=== PATIENT | male | born 1960 | race Caucasian/White ===

== ENCOUNTER 2018-01-20 01:26 | Inpatient (IN) | payer OTHER ==
[2018-01-20] MEDS ORDERED: Fentanyl 100 MCG/2 ML VIAL ONE (02:33)
[2018-01-20 02:54] LABS: Troponin I Less than 0.010 ng/mL (< 0.028)
[2018-01-20] MEDS ORDERED: Sodium Chloride 0.9% 1,000 ML IV SCH (05:59)
[2018-01-20] MEDS ORDERED: Zolpidem Tartrate 5 MG TAB PO PRN (07:05)
[2018-01-20] MEDS ORDERED: Eucerin (Mineral Oil/Petrolatum,White) 30 gm Jar TOP PRN (07:05)
[2018-01-20] MEDS ORDERED: Ondansetron ODT 4 MG TAB PO PRN (07:05)
[2018-01-20] MEDS ORDERED: Labetalol HCl 100 MG/20 ML VIAL SLOW IVP PRN (07:05)
[2018-01-20] MEDS ORDERED: Sodium Chloride 0.65% Nasal 44 ML BOT EA NARE PRN (07:05)
[2018-01-20] MEDS ORDERED: Loratadine 10 MG TAB PO PRN (07:05)
[2018-01-20] MEDS ORDERED: Morphine 4 MG/ML Carpuject SLOW IVP PRN (07:05)
[2018-01-20] MEDS ORDERED: Mag-Al 1200 mg/1200 mg/30 ML UDCUP PO PRN (07:05)
[2018-01-20] MEDS ORDERED: HYDROcodone/Acetaminophen 5/325 mg Tablet PO PRN (07:05)
[2018-01-20] MEDS ORDERED: Chloraseptic Spray 180 ml Bottle PO PRN (07:05)
[2018-01-20] MEDS ORDERED: Milk Of Magnesia 30 ML UDCUP PO PRN (07:05)
[2018-01-20] MEDS ORDERED: Loperamide HCl 2 MG CAP PO PRN (07:05)
[2018-01-20] MEDS ORDERED: Acetaminophen 325 MG TAB PO PRN (07:05)
[2018-01-20] MEDS ORDERED: Ondansetron HCl/PF 4 MG/2 ML Vial IVP PRN (07:05)
[2018-01-20] MEDS ORDERED: Diabetic Tussin 200 MG/10 ML UDCUP PO PRN (07:05)
[2018-01-20] MEDS ORDERED: Senokot 8.6 MG TAB PO PRN (07:05)
[2018-01-20] MEDS ORDERED: hydrALAZINE 20 MG/ML VIAL SLOW IVP PRN (07:05)
[2018-01-20] MEDS ORDERED: Artificial Tears 18 DROP/0.9 ML EA EYE PRN (07:05)
[2018-01-20 08:02] VITALS: BMI 32.8
[2018-01-20] MEDS: Famotidine/PF 20 mg/2ml Vial SLOW IVP SCH ×2 (09:26→21:47)
[2018-01-20] MEDS: Enoxaparin Sodium 40 MG/0.4 ML SYRINGE SC SCH (09:26)
[2018-01-20] MEDS: Morphine 4 MG/ML VIAL IV PRN ×4 (09:26→22:50)
--- NOTE | 2018-01-20 10:38 | ULT ---
PRELIMINARY REPORT/[facility]/EMERGENTY AFTER-HOURS PROCEDURE US Abdomen Limited, Right Upper Quadrant EXAM DATE/TIME: Exam ordered 01/20/2018 2:44 AM CLINICAL HISTORY: 57 years old, male; Pain; Abdominal pain; Epigastric; Patient HX: Epigastric pain x 2 days TECHNIQUE: Real-time ultrasound of the right upper quadrant with image documentation. COMPARISON: No relevant prior studies available. FINDINGS: Liver: The liver is echogenic in appearance compatible with fatty liver. There is a focal area of dec reased echogenicity suggestive of focal fatty sparing. No intrahepatic bile duct dilation. Gallbladder: There is no cholelithiasis, gallbladder wall thickening or pericholecystic fluid. A nega tive sonographic Johnson sign is reported. Common bile duct: CBD measures 3 mm in diameter. No stones. No dilation. Pancreas: The pancreas is poorly-visualized due to overlying bowel gas. Right kidney: RIGHT kidney measures 10.3 x 5.8 x 4.8 cm. No stones. No hydronephrosis. IMPRESSION: No ultrasound evidence of acute RIGHT upper quadrant pathology. Hepatic steatosis with focal fatty sparing. Thank you for allowing us to participate in the care of your patient. Dictated and Authenticated by: Osiel Bermudez MD 01/20/2018 5:40 AM Central Time ([place] & [place]) FINAL REPORT ULTRASOUND RIGHT UPPER QUADRANT: HISTORY: Epigastric abdominal pain. COMPARISON: CT of the prior day. FINDINGS: Real-time, lozano scale, and color Doppler evaluation of the right upper quadrant was performed. Pancr eas is not well seen. Increased hepatic echotexture. The portal vein is patent with antegrade flow. The liver measures 18.4 cm in length with increased hepatic echotexture. Gallbladder wall thickness is normal. No cholelithiasis. The right kidney measures 10.3 x 5.8 x 4.8 cm without mass, hydronephrosis, or ab normal calcifications. There appears to be a focal area of fatty sparing along the right lobe of the liver posteriorly. IMPRESSION: 1. No acute intraabdominal abnormality. No gallbladder pathology. 2. Likely focal area of fatty sparing along the right posterior lobe of the liver that seen on CT ex amination abnormally. CODE: QA POS: [facility]
--- NOTE | 2018-01-20 10:57 | HP ---
PRIMARY CARE PHYSICIAN: [facility] call admission. REASON FOR ADMISSION: Transfer from [facility] with acute pancreatitis. HISTORY OF PRESENT ILLNESS: A 57-year-old male who initially went to [facility] for evalu ation of epigastric abdominal pain. Patient's pain started around 4 a.m. prior to coming to emergenc y room. Patient was pointing his pain in epigastric area. Patient did felt some vague discomfort on his back, but he is not sure about radiation of pain. He was feeling nauseated and pain was constan t about 8/10 in intensity. There was no specific relieving factor. The patient denies any associate d diaphoresis. Patient denies any shortness of breath, palpitation, dizziness or syncope. He denies any fever or chills. Patient does not recall any precipitating factors for this recurrent pain and he was not sure how this pain started. He drank only one glass of beer 1 week before, but he is not alcoholic. He denies any fever or chills. He denies any UTI symptoms. He denies any hematemesis, m jose carlos or hematochezia. Patient has a history of hypertension and dyslipidemia, and that is well controlled with his medicati on. At [facility], patient was given morphine 4 mg x3 and Zofran [address] angiography wa s done which did not show any dissection, but it showed focal pancreatitis. Patient was transferred from [facility] to our emergency room and subsequently he was admitted to medical floor. The patient denies any similar problem in the past. REVIEW OF SYSTEMS: The following complete review of systems was negative, unless otherwise mentioned in the HPI or below: Constitutional: Weight loss or gain, ability to conduct usual activities. Skin: Rash, itching. Eyes: Double vision, pain. ENT/Mouth: Nose bleeding, neck stiffness, pain, tenderness. Cardiovascular: Palpitations, dyspnea on exertion, orthopnea. Respiratory: Shortness of breath, wheezing, cough, hemoptysis, fever or night sweats. Gastrointestinal: Poor appetite, abdominal pain, heartburn, nausea, vomiting, constipation, or diarr hea. Genitourinary: Urgency, frequency, dysuria, nocturia. Musculoskeletal: Pain, swelling. Neurologic/Psychiatric: Anxiety, depression. Allergy/Immunologic: Skin rash, bleeding tendency. Please see my HPI for pertinent positive and negative. All other review of systems reviewed and nega tive except as mentioned in the HPI. PAST MEDICAL HISTORY: Hypertension, dyslipidemia. PAST SURGICAL HISTORY: Left knee surgery x4, tonsillectomy, some tumor removed from his left chest. PAST PSYCHIATRIC HISTORY: Reviewed and negative. SOCIAL HISTORY: Patient is chewing tobacco. He is a former drug abuser. He abused cocaine and imer fidelina. He drinks alcohol twice a month. FAMILY HISTORY: No strong family history of premature coronary artery disease, stroke or cancer. ALLERGIES: PENICILLIN. CURRENT HOME MEDICATIONS: Lisinopril 10 mg p.o. daily, Lipitor 20 mg p.o. daily. EMERGENCY ROOM COURSE: Patient was given morphine 4 mg x3, Zofran 4 mg at [facility]. In our emergency room, patient was given fentanyl 50 microgram and morphine 2 mg. PHYSICAL EXAMINATION: VITAL SIGNS: On arrival, blood pressure 154/92, pulse 65, respiratory rate 18, temperature 98.9, sat uration 97% on room air, weight of 106.6 kilograms. GENERAL: Patient is currently alert, awake, no obvious acute distress. HEAD: Normocephalic, atraumatic. EYES: Pupils round, reactive to light. Extraocular muscle intact. ENT: Oropharynx within normal limits. Moist mucous membranes. No oral lesion, no pharyngeal erythe ma, no exudate. NECK: Supple, no JVD, no thyromegaly, no carotid bruit, no jugular venous distention. LUNGS: Clear to auscultation without any rhonchi or rales. CARDIAC: S1, S2 regular. No murmur, no gallop, no rub. ABDOMEN: Patient does have epigastric tenderness on deep palpation. No peritoneal sign, no guarding , no rigidity, no rebound, no suprapubic tenderness, no Johnson sign. BACK: Examination unremarkable, no CVA tenderness. EXTREMITIES: Upper extremity passive movements of all joints are normal. Lower extremities: No lukas ma. Good peripheral pulsation. SKIN: No skin rash. HEMATOLOGICAL SYSTEM: No lymphadenopathy. PSYCHIATRIC: Normal affect. IMAGING DATA AND SIGNIFICANT LABORATORY DATA: EKG showing normal sinus rhythm without any ischemic c hanges. CT dissection protocol, which was done in the emergency room showed mild inflammatory change s in pancreatic head. Thoracic and abdominal aorta within normal limits without any dissection. Jeimy st x-ray based on my review, no acute cardiopulmonary process. CBC: WBC 14.0, hemoglobin 15.0, plat elet 214. BMP: Sodium 140, potassium 3.7, chloride 106, carbon dioxide 22, anion gap 16, BUN 15, cr eatinine 1.05, glucose of 103, calcium 9.6. LFT: AST 33, ALT 48, alkaline phosphatase 122, albumin 4.3. Cardiac enzymes negative x2. Lipase 32. ASSESSMENT AND PLAN/IMPRESSION: 1. Acute focal pancreatitis. Patient has pancreatic head inflamed. Surprisingly, his lipase is nor mal. The patient's clinical presentation is consistent with epigastric abdominal pain which radiates a little bit on the back associated with nausea. Etiology of pancreatitis is not known, but we are going to do ultrasound right upper quadrant to rule out any gallbladder pathology. If we are not abl e to find any specific etiology of his pancreatitis, then patient may need outpatient endoscopic ultr asound for further evaluation. We will check lipid profile. We will repeat labs again today. We wi ll repeat labs again tomorrow CBC, CMP, lipase, lipid profile, CRP, magnesium and phosphorus. Today, we will start liquid diet in evening time. We will continue with Pepcid 20 mg p.o. twice daily. We will continue IV fluid with NS at 125 mL per hour. We will treat symptomatically. 2. Hypertension. We will continue lisinopril 10 mg p.o. daily and use hydralazine p.r.n. basis.. 3. Dyslipidemia. We will continue Lipitor 20 mg p.o. at bedtime and check lipid profile tomorrow mo rning. 4. Obesity with body mass index 32. Dietary education given, weight loss education given. Healthy lifestyle measures discussed with the patient. 5. Intermittent alcohol use as well as tobacco chewing. I have provided patient education about hea lthy lifestyle and avoidance of alcohol as well as tobacco products. 6. Deep venous thrombosis prophylaxis, Lovenox 40 mg subcu daily. 7. Gastrointestinal prophylaxis, Pepcid 20 mg IV b.i.d. 8. Code status: The patient is FULL CODE. The patient does not have any surrogate decision maker. Disposition plan based on clinical course. We are expecting patient's stay in hospital more than 2 m idnights. Plan of care discussed with the patient in detail.
[2018-01-20] MEDS: Sodium Chloride 0.9% 1,000 ML IV SCH ×2 (13:32→21:51)
--- NOTE | 2018-01-20 19:57 | CON ---
DATE OF CONSULTATION: 01/20/2018 HISTORY OF PRESENT ILLNESS: The patient is a 57-year-old male who was in normal state of h ealth until yesterday. In the machine burrer hours, when he developed severe lower chest pain, this w as in the lower chest epigastric area. He said it was severe, constant, nonradiating. He sought car e in the emergency room and a CT dissection was performed. This showed mild inflammatory stranding a djacent to the pancreatic head. Findings may have felt to be related to pancreatitis. No other abno rmalities were noted. The patient here subsequently underwent an abdominal ultrasound which showed n o abnormalities. The patient received analgesics and is feeling much better. He is hungry and never lost his appetite during this episode, he had no nausea, vomiting. He has had no prior episodes of this in the past. PAST MEDICAL HISTORY: Significant for hypertension and high cholesterol. PAST SURGICAL HISTORY: Includes knee surgery and tonsillectomy. SOCIAL HISTORY: He chews tobacco, drinks one beer occasionally. FAMILY HISTORY: Negative for pancreatic disorders. ALLERGIES: PENICILLIN. HOME MEDICATIONS: Include lisinopril 10 mg p.o. daily, atorvastatin 20 mg p.o. q.p.m. REVIEW OF SYSTEMS: CONSTITUTIONAL: No fever, chills, no weight loss. EYES: No blurred vision or d ouble vision. ENT: No sore throat or earaches. CARDIOVASCULAR: No chest pain or palpitations. PU LMONARY: No shortness of breath, cough or wheezing. GASTROINTESTINAL: See above. : No hematuri a or dysuria. MUSCULOSKELETAL: No joint pain or muscle weakness. SKIN: No rashes. NEUROLOGIC: N o numbness or seizure activity. PHYSICAL EXAMINATION: VITAL SIGNS: Shows temperature 97.9, pulse 54, respiratory rate 12, blood pressure 133/75. HEENT: Unremarkable. NECK: Supple. CHEST: Clear. CARDIOVASCULAR: Regular rate and rhythm. ABDOMEN: Soft and nontender without organomegaly or masses. LABORATORY DATA: Shows a white blood cell count 14.0, hemoglobin 15, hematocrit of 47.6. Chemistry is totally normal with a lipase of 32. ASSESSMENT: Epigastric pain - this might be mild pancreatitis, although his lipase is normal. RECOMMENDATIONS: 1. EGD. 2. Begin clear liquids.
[2018-01-20] MEDS ORDERED: Atorvastatin Calcium 20 MG TAB PO SCH (21:00)
[2018-01-21] MEDS: Sodium Chloride 0.9% 1,000 ML IV SCH ×2 (00:16→05:56)
[2018-01-21 05:32] LABS: #Eosinphils 0.1 thou/uL (0.0-0.7); #Lymphocytes 2.9 thou/uL (1.20-3.40); #Monocytes 0.6 thou/uL (0.11-0.59); #Neutrophils 5.1 thou/uL (1.40-6.50); %Basophils 0.2 % (0.0-1.0); %Eosinophils 1.4 % (0.0-10.0); %Lymphocytes 33.4 % (21.0-51.0); Hemoglobin 13.4 g/dL (14.0-18.0); Mean Corpuscular HGB CONC 32.4 g/dL (32.0-36.0); Mean Corpuscular Hemoglobin 29.7 pg (27.0-31.0); Mean Corpuscular Volume 91.7 fL (78.0-98.0); Mean Platelet Volume 8.5 fL (7.4-10.4); Platelet Count 167 thou/uL (130-400); RBC Distribution Width 12.4 % (11.5-14.5); White Blood Cell (WBC) Count 8.8 thou/uL (4.8-10.8)
[2018-01-21] MEDS: Morphine 4 MG/ML VIAL IV PRN (05:47)
[2018-01-21 05:59] LABS: ALT (SGPT) 35 U/L (8-55); AST (SGOT) 22 U/L (5-34); Albumin 3.6 g/dL (3.5-5.0); Alkaline Phosphatase 110 U/L (40-150); Anion Gap 10 mmol/L (10-20); BUN (Urea Nitrogen) 12 mg/dL (8.4-25.7); Bilirubin, Total 0.9 mg/dL (0.2-1.2); CRP (Inflammatory) 9.34 mg/dL (= or < 0.5); Calc. Creatinine Clearance 166 mL/min (70-130); Calcium 8.8 mg/dL (7.8-10.44); Carbon Dioxide 26 mmol/L (22-29); Cardiac Risk 3.7 (Less than 4.5); Chloride 107 mmol/L (98-107); Cholesterol 151 mg/dl (< 200 Desired); Estimated GFR-MDRD Greater than 90; Globulin 2.3 g/dL (2.4-3.5); Glucose 84 mg/dL (70-105); HDL Cholesterol 41 mg/dL (>60 Neg Risk); LDL Cholesterol, Calculated 93 mg/dL; Potassium 3.8 mmol/L (3.5-5.1); Protein, Total 5.9 g/dL (6.0-8.3); Sodium 139 mmol/L (136-145); Triglycerides 85 mg/dL (Less than 150)
[2018-01-21] MEDS ORDERED: Lisinopril 10 MG TAB PO SCH (09:00)
[2018-01-21] MEDS ORDERED: Ondansetron HCl/PF 4 MG/2 ML Vial IVP PRN (09:58)
[2018-01-21] MEDS ORDERED: Promethazine HCl 25 MG/ML VIAL SLOW IVP PRN (09:58)
[2018-01-21] MEDS ORDERED: Morphine Sulfate 2 MG/ML SYRINGE SLOW IVP PRN (09:58)
[2018-01-21] MEDS ORDERED: Promethazine HCl 25 MG/ML VIAL IM PRN (09:58)
[2018-01-21] MEDS ORDERED: Meperidine HCl/PF 25 MG/ML VIAL SLOW IVP PRN (09:58)
--- NOTE | 2018-01-21 10:17 | OP ---
PREOPERATIVE DIAGNOSIS: Epigastric pain. DESCRIPTION OF PROCEDURE: After informed consent was obtained, the patient was placed in the left la teral decubitus position. Anesthesia was administered per the Anesthesia Department. Forward-viewin g endoscope was inserted into the esophagus under direct visualization with ease and passed to the se cond portion of the duodenum with ease. Second portion of the duodenum and duodenal bulb were normal . Pylorus, antrum, body, fundus, and cardia were normal. Retroflexion in the stomach was normal. E sophagus was normal throughout. ASSESSMENT: Normal esophagogastroduodenoscopy. RECOMMENDATIONS: 1. We will treat as if he has pancreatitis. 2. Begin clear liquids.
--- NOTE | 2018-01-21 11:25 | PDOC.PN ---
- Subjective Encounter Start Date: 01/21/18 Encounter Start Time: 08:00 Patient seen and examined. No new complaints. No overnight events - Objective Resuscitation Status: Resuscitation Status FULL:Full Resuscitation MAR Reviewed: Yes Vital Signs & Weight: Vital Signs (12 hours) Temp Pulse Resp BP Pulse Ox 01/21/18 07:39 98.1 F 50 L 16 148/84 H 97 01/21/18 04:00 98 F 43 L 16 138/81 97 01/20/18 23:51 98.8 F 55 L 18 127/78 95 Weight Weight 235 lb I&O: 01/20/18 01/21/18 01/22/18 06:59 06:59 06:59 Intake Total 2375 Balance 2375 Result Diagrams: 01/21/18 04:50 01/21/18 04:50 Phys Exam - Physical Examination Constitutional: NAD HEENT: PERRLA, moist MMs, sclera anicteric Neck: no JVD, supple Respiratory: no wheezing, no rales, no rhonchi Cardiovascular: RRR, no significant murmur, no rub Gastrointestinal: soft, non-tender, no distention, positive bowel sounds Musculoskeletal: no edema, pulses present Neurological: non-focal, normal sensation, moves all 4 limbs Psychiatric: normal affect, A&O x 3 Skin: no rash, normal turgor Dx/Plan (1) Acute pancreatitis Code(s): K85.90 - ACUTE PANCREATITIS WITHOUT NECROSIS OR INFECTION, UNSP Status: Acute (2) Epigastric abdominal pain Code(s): R10.13 - EPIGASTRIC PAIN Status: Acute (3) Dyslipidemia Code(s): E78.5 - HYPERLIPIDEMIA, UNSPECIFIED Status: Chronic (4) Hypertension Code(s): I10 - ESSENTIAL (PRIMARY) HYPERTENSION Status: Chronic (5) Obesity (BMI 30.0-34.9) Code(s): E66.9 - OBESITY, UNSPECIFIED Status: Chronic (6) Tobacco chew use Code(s): Z72.0 - TOBACCO USE Status: Chronic - Plan cont current plan of care * medication reviewed as below * symptomatic treatment * today plan for EGD * after EGD will advance diet * If he tolerates well, then will consider discharge tomorrow morning * continue IVF * continue protonix * counselled to avoid tobacco product. Review of Systems - Review of Systems Eyes: negative: Pain, Vision Change, Conjunctivae Inflammation, Eyelid Inflammation, Redness, Other ENT: negative: Ear Pain, Ear Discharge, Nose Pain, Nose Discharge, Nose Congestion, Mouth Pain, Mouth Swelling, Throat Pain, Throat Swelling, Other Respiratory: negative: Cough, Dry, Shortness of Breath, Hemoptysis, SOB with Excertion, Pleuritic Pain, Sputum, Wheezing Cardiovascular: negative: chest pain, palpitations, orthopnea, paroxysmal nocturnal dyspnea, edema, light headedness, other Gastrointestinal: negative: Nausea, Vomiting, Abdominal Pain, Diarrhea, Constipation, Melena, Hematochezia, Other Genitourinary: negative: Dysuria, Frequency, Incontinence, Hematuria, Retention , Other Musculoskeletal: negative: Neck Pain, Shoulder Pain, Arm Pain, Back Pain, Hand Pain, Leg Pain, Foot Pain, Other Skin: negative: Rash, Lesions, Ajit, Bruising, Other - Medications/Allergies Allergies/Adverse Reactions: Allergies Allergy/AdvReac Type Severity Reaction Status Date / Time Penicillins Allergy Verified 01/20/18 05:58 Medications: Current Medications Acetaminophen (Tylenol) 650 mg PO Q4H PRN PRN Reason: Headache/Fever or Pain Hydrocodone Bitart/Acetaminophen (Superior 5/325) 1 tab PO Q4H PRN PRN Reason: Moderate Pain (4-6) Al Hydroxide/Mg Hydroxide (Maalox) 30 ml PO Q6H PRN PRN Reason: Heartburn or Indigestion Artificial Tears (Tears Naturale) 0 drop EA EYE PRN PRN PRN Reason: Dry Eyes Atorvastatin Calcium (Lipitor) 20 mg PO QPM [facility] Last Admin: 01/20/18 21:47 Dose: 20 mg Enoxaparin Sodium (Lovenox) 40 mg SC 0900 [facility] Last Admin: 01/20/18 09:26 Dose: 40 mg Famotidine (Pepcid) 20 mg SLOW IVP Q12HR [facility] Last Admin: 01/20/18 21:47 Dose: 20 mg Guaifenesin (Robitussin Sf) 200 mg PO Q4H PRN PRN Reason: Cough Hydralazine HCl (Apresoline) 10 mg SLOW IVP Q4H PRN PRN Reason: Systolic BP > 180 Sodium Chloride (Normal Saline 0.9%) 1,000 mls @ 125 mls/hr IV .Q8H [facility] Last Admin: 01/21/18 05:56 Dose: 1,000 mls Labetalol HCl (Normodyne) 20 mg SLOW IVP Q4H PRN PRN Reason: Systolic BP > 180 Lisinopril (Zestril) 10 mg PO QAM RADHA Loperamide HCl (Imodium) 2 mg PO PRN PRN PRN Reason: Diarrhea/Loose Stools Loratadine (Claritin) 10 mg PO DAILYPRN PRN PRN Reason: Sinus Symptoms Magnesium Hydroxide (Milk Of Magnesium) 30 ml PO DAILYPRN PRN PRN Reason: Constipation Meperidine HCl (Pacu-Demerol) 12.5 mg SLOW IVP ONE PRN PRN Reason: Shivering Stop: 01/21/18 12:59 Mineral Oil/White Petrolatum (Eucerin Cream) 0 gm TOP BIDPRN PRN PRN Reason: Dry Skin Morphine Sulfate (Morphine) 4 mg IV Q4H PRN PRN Reason: Pain Last Admin: 01/21/18 05:47 Dose: 4 mg Morphine Sulfate (Pacu-Morphine Sulfate) 2 mg SLOW IVP Q10MIN PRN PRN Reason: Moderate to Severe Pain (6-10) Stop: 01/21/18 12:59 Morphine Sulfate (Pacu-Morphine Sulfate) 4 mg SLOW IVP ONE PRN PRN Reason: Moderate to Severe Pain (6-10) Stop: 01/21/18 12:59 Ondansetron HCl (Zofran Odt) 4 mg PO Q6H PRN PRN Reason: Nausea/Vomiting Ondansetron HCl (Zofran) 4 mg IVP Q6H PRN PRN Reason: Nausea/Vomiting Ondansetron HCl (Pacu-Zofran) 4 mg IVP ONE PRN PRN Reason: Nausea/Vomiting Stop: 01/21/18 12:58 Phenol (Chloraseptic [place] 180 Ml Bot) 0 ml PO PRN PRN PRN Reason: Sore Throat Promethazine HCl (Pacu-Phenergan) 6.25 mg SLOW IVP ONE PRN PRN Reason: Nausea/Vomiting Stop: 01/21/18 12:58 Promethazine HCl (Pacu-Phenergan) 6.25 mg IM ONE PRN PRN Reason: Nausea/Vomiting Stop: 01/21/18 12:58 Senna (Senokot) 2 tab PO HSPRN PRN PRN Reason: Constipation Sodium Chloride (Mccrory Nasal [place] 0.65%) 0 ml EA NARE QIDPRN PRN PRN Reason: Nasal Congestion Sodium Chloride (Flush - Normal Saline) 10 ml IVF Q12HR RAD[facility] Last Admin: 01/20/18 22:49 Dose: Not Given Sodium Chloride (Flush - Normal Saline) 10 ml IVF PRN PRN PRN Reason: Saline Flush Zolpidem Tartrate (Ambien) 5 mg PO HSPRN PRN PRN Reason: Insomnia
[2018-01-21] MEDS: Enoxaparin Sodium 40 MG/0.4 ML SYRINGE SC SCH (11:57)
[2018-01-21] MEDS: Famotidine/PF 20 mg/2ml Vial SLOW IVP SCH (11:57)
[2018-01-21 12:18] VITALS: BP 153/87; TEMP 98.9
--- NOTE | 2018-01-21 12:51 | DIS ---
DATE OF ADMISSION: 01/20/2018 DATE OF DISCHARGE: 01/21/2018 PRIMARY CARE PHYSICIAN: [facility] call admission. DISCHARGE DISPOSITION: Home. PRIMARY DISCHARGE DIAGNOSES: Acute focal pancreatitis improved, epigastric abdominal pain due to pro blem #1, resolved. SECONDARY DISCHARGE DIAGNOSES: Hypertension, dyslipidemia, obesity with body mass index 32, tobacco chew disorder. PRIMARY PROCEDURE/OPERATION: Upper endoscopy was performed by Dr. Ji, which was normal. RADIOLOGICAL INVESTIGATION: Abdominal ultrasound showed fatty liver without any acute process. CT o f the abdomen and pelvis done at other emergency room which showed pancreatic head inflammation. SIGNIFICANT LABORATORY DATA: WBC 8.8, hemoglobin 13.4, platelet 167. Sodium 139, potassium 3.8, BUN 12, creatinine 0.75, glucose 84, calcium 8.4, phosphorus 3.0, magnesium 2.0. LFT: AST 22, ALT 35, alkaline phosphatase 110. CRP 9.34, albumin 3.6, triglyceride 85, cholesterol 151, LDL 93, lipase 18 . Cardiac enzymes negative. DISCHARGE MEDICATIONS: Lipitor 20 mg p.o. daily, lisinopril 10 mg p.o. daily, Protonix 40 mg p.o. da stephen. CONTRAINDICATIONS: None. CODE STATUS: FULL CODE. INPATIENT SIEBEL CONSULTANT: Dr. Ji was consulted while in hospital who did EGD. TEST RESULTS PENDING ON DISCHARGE: None. ALLERGIES: PENICILLIN. DISCHARGE PLAN: Post hospital, patient will follow up with primary care physician, Dr. Katrina mckeon and Hand Endband Cutter, Dr. Garrison Dumont as instructed. HOSPITAL COURSE: A 57-year-old male with above-mentioned medical problem who initially went to [facility] with a complaint of acute onset of epigastric abdominal pain associated with nausea. At the [facility], his electrocardiogram was normal. Cardiac enzymes were negative. Th ey did a CT dissection protocol, which showed no evidence of dissection, but incidentally found with pancreatitis in pancreatic head. Surprisingly, his lipase was normal, but his clinical presentation was consistent with pancreatitis. The patient was transferred to our emergency room. Patient had ul trasound of the right upper quadrant which was normal. Patient was evaluated by Dr. Ji, GI special ist and he recommended to do upper endoscopy to rule out any duodenal pathology and his upper endosco py came back normal. The patient's epigastric pain was completely improved. He was tolerating p.o. well. He remained hemodynamically stable while in hospital. We checked lipid profile which was also normal. He does not have any significant alcohol abuse history. So we do not clear about etiology of his pancreatitis. We instructed this patient to follow up with dehydrogenation supervisor to get endoscop ic ultrasound as an outpatient basis. While in hospital, we controlled his pain with morphine. We g ave him IV fluid and hydrated well. Today after upper endoscopy, patient is feeling hungry and he wa nts to eat and he wants to go home. Based on his request, we decided to let him go home. We provide d patient education about low fat, low cholesterol diet and follow up with dehydrogenation supervisor as an o utpatient basis. His right upper quadrant ultrasound was also normal. The patient is seen and examined at bedside today. Please see my progress note from today for furthe r detail. The patient is medically stable for discharge. We are changing to Protonix upon discharge . Total time spent on discharge was 31 minutes.
[2018-01-21] MEDS ORDERED: Lidocaine 1% PF 5 ML VIAL ONE (15:22)
[2018-01-21] MEDS ORDERED: PROPOFOL 200 MG/20 ML VIAL ONE (15:22)
== END 2018-01-21 15:11 | disposition home or self-care (01) | DRG 440 ==
LOC: ERS 01:26 → SURG A 03:13
PROVIDERS: ADMIT Hospitalist; ATTEND Hospitalist
PROC: 0DJ08ZZ Inspection of Upper Intestinal Tract, Via Natural or Artificial Opening Endoscopic (ICD-10-PCS; principal; 2018-01-20)
DX: K85.90 Acute pancreatitis without necrosis or infection, unspecified (principal); I10 Essential (primary) hypertension; E78.5 Hyperlipidemia, unspecified; E66.9 Obesity, unspecified; Z68.32 Body mass index [BMI] 32.0-32.9, adult; F17.220 Nicotine dependence, chewing tobacco, uncomplicated
CPT/HCPCS: 36415; 76705; 80053; 80061; 83690; 83735; 84100; 84484; 85025; 86140; 93005; 96374; 96375; J1650; J2001; J2270; J2704; J3010; S0028

== ENCOUNTER 2018-01-28 00:16 | Inpatient (IN) | payer OTHER ==
[2018-01-28 01:03] LABS: #Basophils 0.1 thou/uL (0.0-0.2); #Eosinphils 0.2 thou/uL (0.0-0.7); #Lymphocytes 2.9 thou/uL (1.20-3.40); #Monocytes 1.1 thou/uL (0.11-0.59); #Neutrophils 9.3 thou/uL (1.40-6.50); %Basophils 0.6 % (0.0-1.0); %Eosinophils 1.3 % (0.0-10.0); %Lymphocytes 21.2 % (21.0-51.0); %Monocytes 8.1 % (0.0-10.0); %Neutrophils 68.7 % (42.0-75.0); Hemoglobin 15.8 g/dL (14.0-18.0); Mean Corpuscular HGB CONC 33.5 g/dL (32.0-36.0); Mean Corpuscular Hemoglobin 30.4 pg (27.0-31.0); Mean Corpuscular Volume 90.7 fL (78.0-98.0); Platelet Count 227 thou/uL (130-400); RBC Distribution Width 12.5 % (11.5-14.5); Red Blood Cell (RBC) Count 5.18 mill/uL (4.70-6.10); White Blood Cell (WBC) Count 13.5 thou/uL (4.8-10.8)
[2018-01-28 01:25] LABS: ALT (SGPT) 89 U/L (8-55); AST (SGOT) 76 U/L (5-34); Albumin 4.3 g/dL (3.5-5.0); Alkaline Phosphatase 165 U/L (40-150); Anion Gap 14 mmol/L (10-20); BUN (Urea Nitrogen) 18 mg/dL (8.4-25.7); Bilirubin, Total 0.4 mg/dL (0.2-1.2); Calc. Creatinine Clearance 0 mL/min (70-130); Calcium 9.8 mg/dL (7.8-10.44); Carbon Dioxide 24 mmol/L (22-29); Chloride 103 mmol/L (98-107); Estimated GFR-MDRD Greater than 90; Globulin 3.1 g/dL (2.4-3.5); Glucose 101 mg/dL (70-105); Potassium 4.2 mmol/L (3.5-5.1); Protein, Total 7.4 g/dL (6.0-8.3); Sodium 137 mmol/L (136-145)
[2018-01-28 01:29] LABS: Troponin I Less than 0.010 ng/mL (< 0.028)
[2018-01-28] MEDS ORDERED: Metoclopramide HCl 10 MG/2 ML VIAL ONE (03:05)
[2018-01-28 03:18] LABS: Bilirubin Negative (Negative); Blood, Urine Small (Negative); Clarity CLEAR (Clear); Glucose, Urine (Dipstick) 100 mg/dL (Negative); Leukocyte Negative (Negative); Nitrite Negative (Negative); Protein, Urine (Dipstick) Negative (Neg-Trace); Specific Gravity, Urine 1.012 (1.002-1.036); Urobilinogen 0.2 mg/dL (0.2-1.0); pH, Urine 5.5 (5.0-9.0)
[2018-01-28 03:21] LABS: Bacteria/HPF None Seen HPF (None Seen); Hyaline Casts/LPF 0-3 HYALINE CAST LPF (0-3 Hyaline); Squamous Epithelial None Seen HPF (0-3); WBC/HPF None Seen HPF (0-3)
[2018-01-28] MEDS ORDERED: Fentanyl 100 MCG/2 ML VIAL ONE (06:55)
[2018-01-28] MEDS ORDERED: Sodium Chloride 0.9% 1,000 ML IV SCH (07:46)
[2018-01-28] MEDS ORDERED: hydrALAZINE 20 MG/ML VIAL SLOW IVP PRN (07:46)
[2018-01-28] MEDS ORDERED: Ondansetron HCl/PF 4 MG/2 ML Vial IVP PRN (07:46)
[2018-01-28 07:59] VITALS: BMI 33.0
--- NOTE | 2018-01-28 07:59 | HP ---
PRIMARY CARE PHYSICIAN: Dr. Robin Saenz in [place], [place]. CHIEF COMPLAINT: Abdominal pain. HISTORY OF PRESENT ILLNESS: Mr. Watts is a pleasant 57-year-old gentleman that has a history of hy pertension and hypercholesterolemia. The patient was recently admitted to our facility for severe ep igastric pain. At that time, he was felt to have a mild pancreatitis. He underwent an EGD, which wa s essentially negative and by the time he was discharged, he was feeling much better. He went home a nd says that he was doing well on Tuesday, Tuesday and Tuesday. He said he felt okay. By Tuesday, he was back on a normal diet, but then by , the pain started coming back. He said it was not a s severe, but then by Tuesday, it started to get progressively worse. He says it is like a constant h eart ache in the middle of his stomach. He says it hurts so bad he cannot really tell if it is going anywhere. He rates it at about a 9-10/10. He says that he has had some nausea, but no vomiting, no change in his bowels. No dark stools, no fevers, no chills and due to the severity of the pain, he came to the emergency room for evaluation. In the ER, he was found to have a slightly elevated lipas e as well as elevated transaminases and alkaline phosphatase and he is being admitted for further susie luation and treatment. REVIEW OF SYSTEMS: All systems were reviewed and are negative except for that mentioned in the histo ry of present illness. PAST MEDICAL HISTORY: Significant for hypertension and hypercholesterolemia. PAST SURGICAL HISTORY: Has had 5 knee surgeries. He had a horse who kicked him and broke his jaw an d had to have this repaired tonsillectomy, benign cyst. ALLERGIES: PENICILLIN. SOCIAL HISTORY: He is , has two children. He dips snuff and occasionally drinks. He would l pola to be a FULL CODE. FAMILY HISTORY: Significant for heart disease. However, it is when his grandparents were in their 8 0s. MEDICATIONS: Include lisinopril 10 mg daily and a medication for cholesterol. PHYSICAL EXAMINATION: GENERAL: He is alert and oriented. He appears to be in no acute distress. VITAL SIGNS: Stable. HEENT: Pupils are equal, round, and reactive. Extraocular muscles are intact. Sclerae are anicteri c. Throat; no erythema, no exudates. NECK: No adenopathy, no bruits. LUNGS: Clear to auscultation. There was no wheezing or rales. CARDIOVASCULAR: He has a normal S1, S2. He has no S3 or S4. No murmurs, clicks or rubs. ABDOMEN: Obese, it is soft. Currently, it is nontender, nondistended. Positive for bowel sounds. There was no rebound or guarding. EXTREMITIES: There is no edema. NEUROLOGIC: His cranial nerves II-XII are intact. His muscle strength is 5/5 in both his upper and lower extremities. SKIN AND INTEGUMENT: There are no skin changes. No rash. LABORATORY RESULTS: Sodium 137, potassium 4.2, chloride is 103, CO2 is 24, BUN of 18, creatinine 0.8 6, glucose is 101, AST 76, ALT 89, alkaline phosphatase is 165, troponin less than 0.010, lipase is 8 5. White blood cell count 13.5, hemoglobin 15.8, hematocrit is 47, platelet count is 277. Urinalysi s was essentially normal. He has an abdominal ultrasound which is pending. ASSESSMENT AND PLAN: 1. This is a pleasant 57-year-old gentleman who is presenting with abdominal pain and he also has a slightly elevated lipase. He will be admitted to the medical floor. We will place him on IV fluids as well as IV antiemetics and a medication for pain. We will also place him on IV Protonix and GI wi ll be consulted for further recommendations. 2. For hypertension, since he will be n.p.o., we will place him on IV medications for blood pressure . Otherwise, we will await further recommendations from GI.
[2018-01-28] MEDS: Enoxaparin Sodium 40 MG/0.4 ML SYRINGE SC SCH (08:38)
--- NOTE | 2018-01-28 09:02 | ULT ---
PRELIMINARY REPORT/[facility]/EMERGENTY AFTER-HOURS PROCEDURE US Abdomen Limited, Right Upper Quadrant EXAM DATE/TIME: 01/28/2018 2:35 AM CLINICAL HISTORY: 57 years old, male; Pain; Other: Chest/abd pain, elevated lfts TECHNIQUE: Real-time ultrasound of the abdomen with image documentation. Examination is focused on the right upper quadrant. COMPARISON: US Gallbladder RUQ 2018-01-20 02:44 FINDINGS: Liver: Hepatic steatosis. Gallbladder: Normal. No gallstones. There is not gallbladder wall thickening. Common bile duct: Normal. No stones. No dilation. Pancreas: Visualized pancreas is unremarkable. Right kidney: Normal. No mass. No hydronephrosis. IMPRESSION: No acute findings. Thank you for allowing us to participate in the care of your patient. Dictated and Authenticated by: Robin Tran MD 01/28/2018 5:41 AM Central Time ([place] & [place]) EMERGENT AFTER HOURS RIGHT UPPER QUADRANT ULTRASOUND: 01/28/2018 HISTORY: Elevated liver function tests. FINDINGS: The pancreas is mostly obscured by bowel gas and is not well evaluated on this exam. The liver demonstrates increased echogenicity, suggesting diffuse fatty infiltration. No focal hepat ic lesion is seen. The visualized portions of the IVC, the gallbladder, and the right kidney demonstrate a normal sonogr aphic appearance. The right kidney measures 11.7 cm in length. The common duct measures 0.5 cm in diameter. IMPRESSION: 1. Fatty infiltration of the liver. 2. No acute findings visualized. The findings are in agreement with the preliminary report by Niharika. POS: [facility]
--- NOTE | 2018-01-28 09:28 | RAD ---
PORTABLE CHEST ONE VIEW: HISTORY: A 57-year-old male with a history of chest pain and epigastric and lower sternal pain. COMPARISON: 01/19/2018 FINDINGS: Heart size is normal. Lungs are clear. No pneumonia, edema, or pleural effusion. IMPRESSION: No acute intrathoracic disease. POS: [facility]
[2018-01-28] MEDS: Sodium Chloride 0.9% 1,000 ML IV SCH ×4 (12:21→22:01)
--- NOTE | 2018-01-28 16:54 | CON ---
DATE OF CONSULTATION: 01/28/2018 REASON FOR CONSULTATION: Abdominal pain. HISTORY OF PRESENT ILLNESS: Mr. Watts is a pleasant 57-year-old gentleman [facility] for epigastric and chest pain that was quite severe. He had a mildly elevated lipase and mildly elevated liver enzymes and was admitted with a diagnosis of possib le pancreatitis. His ultrasound showed no gallstones. The patient had a similar episode last week. He was here on the . At that time, he noted he had severe epigastric pain that started about 4 in the morning of the day he came in. It felt very deep. It was not necessarily in his back, but it was boring and did not fluctuate. He had associated nausea at that time. Cardiac enzymes were nega tive. He had a CAT scan for dissection protocol as his lipase was normal and that showed some focal inflammation in the head of the pancreas and some thickening of the duodenum in that area. He was tr ansferred here and seen by Dr. Ji, who thought that maybe he had an ulcer as his lipase was normal and EGD was completely normal. They decided to treat him as mild pancreatitis and actually the day o f his endoscopy, he went home, he was here for 24 hours. He states he did well at home, that was on a Tuesday, until about Tuesday he started having a little bit of pain again, but it was very mild. It got worse yesterday and he came back in. This is the same pain. The patient notes he drinks alcohol , maybe 3 times in 2 or 3 weeks. He did have one drink with an ounce of alcohol in it on Tuesday, but has had none since then. He does dip snuff. He denies any sick contacts. He has had no viral-like symptoms. He has no family history of pancreatic disease. He was taking quite a bit of NSAIDs, ibu profen for above knee the week before his first bout of pancreatitis, but has not been taking that re cently. He was started on a new medication about a month ago, lisinopril 10 mg daily. He has been o n that years ago with no problems at a higher dose and just recently as his blood pressure was up abo ut a month ago, this was restarted. Presently, he is urinating well. His urine is light in color. His pain medicines lasting just about every 3 hours. He has no fever, chills or nausea. He wonders when he can eat again. About every 3 hours, the pain seems to come back, but he says it is not as ba d as it was last night. He is trying to wait to see how long he can go without taking anything. He has no melena, hematochezia, hematemesis, recent weight loss, change in bowel function or reflux. He was discharged home on some Protonix last admission. REVIEW OF SYSTEMS: Cardiac: Negative. Respiratory: Negative. Urologic: Negative. Neurologic: Negative. Musculoskeletal: Negative. PAST MEDICAL HISTORY: Hypertension, hyperlipidemia. PAST SURGICAL HISTORY: Five knee surgeries, he had a horse kick him and break his jaw once, he has t onsillectomy, benign cyst and he had a colonoscopy in [place]. ALLERGIES: PENICILLIN. SOCIAL HISTORY: He is . He has 2 children. He dips snuff, occasionally drinks alcohol, but not very much at all. FAMILY HISTORY: Heart disease. He had a grandmother with colon cancer and a grandmother who had mal ignancy of some sort. Heart disease in his relatives who are all in their 80s. HOME MEDICATIONS: Lisinopril and atorvastatin. PRESENT MEDICATIONS: Here, Lovenox, Apresoline, morphine 2-4 mg q.4 hours p.r.n. for pain, Zofran, n ormal saline at 125 an hour. PHYSICAL EXAMINATION: GENERAL: The patient is resting comfortably in bed. at the bedside. He is in no distress. He is alert and oriented to person, place and time, very pleasant, a little bit overweight, but not muc h. VITAL SIGNS: Temperature is 98.2, pulse is 50, blood pressure 148/76, respirations 18, O2 sat 95%. HEENT: Oropharynx without lesions. Conjunctivae and sclerae are clear. NECK: Supple without adenopathy. LUNGS: Clear with no rales or rhonchi. HEART: Regular rate and rhythm. ABDOMEN: Soft. It is nondistended, nontympanitic. There is no shifting dullness or fluid wave. Th ere is mild tenderness in the epigastrium, but not much. There is no rebound or guarding. There is no right upper quadrant tenderness. There is no CVA tenderness. There is no lower abdominal tendern ess. Bowel sounds are quiet. EXTREMITIES: No clubbing, cyanosis or edema. SKIN: Without rash or lesions. LABORATORY STUDIES: White count 13.5, it was 8.0 on the , 14 on the . Hemoglobin is 15.8, p latelet count is 227,000. Sodium 137, potassium 4.2, chloride 103, bicarbonate 24, anion gap 12, BUN 18, creatinine 0.86. He was 12 and 0.75 on the . Glucose 109. AST is 76, ALT 89. These were 22 and 35 on last admission. Alkaline phosphatase is 165. Bilirubin is 0.4, protein 7.4, albumin 4. 3. Last admission, his triglycerides were 85. Lipase was 32 on admission last time, then 18 on disc har and this time it is 83. IMAGING: He had a CAT scan of the abdomen and pelvis when he came in last time for dissection protoc ol. I have reviewed that. It shows some mild fat stranding around the pancreas and mild thickening of the duodenum with C-loop. There was no evidence of dilated or irregular pancreatic duct. Pancrea s was not lobular to indicate any autoimmune features. There is no intrahepatic ductal dilatation. EGD was normal last admission. Ultrasound showed no gallstones and a common bile duct of 3 mm. He h ad some focal fatty liver. Ultrasound this admission, no gallstones, no gallbladder wall thickening, normal common bile duct, hepatic steatosis. ASSESSMENT: 1. This is a 57-year-old gentleman who has come in twice now in a week with abdominal pain, very julian racteristic of pancreatitis and mild inflammation of the pancreatic head on CAT scan last admission w ith normal lipase last time and a very mildly elevated lipase this time of 83. Last time, his LFTs w ere normal. This time, his AST and ALT are 76 and 89 and alkaline phosphatase is 165. Etiology of h is pain is unclear. This does seem to be pancreatitis. He had a normal EGD last admission. A CT sc an of abdomen showed no evidence of dissection. He does not appear to have a sick gallbladder. Ther e is a bump in liver enzymes this time, which could indicate a biliary source of pancreatic inflammat ion or this just could be relative edema in the head of the pancreas with this being a second bout in a week. Possible etiologies would include biliary pancreatitis, autoimmune pancreatitis or very pos sibly pancreatitis related to his AGUSTO inhibitor, which he started a month ago. 2. Elevated liver enzymes. These were normal last admission. I suspect this has to do with the inf lammation in the head of the pancreas. He shows no signs of gallstones or ductal dilatation to indic ate choledocholithiasis. RECOMMENDATIONS: 1. Increase IV fluids to 200 mL an hour. 2. N.p.o. 3. Pain control. 4. Ulcer prophylaxis. 5. Deep venous thrombosis prophylaxis. 6. We will repeat LFTs in the morning and lipase in the morning as well as renal function and CBC. If there are any signs of decompensation or fever, would reimage him and repeat LFTs immediately. Ot herwise, we will follow along with you and consider some type of gallbladder evaluation, possibly MRC P after he has been better hydrated.
[2018-01-29] MEDS: Sodium Chloride 0.9% 1,000 ML IV SCH ×4 (02:02→21:12)
[2018-01-29 07:17] LABS: #Eosinphils 0.1 thou/uL (0.0-0.7); #Lymphocytes 2.7 thou/uL (1.20-3.40); #Monocytes 0.7 thou/uL (0.11-0.59); #Neutrophils 5.6 thou/uL (1.40-6.50); %Basophils 0.3 % (0.0-1.0); %Eosinophils 1.3 % (0.0-10.0); %Monocytes 7.4 % (0.0-10.0); Hemoglobin 14.4 g/dL (14.0-18.0); Mean Corpuscular HGB CONC 33.6 g/dL (32.0-36.0); Mean Corpuscular Hemoglobin 30.9 pg (27.0-31.0); Mean Corpuscular Volume 91.9 fL (78.0-98.0); Mean Platelet Volume 7.9 fL (7.4-10.4); Platelet Count 199 thou/uL (130-400); RBC Distribution Width 12.5 % (11.5-14.5); Red Blood Cell (RBC) Count 4.67 mill/uL (4.70-6.10); White Blood Cell (WBC) Count 9.1 thou/uL (4.8-10.8)
[2018-01-29 07:40] LABS: Anion Gap 11 mmol/L (10-20); BUN (Urea Nitrogen) 10 mg/dL (8.4-25.7); Calc. Creatinine Clearance 165 mL/min (70-130); Carbon Dioxide 27 mmol/L (22-29); Chloride 106 mmol/L (98-107); Estimated GFR-MDRD Greater than 90; Glucose 78 mg/dL (70-105); Lipase 22 U/L (8-78); Potassium 3.9 mmol/L (3.5-5.1); Sodium 140 mmol/L (136-145)
[2018-01-29] MEDS: Enoxaparin Sodium 40 MG/0.4 ML SYRINGE SC SCH (07:55)
[2018-01-29 10:19] LABS: ALT (SGPT) 60 U/L (8-55); AST (SGOT) 38 U/L (5-34); Albumin 3.8 g/dL (3.5-5.0); Alkaline Phosphatase 123 U/L (40-150); Bilirubin, Direct 0.3 mg/dL (0.1-0.3); Protein, Total 6.6 g/dL (6.0-8.3)
[2018-01-29 11:14] LABS: ALT (SGPT) 59 U/L (8-55); AST (SGOT) 33 U/L (5-34); Alkaline Phosphatase 126 U/L (40-150); Bilirubin, Direct 0.3 mg/dL (0.1-0.3); Bilirubin, Total 0.9 mg/dL (0.2-1.2); Protein, Total 6.7 g/dL (6.0-8.3)
--- NOTE | 2018-01-29 13:37 | PDOC.PN ---
- Subjective Encounter Start Date: 01/29/18 Encounter Start Time: 13:35 Mr. Watts was seen in follow-up of Pancreatitis. He is feeling better. He has less abdominal pain. He was able to tolerate a clear liquid diet. - Objective Resuscitation Status: Resuscitation Status FULL:Full Resuscitation MAR Reviewed: Yes Vital Signs & Weight: Vital Signs (12 hours) Temp Pulse Resp BP Pulse Ox 01/29/18 11:44 62 01/29/18 11:41 175/87 H 01/29/18 08:00 97.9 F 62 18 95 01/29/18 07:25 97.9 F 62 18 161/82 H 95 01/29/18 04:00 97.9 F 51 L 12 146/67 H 96 Weight Weight 230 lb 9 oz I&O: 01/28/18 01/29/18 01/30/18 06:59 06:59 06:59 Intake Total 1999 Balance 1999 Result Diagrams: 01/29/18 06:48 01/29/18 06:48 Phys Exam - Physical Examination HEENT: PERRLA Respiratory: no wheezing, no rales, no rhonchi, clear to auscultation bilateral Cardiovascular: RRR, no significant murmur, no rub Gastrointestinal: soft, non-tender, no distention, positive bowel sounds Musculoskeletal: no edema Dx/Plan (1) Acute pancreatitis Code(s): K85.90 - ACUTE PANCREATITIS WITHOUT NECROSIS OR INFECTION, UNSP Status: Acute (2) Dyslipidemia Code(s): E78.5 - HYPERLIPIDEMIA, UNSPECIFIED Status: Chronic (3) Hypertension Code(s): I10 - ESSENTIAL (PRIMARY) HYPERTENSION Status: Chronic (4) Obesity (BMI 30.0-34.9) Code(s): E66.9 - OBESITY, UNSPECIFIED Status: Chronic (5) Tobacco chew use Code(s): Z72.0 - TOBACCO USE Status: Chronic - Plan * Recurrent Pancreatitis- ? etiology- GI recommendations noted- Lab work has been ordered to check for auto-immune pacreatitis * He may require MRCP * HTN- will continue to hold Lisinopril, as this could cause Pancreatitis as well- will change to Amlodipine, and continue PRN medications.
[2018-01-29] MEDS ORDERED: Acetaminophen 325 MG TAB PO PRN (16:23)
--- NOTE | 2018-01-29 21:57 | PRG ---
DATE OF SERVICE: 01/29/2018 SUBJECTIVE: Mr. Bennett states his stomach pain is much better. He is very hungry. He did take a li ttle bit pain medicine this morning. He notes that he got anxious because he did not know what the p gulshan was today and his blood pressure was up and got more anxious. He has got some medicine for that. He is voiding well. No nausea or vomiting. PHYSICAL EXAMINATION: VITAL SIGNS: Temperature 97.9, afebrile overnight, pulse 62, and blood pressure 175/87. GENERAL: He looks noted to be in no distress. HEENT: Oropharynx is moist. LUNGS: Clear. HEART: Regular rhythm. ABDOMEN: Soft and nontender, without rebound or guarding. EXTREMITIES: No edema. LABORATORY STUDIES: White count is down from 13.5 to 9.6. Hemoglobin is down from 15.8 to 14.4, nkechi telets 199. BUN and creatinine are 10 and 0.7. AST and ALT are 38 and 60 are checked again at 10:00 this morning 33 and 59. Lipase is 22, down from 83. ASSESSMENT: Pancreatitis. Etiology is not clear. This could be biliary although he had no gallston es. His previous admission, his LFTs were all normal, differential diagnosis would include microlith iasis some type of ampullary or pancreatic duct abnormality or reaction to his AGUSTO inhibitor, which w as started a month ago. RECOMMENDATIONS: 1. AGUSTO inhibitor. 2. Clear liquids. 3. Reevaluate labs in the morning very reasonable to consider EUS in the outpatient setting or even empiric cholecystectomy.
[2018-01-30] MEDS: Sodium Chloride 0.9% 1,000 ML IV SCH ×2 (03:58→10:44)
[2018-01-30 06:23] LABS: ALT (SGPT) 47 U/L (8-55); AST (SGOT) 26 U/L (5-34); Albumin 3.8 g/dL (3.5-5.0); Alkaline Phosphatase 146 U/L (40-150); Anion Gap 12 mmol/L (10-20); BUN (Urea Nitrogen) 8 mg/dL (8.4-25.7); Bilirubin, Direct 0.3 mg/dL (0.1-0.3); Bilirubin, Total 0.8 mg/dL (0.2-1.2); Calc. Creatinine Clearance 163 mL/min (70-130); Calcium 9.2 mg/dL (7.8-10.44); Carbon Dioxide 23 mmol/L (22-29); Chloride 108 mmol/L (98-107); Estimated GFR-MDRD Greater than 90; Glucose 84 mg/dL (70-105); Lipase 15 U/L (8-78); Potassium 3.7 mmol/L (3.5-5.1); Protein, Total 6.4 g/dL (6.0-8.3); Sodium 139 mmol/L (136-145)
[2018-01-30 08:02] VITALS: BP 165/82
[2018-01-30] MEDS: Enoxaparin Sodium 40 MG/0.4 ML SYRINGE SC SCH (08:50)
[2018-01-30] MEDS ORDERED: Amlodipine 5 MG TAB PO SCH (09:00)
[2018-01-30 09:52] VITALS: TEMP 98
[2018-01-30 12:43] LABS: ANA Symphony (Qualitative) Negative (Negative); dsDNA IgG Antibody 0.5 IU/mL (<10 Negative)
[2018-01-31 06:16] LABS: IgG Subclass 1 338 mg/dL (248-810); IgG Subclass 2 288 mg/dL (130-555); IgG Subclass 3 54 mg/dL (15-102); IgG Subclass 4 15 mg/dL (2-96); Immunoglobulin - G (Sendout) 696 mg/dL (700-1600)
== END 2018-01-30 16:42 | disposition home or self-care (01) | DRG 440 ==
LOC: ERS 00:16 → OBSVTOIN 06:24 → 2SW 06:24 → ONC 19:11
PROVIDERS: ADMIT Internal Medicine; ATTEND Internal Medicine
DX: K85.90 Acute pancreatitis without necrosis or infection, unspecified (principal); I10 Essential (primary) hypertension; E78.00 Pure hypercholesterolemia, unspecified
CPT/HCPCS: 36415; 71045; 76705; 80048; 80053; 80076; 81003; 81015; 82553; 82787; 83690; 84484; 85025; 86038; 86225; 93005; 94760; 96361; 96374; 96375; J0360; J1650; J2270; J2765; J3010

== ENCOUNTER 2019-02-26 21:31 | Observation (INO) | payer OTHER ==
[2019-02-26 21:55] LABS: #Basophils 0.1 thou/uL (0.0-0.2); #Eosinphils 0.1 thou/uL (0.0-0.7); #Lymphocytes 3.4 thou/uL (1.20-3.40); #Monocytes 0.6 thou/uL (0.11-0.59); %Basophils 0.7 % (0.0-1.0); %Eosinophils 1.4 % (0.0-10.0); %Lymphocytes 33.3 % (21.0-51.0); %Monocytes 5.6 % (0.0-10.0); Mean Corpuscular HGB CONC 32.9 g/dL (32.0-36.0); Mean Corpuscular Hemoglobin 29.9 pg (27.0-31.0); Mean Corpuscular Volume 90.7 fL (78.0-98.0); Mean Platelet Volume 9.3 fL (7.4-10.4); Platelet Count 204 thou/uL (130-400); RBC Distribution Width 12.7 % (11.5-14.5); Red Blood Cell (RBC) Count 5.01 mill/uL (4.70-6.10); White Blood Cell (WBC) Count 10.1 thou/uL (4.8-10.8)
--- NOTE | 2019-02-26 22:03 | RAD ---
XR Chest 1 View Portable History: Chest pain Comparison: Radiograph January 2018 Findings: Mild increased pericardial fat. Lungs are clear. No pneumothorax. No effusion. No acute oss eous abnormality. Impression: No acute intrathoracic abnormality.
[2019-02-26 22:16] LABS: ALT (SGPT) 34 U/L (8-55); AST (SGOT) 26 U/L (5-34); Albumin 4.5 g/dL (3.5-5.0); Alkaline Phosphatase 117 U/L (40-150); Anion Gap 10 mmol/L (10-20); BUN (Urea Nitrogen) 21 mg/dL (8.4-25.7); Bilirubin, Total 0.5 mg/dL (0.2-1.2); Calc. Creatinine Clearance 0 mL/min (70-130); Calcium 9.4 mg/dL (7.8-10.44); Carbon Dioxide 27 mmol/L (22-29); Chloride 104 mmol/L (98-107); Estimated GFR-MDRD 72; Globulin 2.5 g/dL (2.4-3.5); Glucose 83 mg/dL (70-105); Potassium 3.8 mmol/L (3.5-5.1); Sodium 137 mmol/L (136-145)
[2019-02-26] MEDS ORDERED: Nitroglycerin 2% Ointment 1 INCH/1 GM Packet ONE (22:24)
[2019-02-26] MEDS ORDERED: Nitroglycerin 0.4 MG TAB 1 EACH ONE (22:24)
[2019-02-26] MEDS ORDERED: Aspirin Chewable 81 MG TAB ONE (22:24)
[2019-02-26] MEDS ORDERED: Morphine 4 MG/ML VIAL ONE (22:56)
--- NOTE | 2019-02-27 00:01 | PDOC.FPRHP ---
- History of Present Illness Chief Complaint: Chest pain History of Present Illness: 58yo male presents complaining of intermittent CP for the last several days. Pt states the pain comes and goes w/ no exacerbating or relieving factors. It is left sided radiating to his central chest and is described as squeezing and sometimes stabbing in nature. Pt states it is hard to take a deep breath during these episodes but he does not feel short of breath. Pt denies any diaphoresis, nausea, vomiting, or dizziness w/ these episodes. Notes that he experiences shortness of breath at night when laying down and has had to sleep in a recliner recently. Also noted that his legs were very swollen a few days ago but that has since resolved. Pt has a history of HTN and HLD which is treated but states he has not taken his rx for this for the past few days because the pain had him concerned. Pt denies any recent illness. Does dip tobacco products. No FHx of heart disease. No previous stress or echo that he can recall. ED Course: CXR, EKG, initial trop all normal. CBC and CMP unremarkable. Neg lipase. - Allergies/Adverse Reactions Allergies Allergy/AdvReac Type Severity Reaction Status Date / Time Penicillins Allergy Verified 01/20/18 05:58 - Home Medications Medication Instructions Recorded Confirmed Type Atorvastatin Calcium 20 mg PO QPM 01/20/18 02/27/19 History Amlodipine [Norvasc] 5 mg PO DAILY #30 tab 01/30/18 02/27/19 Rx - History PMHx: HTN, HLD, pancreatitis PSHx: Knee surgery x4 FHx: Mother: of breast cancer. Brother: Pre-diabetes Social: Dip .5-1 can per day, social drinker 1-5, remote cocaine use - Review of Systems General: reports: weight/appetite/sleep changes. denies: fever/chills Eyes: denies: vision changes ENT: denies: nasal congestion, rhinorrhea Respiratory: reports: congestion. denies: cough, shortness of breath Cardiovascular: reports: chest pain, edema, paroxysmal nocturnal dyspnea, orthopnea. denies: palpitation Gastrointestinal: denies: nausea, vomiting, diarrhea, constipation, abdominal pain Genitourinary: denies: incontinence, dysuria Skin: denies: rashes, lesions Musculoskeletal: reports: pain (Right knee chronic). denies: swelling Neurological: denies: syncope, weakness - Vital signs BP: 178/100, Pulse: 59, Resp: 20, Temp: 98.1 (Oral), O2 sat: 98 on Room Air - Physical Exam Constitutional: NAD, awake, alert and oriented, well developed HEENT: normocephalic and atraumatic, EOMI, no scleral icterus Neck: supple, FROM, no JVD Chest: no-tender to palpation Heart: RRR, normal S1/S2, no murmurs/rubs/gallops, pulses present, no edema Lungs: CTAB, no respiratory distress, good air movement, no rales/rhonchi, no wheezing Abdomen: soft, non-tender, bowel sounds present Musculoskeletal: normal structure, normal tone Neurological: no focal deficit Skin: no rash/lesions, capillary refill <2 seconds, no jaundice Heme/Lymphatic: no unusual bruising or bleeding, no purpura Psychiatric: normal mood and affect, good judgment and insight, intact recent and remote memory FMR H&P: Results - Labs Result Diagrams: 02/26/19 21:45 02/26/19 21:45 Lab results: WBC 10.1 thou/uL (4.8-10.8) 02/26/19 21:45 Hgb 15.0 g/dL (14.0-18.0) 02/26/19 21:45 Hct 45.5 % (42.0-52.0) 02/26/19 21:45 MCV 90.7 fL (78.0-98.0) 02/26/19 21:45 Plt Count 204 thou/uL (130-400) 02/26/19 21:45 Neutrophils % 59.0 % (42.0-75.0) 02/26/19 21:45 Sodium 137 mmol/L (136-145) 02/26/19 21:45 Potassium 3.8 mmol/L (3.5-5.1) 02/26/19 21:45 Chloride 104 mmol/L (98-107) 02/26/19 21:45 Carbon Dioxide 27 mmol/L (22-29) 02/26/19 21:45 BUN 21 mg/dL (8.4-25.7) 02/26/19 21:45 Creatinine 1.06 mg/dL (0.7-1.3) 02/26/19 21:45 Glucose 83 mg/dL (70-105) 02/26/19 21:45 Calcium 9.4 mg/dL (7.8-10.44) 02/26/19 21:45 Total Bilirubin 0.5 mg/dL (0.2-1.2) 02/26/19 21:45 AST 26 U/L (5-34) 02/26/19 21:45 ALT 34 U/L (8-55) 02/26/19 21:45 Alkaline Phosphatase 117 U/L (40-150) 02/26/19 21:45 Serum Total Protein 7.0 g/dL (6.0-8.3) 02/26/19 21:45 Albumin 4.5 g/dL (3.5-5.0) 02/26/19 21:45 Lipase 26 U/L (8-78) 02/26/19 21:45 - EKG Interpretation EKG: Sinus maribel at 59 bmp, no ST or T wave changes - Radiology Interpretation Chest x-ray Status: report reviewed by me (No acute intrathoracic abnormality) FMR H&P: A/P - Problem List (1) Chest pain Current Visit: Yes Status: Acute Code(s): R07.9 - CHEST PAIN, UNSPECIFIED (2) Dyslipidemia Current Visit: No Status: Chronic Code(s): E78.5 - HYPERLIPIDEMIA, UNSPECIFIED (3) Hypertension Current Visit: No Status: Chronic Code(s): I10 - ESSENTIAL (PRIMARY) HYPERTENSION (4) Obesity (BMI 30.0-34.9) Current Visit: No Status: Chronic Code(s): E66.9 - OBESITY, UNSPECIFIED (5) Tobacco chew use Current Visit: No Status: Chronic Code(s): Z72.0 - TOBACCO USE - Plan Chest Pain R/O ACS vs MSK vs GERD vs CHF PMHx: HTN, HLD Left sided, non exertional, squeezing/sharp, intermittent, orthopnea, currently asymptomatic -ED: mg nitro x_; EKG: Sinus maribel, no ST changes : CXR: no acute findings -Heart score: 4 -Initial troponin: neg, trending -Repeat EKG if CP returns, prn nitro -TTE and pharm cardiolite stress test ordered -NPO at midnight/for procedure -Risk stratify: FLP, HbA1C Hypertension controlled -Resume home Rx: amlodipine -PRN hydralazine for hypertensive urgency, SBP > 180 Hyperlipidemia -Resume home Rx: Atorvastatin increase from 20 to 40 -Ordered FLP: Disp: Admit tele obs Diet: NPO Code Status: Full VTE: SCD FMR H&P: Upper Level - Pertinent history 58 y/o M PMHx HTN, HLD, pancreatitis presents to the ED complaining of chest pain. He reports the chest pain has been coming and going the past couple of days. Whenever he gets it, it feels like a sharp pain that makes it hard for him to take a deep breath. He denies any inciting factors or any alleviating factors, it just goes away with time. He does report it has been hard for him to lie flat due to SOB and he wakes up at night feeling like he cant breathe if he is flat. He sleeps on 3 pillows usually, but lately has been sleeping in a recliner. He reports a mild cough that comes and goes as well as recent nasal congestion. He had bad foot swelling a couple of days ago, but that has resolved. Denies any diaphoresis, nausea. He reports he has not been taking his statin or amlodipine since . - Pertinent findings Vitals: BP 185/93, HR 61, RR 18, Temp 98.2, O2 97% on RA. PE: Gen alert, oriented, NAD HEENT MMM CV RRR, no murmurs, trace edema in bilateral ankles, no tenderness to palpation Resp CTAB, no wheezes Labs: Trop < 0.010 CXR: no acute findings - Plan Date/Time: 02/26/19 1387 I, Leonela Collazo MD, PGY-3, have evaluated this patient and agree with findings/ plan as outlined by purchasing internship resident. Pertinent changes/additions are listed here. Chest Pain concerning for angina Pt with risk factors including HTN, HLD, morbid obesity. Trop neg x1. s/p morphine, aspirin, and nitro in the ED. Heart score 4 -Obs on tele -NPO -Stress in AM -Echo -Risk stratify with FLP -Atorvastatin -Aspirin -Trend trops -Nitro prn -Repeat EKG for any new or worsening chest pain HTN Pt with BP 180s systolic on presentation. He has not been taking his amlodipine the past couple of days. -Will restart amlodipine -Pt presentation concerning for CHF vs TOMMY, will get a BNP and echo and will recommend outpatient sleep study HLD -Check FLP -Increase atorvastatin to 40mg for high intensity dose Substance abuse Former drug abuse, Used cocaine 40 years ago. Currently dips -Trial Management Associate on cessation Dispo: obs on tele Code status: Full
[2019-02-27] MEDS ORDERED: Nitroglycerin 0.4 MG TAB (25 Tab Bottle) PO PRN (00:05)
[2019-02-27] MEDS ORDERED: Nicotine 14 MG PATCH TD PRN (00:05)
[2019-02-27] MEDS ORDERED: Acetaminophen 325 MG TAB PO PRN (00:05)
[2019-02-27] MEDS ORDERED: Calcium Carbonate 500 MG ChewTAB PO PRN (00:05)
[2019-02-27 00:54] VITALS: BMI 34.6
[2019-02-27] MEDS ORDERED: Ondansetron ODT 4 MG TAB SL PRN (00:59)
[2019-02-27] MEDS ORDERED: Ondansetron PF 4 MG/2 ML Vial IVP PRN (00:59)
[2019-02-27 01:06] LABS: Troponin I Less than 0.010 ng/mL (< 0.028)
[2019-02-27] MEDS ORDERED: Lidocaine 2% Viscous Solution 20 ML, Aluminum & Magnesium Hydroxide 30 ML, Donnatal Eli... SSW SCH (01:30)
[2019-02-27] MEDS ORDERED: Morphine 4 MG/ML VIAL SLOW IVP SCH (03:00)
[2019-02-27 04:21] LABS: Hemoglobin A1c 5.4 % (4.0-6.0)
[2019-02-27 04:26] LABS: Cardiac Risk 4.7 (Less than 4.5)
[2019-02-27 04:31] LABS: Troponin I Less than 0.010 ng/mL (< 0.028)
[2019-02-27] MEDS ORDERED: Nitroglycerin 2% Ointment 1 INCH/1 GM Packet TOP SCH (06:00)
--- NOTE | 2019-02-27 06:25 | PDOC.FM ---
- Subjective Subjective: Patient doing well this morning, not currently having cp. Reports that the deep substernal chest pain he has been having makes him feel like he wants to lean forward, as it radiates to his back. However leaning forward does not alleviate the pain. Lipase wnl. He also endorses recent orthopnea symptoms and swelling that he reports have improved today. Per report he had nitro paste on when chest pain occurred, and he refused SL nitro so was given a GI cocktail, which did not alleviate his pain. He was then given morphine which did alleviate the pain. He is agreeable to the plan for echo and stress test today. - Objective Vital Signs & Weight: Vital Signs (12 hours) Temp Pulse Resp BP BP Pulse Ox 02/27/19 03:07 97.8 F 57 L 16 115/68 95 02/27/19 00:41 97.6 F 59 L 20 131/63 96 Weight Weight 112.627 kg I&O: 02/25/19 02/26/19 02/27/19 06:59 06:59 06:59 Intake Total 1 Balance 1 Result Diagrams: 02/26/19 21:45 02/26/19 21:45 EKG Reviewed by me: Yes (Sinus bradycardia) Phys Exam - Physical Examination Constitutional: NAD HEENT: moist MMs, sclera anicteric Neck: supple, full ROM Respiratory: no wheezing, clear to auscultation bilateral Bradycardia, regular rhythm Gastrointestinal: soft, non-tender Musculoskeletal: no edema, pulses present Neurological: non-focal, moves all 4 limbs Lymphatic: no nodes Psychiatric: normal affect, A&O x 3 Skin: no rash, normal turgor Dx/Plan (1) Chest pain Code(s): R07.9 - CHEST PAIN, UNSPECIFIED Status: Acute (2) Dyslipidemia Code(s): E78.5 - HYPERLIPIDEMIA, UNSPECIFIED Status: Chronic (3) Hypertension Code(s): I10 - ESSENTIAL (PRIMARY) HYPERTENSION Status: Chronic (4) Obesity (BMI 30.0-34.9) Code(s): E66.9 - OBESITY, UNSPECIFIED Status: Chronic (5) Tobacco chew use Code(s): Z72.0 - TOBACCO USE Status: Chronic - Plan Plan: 58M with PMHx of HTN, HLD on tele obs for cp r/o #Typical Chest pain Left sided, non exertional, squeezing/sharp, intermittent, orthopnea, reocurred after admission and was refractory to GI cocktail but treated with morphine -ED: nitro; EKG: Sinus maribel, no ST changes : CXR: no acute findings -Heart score: 4 -Troponin neg x3 -Repeat EKG if CP returns, prn nitro -TTE and pharm cardiolite stress test today, f/u results -NPO for procedure -BNP 13.6 -Lipase 26, wnl #Hypertension controlled -Resume home Rx: amlodipine -PRN hydralazine for hypertensive urgency, SBP > 180 #Hyperlipidemia -Continue home meds: Atorvastatin increase from 20 to 40 -Ordered FLP: total chol 174, ldl 108, hdl 37, triglycerides 146 -A1C 5.4% #Tobacco chew use -encouraged to stop Disp: tele obs for stress test and echo today Diet: NPO Code Status: Full VTE: SCD
[2019-02-27] MEDS: Amlodipine 5 MG TAB PO SCH (09:05)
[2019-02-27] MEDS: Aspirin 81 mg Enteric Coated Tablet PO SCH (09:05)
--- NOTE | 2019-02-27 12:00 | HP ---
I have examined Mr. Watts. I have discussed the case with Dr. Deion Polanco and agree with his assessment and plan. HISTORY OF PRESENT ILLNESS: Mr. Watts is a very pleasant, obese, 58-year-old man, who has been having intermittent chest pain for the last several days. It does not seem to be related to exercise. It is left-sided and radiates to his central chest and described as squeezing and sometimes stabbing in nature. This is not associated with diaphoresis, shortness of breath, or nausea. He presented to our ER and has been admitted for further evaluation given that his heart score was 4. PHYSICAL EXAMINATION: GENERAL: Mr. Watts is pleasant, awake, alert. VITAL SIGNS: His blood pressure is 160/97, his pulse rate is 58 and regular, respirations 20, he is afebrile, and his room air O2 saturation is 98%. EAR, NOSE, AND THROAT: No erythema or exudate. NECK: Supple. No JVD. CARDIAC: Heart rhythm regular. S4 gallop. No murmur or rub noted. LUNGS: Diminished, but clear. No rales, rhonchi, or wheezes. No distress. ABDOMEN: Obese, but flat, soft, and nontender. NEUROLOGIC: No focal deficits. LABORATORY DATA: CBC; white count 10,100, hemoglobin 15, and hematocrit 45.5. Chemistries; his troponins are all less than 0.01. His BMP shows a sodium of 137, potassium 3.8, chloride 104, bicarb 27, BUN 21, and creatinine 1.06. His liver enzymes are normal. IMAGING STUDIES: His EKG shows no acute ischemic changes. ASSESSMENT: Chest pain in a patient with a moderate risk factor analysis. PLAN: The patient will be admitted for a stress Myoview. Of course, if this is positive, we will consult Cardiology for catheterization. Job ID: [id number]
--- NOTE | 2019-02-27 13:00 | NM ---
Radionucleotide stress and rest myocardial perfusion scan with SPECT imaging Left ventricular wall motion evaluation and ejection fraction HISTORY: Chest pain. FINDINGS: Adenosine protocol. Homogeneous uptake of radiotracer throughout the left ventricular myoca rdium on the stress and rest images. No focal perfusion defect or reversibility. Patient was unable to perform CT correction imaging. QGS analysis of gated SPECT images shows no focal wall motion abnormalities. Ejection fraction calcul ated at 56%. IMPRESSION: Normal myocardial perfusion scan. Normal LVEF.
[2019-02-27] MEDS ORDERED: Regadenoson 0.4 MG/5 ML SYRINGE ONE (16:54)
[2019-02-27] MEDS ORDERED: Atorvastatin Calcium 40 MG TAB PO SCH (21:00)
[2019-02-28 04:19] VITALS: TEMP 97.6
--- NOTE | 2019-02-28 05:18 | PDOC.FM ---
- Subjective Subjective: Normal Echo and stress test yesterday. Patient was monitored overnight for bradycardia, sinus 40s-50s overnight. Patient doing well. Asymptomatic bardycardia. Denies every being told he has a slow heart rate, although he mentioned that every time he does a self test it says his pulse is low. Denies any occurrences of cp or sob overnight. - Objective Vital Signs & Weight: Vital Signs (12 hours) Temp Pulse Resp BP Pulse Ox 02/28/19 04:05 97.6 F 56 L 14 144/71 H 96 02/27/19 23:38 98.2 F 57 L 23 H 148/71 H 97 02/27/19 20:00 98.1 F 57 L 17 157/85 H 97 Weight Weight 112.627 kg I&O: 02/26/19 02/27/19 02/28/19 06:59 06:59 06:59 Intake Total 1 600 Balance 1 600 Result Diagrams: 02/26/19 21:45 02/26/19 21:45 EKG Reviewed by me: Yes (sinus maribel, 40s-50s) Phys Exam - Physical Examination Constitutional: NAD HEENT: moist MMs, sclera anicteric Neck: supple, full ROM Respiratory: no wheezing, clear to auscultation bilateral Cardiovascular: no significant murmur Bradycardia Gastrointestinal: soft, non-tender Musculoskeletal: no edema, pulses present Neurological: non-focal, moves all 4 limbs Lymphatic: no nodes Psychiatric: normal affect, A&O x 3 Skin: no rash, normal turgor Dx/Plan (1) Chest pain Code(s): R07.9 - CHEST PAIN, UNSPECIFIED Status: Acute (2) Dyslipidemia Code(s): E78.5 - HYPERLIPIDEMIA, UNSPECIFIED Status: Chronic (3) Hypertension Code(s): I10 - ESSENTIAL (PRIMARY) HYPERTENSION Status: Chronic (4) Obesity (BMI 30.0-34.9) Code(s): E66.9 - OBESITY, UNSPECIFIED Status: Chronic (5) Tobacco chew use Code(s): Z72.0 - TOBACCO USE Status: Chronic - Plan Plan: 58M with PMHx of HTN, HLD on tele obs for cp r/o #Typical Chest pain Left sided, non exertional, squeezing/sharp, intermittent, orthopnea, reocurred after admission and was refractory to GI cocktail but treated with morphine -ED: nitro; EKG: Sinus maribel, no ST changes : CXR: no acute findings -Heart score: 4 -Troponin neg x3 -TTE: Normal left ventricular function, EF 55-60%, mild pulmonary regurgitation -pharm cardiolite stress test:normal myocardial perfusion, normal LVEF -Tele monitoring: rate of 50s overnight; patient asymptomatic -BNP 13.6 -Lipase 26, wnl #Hypertension controlled -Resume home Rx: amlodipine -PRN hydralazine for hypertensive urgency, SBP > 180 #Hyperlipidemia -Continue home meds: Atorvastatin increase from 20 to 40 -Ordered FLP: total chol 174, ldl 108, hdl 37, triglycerides 146 -A1C 5.4% #Tobacco chew use -encouraged to stop Disp: anticipate d/c today with f/u with pcp and possible outpatient cardiology Diet: NPO Code Status: Full VTE: SCD
[2019-02-28 08:50] VITALS: BP 120/60
[2019-02-28] MEDS: Aspirin 81 mg Enteric Coated Tablet PO SCH (09:40)
[2019-02-28] MEDS: Amlodipine 5 MG TAB PO SCH (09:40)
--- NOTE | 2019-02-28 12:07 | PRG ---
DATE OF SERVICE: 02/28/2019 Mr. Watts had his stress Myoview yesterday and it was negative for reversible ischemia. He will therefore be discharged to follow up with his PCP. Job ID: [id number]
--- NOTE | 2019-03-01 11:39 | DIS ---
DATE OF ADMISSION: 02/27/2019 DATE OF DISCHARGE: 02/28/2019 ADMITTING RESIDENT: Deion Polanco DO ADMITTING ATTENDING: Maria T Quesada MD DISCHARGE RESIDENT: Emily Weller MD DISCHARGE ATTENDING: Tino Faust MD CONSULTS: None. IMAGIN. Chest x-ray: No acute intrathoracic processes. 2. Echo: Left ventricular size is normal, EF 55% to 60%. PROCEDURES: Radionucleotide stress and rest myocardial perfusion scan with SPECT imaging: Normal myocardial perfusion scan. Normal LVEF. PRIMARY DIAGNOSIS: Atypical chest pain, acute coronary syndrome rule out. SECONDARY DIAGNOSES: Hypertension, hyperlipidemia, tobacco chew use. DISCHARGE MEDICATIONS: 1. Amlodipine 5 mg p.o. daily. 2. ASA 81 mg p.o. daily. 3. Atorvastatin 20 mg p.o. q.p.m. DISCONTINUED MEDICATIONS: 1. Nitroglycerin paste. 2. GI cocktail; lidocaine 2% viscous solution 20 mL, aluminum and magnesium hydroxide 30 mL, elixir 32.4 mg. 3. Morphine 4 mg. HISTORY OF PRESENT ILLNESS/HOSPITAL COURSE: The patient was put on observation tele after presented to hospital with intermittent sharp substernal chest pain for the last few days that was not alleviated by anything. His chest x-ray was negative , troponin negative x3, CBC and CMP were unremarkable, lipase within normal limits. His EKG showed no ST or T-wave changes, although it did show bradycardia in the 50s. A chest echo and stress test were both ordered and were negative as above. He was risk stratified, with a normal BNP of 13.6, total cholesterol of 174, LDL of 108 , HDL of 37, and triglycerides of 146. His A1c was 5.4. Due to his bradycardia, he was monitored for one additional night on tele, where at times, his rate would drop into the 40s. The patient denied any symptoms and was discharged in stable condition with recommendations to follow up with his primary care provider and to possibly seek evaluation from an outpatient tour leader regarding his bradycardia. DISPOSITION: Stable. DISCHARGE INSTRUCTIONS: 1. Location: Home. 2. Diet: Heart healthy. 3. Activity: As tolerated. 4. Followup: With PCP within one week, recommended to seek evaluation from outpatient Cardiology. Job ID: [id number] [facility]
== END 2019-02-28 11:00 | disposition home or self-care (01) ==
LOC: ERS 21:31 → 2SW 02-27 00:45
PROVIDERS: ADMIT Family Medicine; ATTEND Family Medicine
DX: R07.89 Other chest pain (principal); I10 Essential (primary) hypertension; E78.5 Hyperlipidemia, unspecified; F17.220 Nicotine dependence, chewing tobacco, uncomplicated; F14.11 Cocaine abuse, in remission; E66.9 Obesity, unspecified; Z68.34 Body mass index [BMI] 34.0-34.9, adult
CPT/HCPCS: 36415; 71045; 78452; 80053; 80061; 83036; 83690; 83880; 84484; 85025; 93005; 93010; 93017; 93306; 96374; 96376; 99406; A9500; G0378; J2270; J2785

== ENCOUNTER 2022-07-26 13:23 | Outpatient (CLI) | payer OTHER | END 2022-07-26 13:24 | disposition home or self-care (01) | LOC: ULT 13:23 | PROVIDERS: ATTEND Radiology Radiation Oncology | DX: C49.9 Malignant neoplasm of connective and soft tissue, unspecified (principal); I08.1 Rheumatic disorders of both mitral and tricuspid valves | CPT/HCPCS: 80053; 93306 ==

== ENCOUNTER 2022-07-28 09:36 | Day surgery (SDC) | payer OTHER ==
[2022-07-27 10:02] VITALS: BMI 34.2
[2022-07-28] MEDS ORDERED: Acetaminophen 500 MG TAB ONE (11:59)
[2022-07-28] MEDS ORDERED: Bupivacaine HCl 0.5%/Epinephrine 1:200,000/PF 30 ml Vial ONE (12:26)
[2022-07-28] MEDS ORDERED: Lidocaine 2% PF 5 ML VIAL ONE (12:26)
[2022-07-28] MEDS ORDERED: Midazolam HCl 2 mg/2 ml Vial ONE (13:50)
[2022-07-28] MEDS ORDERED: Propofol 500 MG/50 ML VIAL ONE (13:51)
[2022-07-28] MEDS ORDERED: fentaNYL PF 100 MCG/2 ML SYRINGE ONE (13:51)
[2022-07-28] MEDS ORDERED: CEFAZOLIN 2 GM VIAL ONE (13:58)
[2022-07-28] MEDS ORDERED: Sodium Chloride 0.9% 100 ML ONE (13:58)
[2022-07-28] MEDS ORDERED: Fentanyl 100 MCG/2 ML VIAL ONE (15:08)
== END 2022-07-28 16:22 | disposition home or self-care (01) ==
LOC: SDC 09:36
PROVIDERS: ATTEND Specialist
PROC: 02HV33Z Insertion of Infusion Device into Superior Vena Cava, Percutaneous Approach (ICD-10-PCS; principal; 2022-07-28)
PROC: 0JH60WZ Insertion of Totally Implantable Vascular Access Device into Chest Subcutaneous Tissue and Fascia, Open Approach (ICD-10-PCS; principal; 2022-07-28)
DX: C49.22 Malignant neoplasm of connective and soft tissue of left lower limb, including hip (principal); C78.02 Secondary malignant neoplasm of left lung; E78.00 Pure hypercholesterolemia, unspecified; I11.9 Hypertensive heart disease without heart failure; Z79.82 Long term (current) use of aspirin; Z79.899 Other long term (current) drug therapy; Z88.0 Allergy status to penicillin
CPT/HCPCS: 71045; C1788; J1642; J2001; J2250; J2704; J3010; J3490

== ENCOUNTER 2022-08-08 08:03 | Inpatient (IN) | payer OTHER ==
[2022-08-08] MEDS ORDERED: Morphine 4 MG/ML VIAL ONE ×4 (09:00→22:05)
[2022-08-08 09:46] LABS: #Eosinphils 0.1 thou/uL (0.0-0.7); #Lymphocytes 0.8 thou/uL (1.20-3.40); #Monocytes 0.6 thou/uL (0.11-0.59); #Neutrophils 4.7 thou/uL (1.40-6.50); %Basophils 0.2 % (0.0-1.0); %Eosinophils 1.4 % (0.0-10.0); %Lymphocytes 13.5 % (21.0-51.0); %Monocytes 9.2 % (0.0-10.0); %Neutrophils 75.7 % (42.0-75.0); Hemoglobin 12.7 g/dL (14.0-18.0); Mean Corpuscular HGB CONC 33.3 g/dL (32.0-36.0); Mean Corpuscular Hemoglobin 28.5 pg (27.0-31.0); Mean Corpuscular Volume 85.5 fl (78.0-98.0); Mean Platelet Volume 9.2 fL (7.4-10.4); Platelet Count 200 10x3/uL (130-400); RBC Distribution Width 15.3 % (11.5-14.5); Red Blood Cell (RBC) Count 4.44 mill/uL (4.70-6.10); White Blood Cell (WBC) Count 6.2 10x3/uL (4.8-10.8)
[2022-08-08 10:01] LABS: ALT (SGPT) 13 U/L (8-55); AST (SGOT) 22 U/L (5-34); Albumin 3.9 g/dL (3.4-4.8); Alkaline Phosphatase 161 U/L (40-110); Anion Gap 14 mmol/L (10-20); BUN (Urea Nitrogen) 13 mg/dL (8.4-25.7); Bilirubin, Total 0.4 mg/dL (0.2-1.2); Calc. Creatinine Clearance 0 mL/min (70-130); Calcium 9.4 mg/dL (7.8-10.44); Carbon Dioxide 22 mmol/L (23-31); Chloride 107 mmol/L (98-107); Estimated GFR 101; Globulin 2.8 g/dL (2.4-3.5); Glucose 97 mg/dL (80-115); Potassium 3.2 mmol/L (3.5-5.1); Protein, Total 6.7 g/dL (5.8-8.1); Sodium 140 mmol/L (136-145)
[2022-08-08] MEDS ORDERED: Potassium Chloride 20 MEQ TAB ONE (11:54)
[2022-08-08] MEDS ORDERED: Acetaminophen 325 MG TAB PO PRN (12:33)
[2022-08-08] MEDS ORDERED: Ondansetron ODT 4 MG TAB PO PRN (12:33)
[2022-08-08] MEDS ORDERED: Ondansetron PF 4 MG/2 ML Vial IVP PRN (12:33)
[2022-08-08] MEDS ORDERED: oxyCODONE/Acetaminophen 5 mg/325 mg Tablet PO PRN (12:35)
[2022-08-08] MEDS ORDERED: Morphine 2 MG/ML VIAL SLOW IVP PRN (12:38)
[2022-08-08] MEDS ORDERED: OXYCODONE HCL 10 MG PO PRN (12:50)
[2022-08-08] MEDS ORDERED: Gabapentin 300 MG CAP PO SCH (12:51)
[2022-08-08] MEDS ORDERED: Amlodipine 10 MG TAB PO SCH (13:00)
[2022-08-08] MEDS ORDERED: Losartan 25 MG TAB PO SCH (13:15)
[2022-08-08] MEDS ORDERED: Electrolyte Replacement Protocol 1 EACH FS SCH (14:30)
[2022-08-08 14:38] LABS: Magnesium 1.7 mg/dL (1.6-2.6)
[2022-08-08 15:18] VITALS: BMI 34.1
[2022-08-08] MEDS: Sodium Chloride 0.9% 1,000 ML IV SCH (15:26)
[2022-08-08] MEDS ORDERED: Amlodipine 5 MG TAB ONE (16:51)
[2022-08-08] MEDS: Morphine 4 MG/ML VIAL SLOW IVP PRN ×2 (17:30→22:03)
[2022-08-08] MEDS: NS 0.9% w/ 40 MEQ KCL 1,000 ML IV SCH (17:56)
[2022-08-08] MEDS ORDERED: guaiFENesin 200 MG TAB PO PRN (18:29)
[2022-08-08] MEDS ORDERED: Benzonatate 100 MG CAP PO PRN (18:29)
[2022-08-08] MEDS: oxyCODONE 5 MG TAB PO PRN (20:23)
[2022-08-08] MEDS: Lidocaine 5% Patch TD SCH (20:24)
[2022-08-08] MEDS ORDERED: Enoxaparin 120 MG/0.8 ML SYRINGE SC SCH (21:00)
[2022-08-08] MEDS ORDERED: Magnesium 2 GM/50 ML(in water) 2 GM in Premix Bag 1 BAG IVPB SCH (21:30)
[2022-08-08] MEDS: Atorvastatin Calcium 20 MG TAB PO SCH (21:42)
[2022-08-08] MEDS: Gabapentin 300 MG CAP PO SCH (21:43)
[2022-08-09] MEDS: Cyclobenzaprine 10 MG TAB PO PRN ×3 (00:04→22:38)
[2022-08-09] MEDS: Oxymetazoline HCl 0.05% (30 ML BOT) NS SCH ×3 (01:11→21:03)
[2022-08-09] MEDS ORDERED: Cepastat Lozenges 1 LOZ PO PRN (01:51)
[2022-08-09] MEDS: Morphine 4 MG/ML VIAL SLOW IVP PRN ×5 (02:01→20:45)
[2022-08-09 02:22] LABS: SARS-CoV-2 NAA Rapid Test Not Detected (NotDetected)
[2022-08-09] MEDS ORDERED: MUCINEX INSTASOOTHE SPRY (115 ML BOT) PO PRN (03:23)
[2022-08-09] MEDS ORDERED: Guaifenesin DM 100-10/5 ML UDCUP PO PRN (03:36)
[2022-08-09] MEDS: oxyCODONE 5 MG TAB PO PRN ×4 (04:58→23:23)
[2022-08-09 04:59] LABS: Platelet Count 187 10x3/uL (130-400)
[2022-08-09] MEDS: NS 0.9% w/ 40 MEQ KCL 1,000 ML IV SCH ×2 (05:04→15:58)
[2022-08-09 05:16] LABS: #Monocytes 0.6 thou/uL (0.11-0.59); #Neutrophils 5.2 thou/uL (1.40-6.50); %Eosinophils 0.3 % (0.0-10.0); %Lymphocytes 13.9 % (21.0-51.0); %Neutrophils 76.8 % (42.0-75.0); Hemoglobin 10.7 g/dL (14.0-18.0); Mean Corpuscular HGB CONC 32.8 g/dL (32.0-36.0); Mean Corpuscular Hemoglobin 28.3 pg (27.0-31.0); Mean Corpuscular Volume 86.3 fl (78.0-98.0); Mean Platelet Volume 9.2 fL (7.4-10.4); RBC Distribution Width 15.4 % (11.5-14.5); White Blood Cell (WBC) Count 6.8 10x3/uL (4.8-10.8)
[2022-08-09 05:23] LABS: Anion Gap 14 mmol/L (10-20); BUN (Urea Nitrogen) 11 mg/dL (8.4-25.7); Calc. Creatinine Clearance 165 mL/min (70-130); Carbon Dioxide 19 mmol/L (23-31); Chloride 110 mmol/L (98-107); Potassium 3.8 mmol/L (3.5-5.1); Sodium 139 mmol/L (136-145)
[2022-08-09 05:24] LABS: Calcium 8.8 mg/dL (7.8-10.44); Estimated GFR 104; Glucose 106 mg/dL (80-115)
[2022-08-09] MEDS: Benzonatate 100 MG CAP PO PRN (06:24)
[2022-08-09] MEDS ORDERED: PALONOSETRON HCL 0.05 MG/ML 5 ML VIAL IVP SCH (06:30)
[2022-08-09] MEDS ORDERED: Magnesium 2 GM/50 ML(in water) 2 GM in Premix Bag 1 BAG IVPB SCH (08:30)
[2022-08-09] MEDS ORDERED: Losartan 25 MG TAB PO SCH (09:00)
[2022-08-09] MEDS ORDERED: Amlodipine 10 MG TAB PO SCH (09:00)
[2022-08-09] MEDS: Gabapentin 300 MG CAP PO SCH ×3 (09:23→20:46)
[2022-08-09] MEDS: guaiFENesin/Codeine 200 mg/20 mg 10 ml Cup PO PRN ×3 (09:23→22:38)
[2022-08-09] MEDS: Amlodipine 10 MG TAB PO SCH (09:24)
[2022-08-09] MEDS: Losartan 25 MG TAB PO SCH (09:24)
[2022-08-09] MEDS: ALPRAZolam 0.5 MG TAB PO SCH (09:47)
[2022-08-09] MEDS: Pantoprazole 40 MG VIAL IVP SCH (09:47)
[2022-08-09] MEDS: Transdermal Patch Removal TOP SCH (11:34)
[2022-08-09] MEDS ORDERED: Iopamidol 370 76% 100 ML VIAL ONE (11:34)
[2022-08-09] MEDS: Dexamethasone 10 MG in Sodium Chloride 0.9% 50 ML IVPB SCH (13:09)
[2022-08-09] MEDS: SODIUM CHLORIDE 0.9% IVPB SCH ×4 (14:18→22:38)
[2022-08-09] MEDS: MESNA IVPB SCH ×3 (14:18→22:38)
[2022-08-09] MEDS: IFOSFAMIDE IVPB SCH (14:47)
[2022-08-09] MEDS: Sodium Chloride 0.9% 1,000 ML IV SCH (18:41)
[2022-08-09 19:48] LABS: Hemoglobin 10.2 g/dL (14.0-18.0); Platelet Count 189 10x3/uL (130-400)
[2022-08-09] MEDS: Atorvastatin Calcium 20 MG TAB PO SCH (20:46)
[2022-08-09] MEDS: Lidocaine 5% Patch TD SCH (20:46)
[2022-08-09] MEDS: DOXORUBICIN IVPB SCH (20:49)
[2022-08-10] MEDS: MESNA IVPB SCH ×4 (02:28→20:45)
[2022-08-10] MEDS: SODIUM CHLORIDE 0.9% IVPB SCH ×5 (02:28→22:21)
[2022-08-10] MEDS: Morphine 4 MG/ML VIAL SLOW IVP PRN ×5 (03:30→20:59)
[2022-08-10] MEDS: Benzonatate 100 MG CAP PO PRN (03:34)
[2022-08-10] MEDS: guaiFENesin/Codeine 200 mg/20 mg 10 ml Cup PO PRN ×2 (03:58→11:10)
[2022-08-10 05:54] LABS: #Lymphocytes 0.5 thou/uL (1.20-3.40); #Monocytes 0.4 thou/uL (0.11-0.59); #Neutrophils 6.9 thou/uL (1.40-6.50); %Eosinophils 0.1 % (0.0-10.0); %Lymphocytes 6.2 % (21.0-51.0); %Monocytes 4.9 % (0.0-10.0); %Neutrophils 88.8 % (42.0-75.0); Hemoglobin 9.5 g/dL (14.0-18.0); Mean Corpuscular HGB CONC 31.7 g/dL (32.0-36.0); Mean Corpuscular Hemoglobin 27.6 pg (27.0-31.0); Mean Corpuscular Volume 87.1 fl (78.0-98.0); Platelet Count 198 10x3/uL (130-400); RBC Distribution Width 15.4 % (11.5-14.5); Red Blood Cell (RBC) Count 3.45 mill/uL (4.70-6.10); White Blood Cell (WBC) Count 7.8 10x3/uL (4.8-10.8)
[2022-08-10] MEDS: oxyCODONE 5 MG TAB PO PRN ×2 (06:08→15:09)
[2022-08-10 06:23] LABS: Anion Gap 12 mmol/L (10-20); BUN (Urea Nitrogen) 13 mg/dL (8.4-25.7); Calc. Creatinine Clearance 154 mL/min (70-130); Calcium 8.9 mg/dL (7.8-10.44); Carbon Dioxide 21 mmol/L (23-31); Chloride 111 mmol/L (98-107); Estimated GFR 101; Glucose 148 mg/dL (80-115); Potassium 3.9 mmol/L (3.5-5.1); Sodium 140 mmol/L (136-145)
[2022-08-10] MEDS: Gabapentin 300 MG CAP PO SCH ×3 (08:51→21:01)
[2022-08-10] MEDS: Amlodipine 10 MG TAB PO SCH (08:54)
[2022-08-10] MEDS: ALPRAZolam 0.5 MG TAB PO SCH (08:54)
[2022-08-10] MEDS: Losartan 25 MG TAB PO SCH (08:54)
[2022-08-10] MEDS: Pantoprazole 40 MG VIAL IVP SCH (08:55)
[2022-08-10] MEDS: Oxymetazoline HCl 0.05% (30 ML BOT) NS SCH ×2 (09:04→21:02)
[2022-08-10] MEDS: Transdermal Patch Removal TOP SCH (10:27)
[2022-08-10] MEDS: Dexamethasone 10 MG in Sodium Chloride 0.9% 50 ML IVPB SCH (10:58)
[2022-08-10] MEDS: IFOSFAMIDE IVPB SCH (12:12)
[2022-08-10] MEDS ORDERED: Magnesium 2 GM/50 ML(in water) 2 GM in Premix Bag 1 BAG IVPB SCH (15:00)
[2022-08-10 15:29] LABS: Bilirubin Negative (Negative); Blood, Urine Negative (Negative); Clarity Clear (Clear); Glucose, Urine (Dipstick) 300 mg/dL (Negative); Ketone, Urine Greater than 150 mg/dL (Negative); Leukocyte Negative Leu/uL (Negative); Nitrite Negative (Negative); Protein, Urine (Dipstick) 20 mg/dL (Neg-Trace); Urobilinogen Normal mg/dL (Less than 2); pH, Urine 5.5 (5.0-9.0)
[2022-08-10] MEDS: Cyclobenzaprine 10 MG TAB PO PRN (16:22)
[2022-08-10] MEDS: Atorvastatin Calcium 20 MG TAB PO SCH (21:01)
[2022-08-10] MEDS: Lidocaine 5% Patch TD SCH (21:03)
[2022-08-10] MEDS: DOXORUBICIN IVPB SCH (22:21)
[2022-08-11] MEDS: oxyCODONE 5 MG TAB PO PRN ×3 (00:31→17:15)
[2022-08-11] MEDS: Benzonatate 100 MG CAP PO PRN ×3 (00:32→17:16)
[2022-08-11] MEDS: SODIUM CHLORIDE 0.9% IVPB SCH ×6 (00:43→23:36)
[2022-08-11] MEDS: MESNA IVPB SCH ×5 (00:43→22:31)
[2022-08-11] MEDS: Morphine 4 MG/ML VIAL SLOW IVP PRN ×5 (02:40→22:30)
[2022-08-11 05:38] LABS: #Lymphocytes 0.6 thou/uL (1.20-3.40); #Monocytes 0.9 thou/uL (0.11-0.59); #Neutrophils 10.5 thou/uL (1.40-6.50); %Lymphocytes 5.3 % (21.0-51.0); %Monocytes 7.1 % (0.0-10.0); %Neutrophils 87.6 % (42.0-75.0); Hemoglobin 8.9 g/dL (14.0-18.0); Mean Corpuscular HGB CONC 32.4 g/dL (32.0-36.0); Mean Corpuscular Hemoglobin 28.4 pg (27.0-31.0); Mean Corpuscular Volume 87.6 fl (78.0-98.0); Mean Platelet Volume 9.5 fL (7.4-10.4); Platelet Count 180 10x3/uL (130-400); RBC Distribution Width 15.5 % (11.5-14.5); Red Blood Cell (RBC) Count 3.14 mill/uL (4.70-6.10)
[2022-08-11 05:59] LABS: ALT (SGPT) 10 U/L (8-55); AST (SGOT) 14 U/L (5-34); Alkaline Phosphatase 119 U/L (40-110); Anion Gap 11 mmol/L (10-20); BUN (Urea Nitrogen) 21 mg/dL (8.4-25.7); Bilirubin, Total 0.4 mg/dL (0.2-1.2); Calc. Creatinine Clearance 156 mL/min (70-130); Calcium 8.9 mg/dL (7.8-10.44); Carbon Dioxide 21 mmol/L (23-31); Chloride 113 mmol/L (98-107); Estimated GFR 101; Globulin 2.4 g/dL (2.4-3.5); Glucose 125 mg/dL (80-115); Magnesium 2.2 mg/dL (1.6-2.6); Potassium 3.9 mmol/L (3.5-5.1); Protein, Total 5.4 g/dL (5.8-8.1); Sodium 141 mmol/L (136-145)
[2022-08-11 07:27] LABS: Bilirubin Negative (Negative); Blood, Urine Negative (Negative); Clarity Clear (Clear); Glucose, Urine (Dipstick) 500 mg/dL (Negative); Ketone, Urine Greater than 150 mg/dL (Negative); Leukocyte Negative Leu/uL (Negative); Nitrite Negative (Negative); Protein, Urine (Dipstick) 10 mg/dL (Neg-Trace); Specific Gravity, Urine 1.028 (1.002-1.036); Urobilinogen Normal mg/dL (Less than 2); pH, Urine 5.5 (5.0-9.0)
[2022-08-11] MEDS ORDERED: FLU VACC QS2022-23(6MOS UP)/PF 60 MCG/0.5 ML SYRINGE IM ONE (09:00)
[2022-08-11] MEDS: Losartan 25 MG TAB PO SCH (09:01)
[2022-08-11] MEDS: Gabapentin 300 MG CAP PO SCH ×3 (09:02→20:27)
[2022-08-11] MEDS: Oxymetazoline HCl 0.05% (30 ML BOT) NS SCH ×2 (09:04→20:25)
[2022-08-11] MEDS: Amlodipine 10 MG TAB PO SCH (09:04)
[2022-08-11] MEDS: ALPRAZolam 0.5 MG TAB PO SCH (09:04)
[2022-08-11] MEDS: Pantoprazole 40 MG VIAL IVP SCH (09:05)
[2022-08-11] MEDS: Transdermal Patch Removal TOP SCH (09:12)
[2022-08-11] MEDS: guaiFENesin/Codeine 200 mg/20 mg 10 ml Cup PO PRN ×2 (10:36→22:30)
[2022-08-11] MEDS: Dexamethasone 10 MG in Sodium Chloride 0.9% 50 ML IVPB SCH (11:20)
[2022-08-11] MEDS: IFOSFAMIDE IVPB SCH (12:19)
[2022-08-11] MEDS: Lidocaine 5% Patch TD SCH (20:24)
[2022-08-11] MEDS: Senokot S 8.6-50 MG TAB PO SCH (20:27)
[2022-08-11] MEDS: Atorvastatin Calcium 20 MG TAB PO SCH (20:27)
[2022-08-11] MEDS: Cyclobenzaprine 10 MG TAB PO PRN (22:29)
[2022-08-11] MEDS: DOXORUBICIN IVPB SCH (23:36)
[2022-08-12] MEDS: Benzonatate 100 MG CAP PO PRN ×2 (01:28→18:09)
[2022-08-12 05:39] LABS: #Lymphocytes 0.7 thou/uL (1.20-3.40); #Monocytes 0.5 thou/uL (0.11-0.59); #Neutrophils 6.8 thou/uL (1.40-6.50); %Lymphocytes 8.2 % (21.0-51.0); %Monocytes 6.7 % (0.0-10.0); %Neutrophils 85.1 % (42.0-75.0); Hemoglobin 9.1 g/dL (14.0-18.0); Mean Corpuscular HGB CONC 33.1 g/dL (32.0-36.0); Mean Corpuscular Volume 87.6 fl (78.0-98.0); Mean Platelet Volume 9.1 fL (7.4-10.4); Platelet Count 202 10x3/uL (130-400); RBC Distribution Width 15.7 % (11.5-14.5); Red Blood Cell (RBC) Count 3.15 mill/uL (4.70-6.10)
[2022-08-12 06:19] LABS: Albumin 3.1 g/dL (3.4-4.8); Anion Gap 10 mmol/L (10-20); BUN (Urea Nitrogen) 18 mg/dL (8.4-25.7); Bilirubin, Total 0.8 mg/dL (0.2-1.2); Calc. Creatinine Clearance 173 mL/min (70-130); Calcium 8.8 mg/dL (7.8-10.44); Carbon Dioxide 22 mmol/L (23-31); Chloride 114 mmol/L (98-107); Estimated GFR 105; Glucose 88 mg/dL (80-115); Potassium 3.5 mmol/L (3.5-5.1); Protein, Total 5.3 g/dL (5.8-8.1); Sodium 142 mmol/L (136-145)
[2022-08-12 06:20] LABS: ALT (SGPT) 10 U/L (8-55); AST (SGOT) 18 U/L (5-34); Alkaline Phosphatase 120 U/L (40-110); Globulin 2.2 g/dL (2.4-3.5); Magnesium 2.1 mg/dL (1.6-2.6)
[2022-08-12] MEDS ORDERED: Potassium Chloride 20 MEQ TAB PO SCH (08:00)
[2022-08-12] MEDS: Pantoprazole 40 MG VIAL IVP SCH (10:37)
[2022-08-12] MEDS: Amlodipine 10 MG TAB PO SCH (10:38)
[2022-08-12] MEDS: Polyethylene Glycol 3350 17 GM Packet PO SCH (10:38)
[2022-08-12] MEDS: Gabapentin 300 MG CAP PO SCH ×3 (10:38→20:44)
[2022-08-12] MEDS: Losartan 25 MG TAB PO SCH (10:38)
[2022-08-12] MEDS: Senokot S 8.6-50 MG TAB PO SCH ×2 (10:39→20:43)
[2022-08-12] MEDS: ALPRAZolam 0.5 MG TAB PO SCH (10:39)
[2022-08-12] MEDS: Folic Acid 1 MG TAB PO SCH (10:39)
[2022-08-12] MEDS: Morphine 4 MG/ML VIAL SLOW IVP PRN ×4 (10:49→20:53)
[2022-08-12] MEDS: Oxymetazoline HCl 0.05% (30 ML BOT) NS SCH ×2 (10:50→20:45)
[2022-08-12] MEDS: Transdermal Patch Removal TOP SCH (10:59)
[2022-08-12] MEDS: Cyclobenzaprine 10 MG TAB PO PRN ×2 (12:09→23:14)
[2022-08-12 12:41] LABS: Bilirubin Negative (Negative); Blood, Urine Negative (Negative); Clarity Clear (Clear); Glucose, Urine (Dipstick) 70 mg/dL (Negative); Ketone, Urine 80 mg/dL (Negative); Leukocyte Negative Leu/uL (Negative); Nitrite Negative (Negative); Protein, Urine (Dipstick) 10 mg/dL (Neg-Trace); Specific Gravity, Urine 1.019 (1.002-1.036); Urobilinogen Normal mg/dL (Less than 2)
[2022-08-12] MEDS: Sodium Chloride 0.9% 1,000 ML IV SCH (13:04)
[2022-08-12] MEDS: Dexamethasone 10 MG in Sodium Chloride 0.9% 50 ML IVPB SCH (13:04)
[2022-08-12] MEDS: SODIUM CHLORIDE 0.9% IVPB SCH ×3 (13:36→20:39)
[2022-08-12] MEDS: MESNA IVPB SCH ×3 (13:36→20:39)
[2022-08-12] MEDS: guaiFENesin/Codeine 200 mg/20 mg 10 ml Cup PO PRN ×2 (13:44→23:14)
[2022-08-12] MEDS: IFOSFAMIDE IVPB SCH (14:18)
[2022-08-12] MEDS: Lidocaine 5% Patch TD SCH (20:27)
[2022-08-12] MEDS: Atorvastatin Calcium 20 MG TAB PO SCH (20:43)
[2022-08-12] MEDS: oxyCODONE 5 MG TAB PO PRN (23:14)
[2022-08-13] MEDS: SODIUM CHLORIDE 0.9% IVPB SCH (00:34)
[2022-08-13] MEDS: MESNA IVPB SCH (00:34)
[2022-08-13] MEDS: Benzonatate 100 MG CAP PO PRN (03:55)
[2022-08-13 04:37] LABS: #Lymphocytes 0.4 thou/uL (1.20-3.40); #Monocytes 0.2 thou/uL (0.11-0.59); #Neutrophils 5.4 thou/uL (1.40-6.50); %Eosinophils 0.2 % (0.0-10.0); %Lymphocytes 6.2 % (21.0-51.0); %Neutrophils 90.6 % (42.0-75.0); Hemoglobin 9.2 g/dL (14.0-18.0); Mean Corpuscular HGB CONC 32.8 g/dL (32.0-36.0); Mean Corpuscular Hemoglobin 28.7 pg (27.0-31.0); Mean Corpuscular Volume 87.6 fl (78.0-98.0); Mean Platelet Volume 9.4 fL (7.4-10.4); Platelet Count 208 10x3/uL (130-400); RBC Distribution Width 15.4 % (11.5-14.5); White Blood Cell (WBC) Count 5.9 10x3/uL (4.8-10.8)
[2022-08-13 04:38] LABS: Bilirubin Negative (Negative); Blood, Urine 1+ (Negative); Clarity Clear (Clear); Glucose, Urine (Dipstick) 200 mg/dL (Negative); Ketone, Urine Greater than 150 mg/dL (Negative); Leukocyte Negative Leu/uL (Negative); Nitrite Negative (Negative); Protein, Urine (Dipstick) 20 mg/dL (Neg-Trace); Specific Gravity, Urine 1.016 (1.002-1.036); Urobilinogen Normal mg/dL (Less than 2); pH, Urine 6.5 (5.0-9.0)
[2022-08-13 05:09] LABS: ALT (SGPT) 11 U/L (8-55); AST (SGOT) 20 U/L (5-34); Albumin 3.2 g/dL (3.4-4.8); Alkaline Phosphatase 124 U/L (40-110); Anion Gap 11 mmol/L (10-20); BUN (Urea Nitrogen) 21 mg/dL (8.4-25.7); Bilirubin, Total 0.7 mg/dL (0.2-1.2); Calc. Creatinine Clearance 148 mL/min (70-130); Calcium 9.1 mg/dL (7.8-10.44); Carbon Dioxide 21 mmol/L (23-31); Chloride 111 mmol/L (98-107); Estimated GFR 100; Globulin 2.3 g/dL (2.4-3.5); Glucose 96 mg/dL (80-115); Magnesium 2.1 mg/dL (1.6-2.6); Potassium 3.5 mmol/L (3.5-5.1); Protein, Total 5.5 g/dL (5.8-8.1); Sodium 139 mmol/L (136-145)
[2022-08-13] MEDS ORDERED: Lidocaine 1% (PF) 30 ML VIAL ONE (06:33)
[2022-08-13] MEDS ORDERED: FENTANYL 50 MCG/ML 1 ML VIAL ONE (06:59)
[2022-08-13] MEDS ORDERED: Midazolam HCl 2 mg/2 ml Vial ONE (06:59)
[2022-08-13] MEDS ORDERED: Potassium Chloride 20 MEQ TAB PO SCH (08:00)
[2022-08-13] MEDS: Sodium Chloride 0.9% 1,000 ML IV SCH ×3 (09:03→19:54)
[2022-08-13] MEDS: ALPRAZolam 0.5 MG TAB PO SCH (09:03)
[2022-08-13] MEDS: Oxymetazoline HCl 0.05% (30 ML BOT) NS SCH ×2 (09:12→20:16)
[2022-08-13] MEDS: Senokot S 8.6-50 MG TAB PO SCH ×2 (09:13→20:16)
[2022-08-13] MEDS: Polyethylene Glycol 3350 17 GM Packet PO SCH (09:13)
[2022-08-13] MEDS: Amlodipine 10 MG TAB PO SCH (09:14)
[2022-08-13] MEDS: Transdermal Patch Removal TOP SCH (09:14)
[2022-08-13] MEDS: Losartan 25 MG TAB PO SCH (09:15)
[2022-08-13] MEDS: Pantoprazole 40 MG VIAL IVP SCH (09:15)
[2022-08-13] MEDS: Folic Acid 1 MG TAB PO SCH (09:15)
[2022-08-13] MEDS: Gabapentin 300 MG CAP PO SCH ×3 (09:15→20:15)
[2022-08-13] MEDS: guaiFENesin/Codeine 200 mg/20 mg 10 ml Cup PO PRN (10:02)
[2022-08-13] MEDS ORDERED: Iopamidol 370 76% 100 ML VIAL ONE (10:20)
[2022-08-13 11:21] LABS: Platelet Count 184 10x3/uL (130-400)
[2022-08-13 11:25] LABS: Fibrinogen 431 mg/dL (253-463)
[2022-08-13 11:26] LABS: PTT 30.2 sec (22.9-36.1)
[2022-08-13 11:27] LABS: D-Dimer Test 1.69 *mcg/mL (0.27-0.43); INR-International Normal Ratio 1.2; Prothrombin Time 15.3 sec (12.0-14.7)
[2022-08-13] MEDS: Morphine 4 MG/ML VIAL SLOW IVP PRN ×3 (11:57→20:17)
[2022-08-13] MEDS ORDERED: MESNA IVPB SCH ×2 (12:15→12:45)
[2022-08-13] MEDS ORDERED: SODIUM CHLORIDE 0.9% IVPB SCH (12:45)
[2022-08-13] MEDS: Atorvastatin Calcium 20 MG TAB PO SCH (20:15)
[2022-08-13] MEDS: Lidocaine 5% Patch TD SCH (20:16)
[2022-08-14] MEDS: Sodium Chloride 0.9% 1,000 ML IV SCH ×4 (01:44→23:01)
[2022-08-14] MEDS: guaiFENesin/Codeine 200 mg/20 mg 10 ml Cup PO PRN ×3 (01:46→21:15)
[2022-08-14] MEDS: Morphine 4 MG/ML VIAL SLOW IVP PRN ×5 (01:47→23:02)
[2022-08-14 05:24] LABS: #Lymphocytes 0.4 thou/uL (1.20-3.40); #Monocytes 0.1 thou/uL (0.11-0.59); #Neutrophils 4.2 thou/uL (1.40-6.50); %Eosinophils 0.7 % (0.0-10.0); %Lymphocytes 8.6 % (21.0-51.0); %Neutrophils 89.7 % (42.0-75.0); Mean Corpuscular HGB CONC 33.5 g/dL (32.0-36.0); Mean Corpuscular Hemoglobin 28.9 pg (27.0-31.0); Mean Corpuscular Volume 86.1 fl (78.0-98.0); Mean Platelet Volume 9.3 fL (7.4-10.4); Platelet Count 174 10x3/uL (130-400); RBC Distribution Width 15.3 % (11.5-14.5); White Blood Cell (WBC) Count 4.7 10x3/uL (4.8-10.8)
[2022-08-14 05:39] LABS: Bilirubin Negative (Negative); Blood, Urine 1+ (Negative); Clarity Clear (Clear); Glucose, Urine (Dipstick) Normal (Negative); Ketone, Urine Trace mg/dL (Negative); Leukocyte Negative Leu/uL (Negative); Nitrite Negative (Negative); Protein, Urine (Dipstick) 30 mg/dL (Neg-Trace); Specific Gravity, Urine 1.011 (1.002-1.036); Urobilinogen Normal mg/dL (Less than 2); pH, Urine 6.5 (5.0-9.0)
[2022-08-14 05:46] LABS: ALT (SGPT) 14 U/L (8-55); AST (SGOT) 20 U/L (5-34); Alkaline Phosphatase 115 U/L (40-110); Anion Gap 9 mmol/L (10-20); BUN (Urea Nitrogen) 22 mg/dL (8.4-25.7); Bilirubin, Total 0.6 mg/dL (0.2-1.2); Calc. Creatinine Clearance 135 mL/min (70-130); Calcium 8.8 mg/dL (7.8-10.44); Carbon Dioxide 22 mmol/L (23-31); Chloride 111 mmol/L (98-107); Estimated GFR 97; Globulin 2.3 g/dL (2.4-3.5); Glucose 90 mg/dL (80-115); Magnesium 2.1 mg/dL (1.6-2.6); Potassium 3.3 mmol/L (3.5-5.1); Protein, Total 5.3 g/dL (5.8-8.1); Sodium 139 mmol/L (136-145)
[2022-08-14] MEDS ORDERED: PEGFILGRASTIM-JMDB 6 MG/0.6 ML SYRINGE SQ SCH (06:00)
[2022-08-14] MEDS ORDERED: Potassium Chloride 20 MEQ TAB PO SCH (08:00)
[2022-08-14] MEDS: Gabapentin 300 MG CAP PO SCH ×3 (08:02→21:10)
[2022-08-14] MEDS: ALPRAZolam 0.5 MG TAB PO SCH (08:02)
[2022-08-14] MEDS: Pantoprazole 40 MG VIAL IVP SCH (08:02)
[2022-08-14] MEDS: Losartan 25 MG TAB PO SCH (08:03)
[2022-08-14] MEDS: Amlodipine 10 MG TAB PO SCH (08:03)
[2022-08-14] MEDS: oxyCODONE 5 MG TAB PO PRN ×3 (08:03→21:13)
[2022-08-14] MEDS: Folic Acid 1 MG TAB PO SCH (08:06)
[2022-08-14] MEDS: Polyethylene Glycol 3350 17 GM Packet PO SCH (09:02)
[2022-08-14] MEDS: Senokot S 8.6-50 MG TAB PO SCH ×2 (09:02→21:11)
[2022-08-14] MEDS: Transdermal Patch Removal TOP SCH (09:03)
[2022-08-14] MEDS: Atorvastatin Calcium 20 MG TAB PO SCH (21:10)
[2022-08-14] MEDS: Lidocaine 5% Patch TD SCH (21:11)
[2022-08-15] MEDS: Morphine 4 MG/ML VIAL SLOW IVP PRN ×4 (02:35→20:24)
[2022-08-15] MEDS: guaiFENesin/Codeine 200 mg/20 mg 10 ml Cup PO PRN ×3 (02:39→22:12)
[2022-08-15 02:57] LABS: Bilirubin Negative (Negative); Blood, Urine 1+ (Negative); Clarity Clear (Clear); Glucose, Urine (Dipstick) 50 mg/dL (Negative); Ketone, Urine Negative (Negative); Leukocyte Negative Leu/uL (Negative); Nitrite Negative (Negative); Protein, Urine (Dipstick) 20 mg/dL (Neg-Trace); Urobilinogen Normal mg/dL (Less than 2); pH, Urine 6.5 (5.0-9.0)
[2022-08-15 05:41] LABS: Hemoglobin 8.8 g/dL (14.0-18.0); Mean Corpuscular HGB CONC 31.7 g/dL (32.0-36.0); Mean Corpuscular Hemoglobin 27.6 pg (27.0-31.0); Platelet Count 155 10x3/uL (130-400); RBC Distribution Width 15.3 % (11.5-14.5); White Blood Cell (WBC) Count 7.5 10x3/uL (4.8-10.8)
[2022-08-15 06:01] LABS: ALT (SGPT) 14 U/L (8-55); AST (SGOT) 21 U/L (5-34); Albumin 3.3 g/dL (3.4-4.8); Alkaline Phosphatase 158 U/L (40-110); Anion Gap 10 mmol/L (10-20); BUN (Urea Nitrogen) 19 mg/dL (8.4-25.7); Bilirubin, Total 0.8 mg/dL (0.2-1.2); Calc. Creatinine Clearance 120 mL/min (70-130); Calcium 8.7 mg/dL (7.8-10.44); Carbon Dioxide 20 mmol/L (23-31); Chloride 112 mmol/L (98-107); Estimated GFR 85; Globulin 2.4 g/dL (2.4-3.5); Glucose 97 mg/dL (80-115); Magnesium 2.2 mg/dL (1.6-2.6); Potassium 3.5 mmol/L (3.5-5.1); Protein, Total 5.7 g/dL (5.8-8.1); Sodium 138 mmol/L (136-145)
[2022-08-15 07:03] LABS: Anisocytosis SLIGHT = 6-15 cells (100X) (0-5/hpf); Hypochromia SLIGHT = 6-15 cells (100X) (0-5/hpf); Lymphocytes 7 % (21-51); MDiff Complete? YES; Neutrophil 93 % (42-75); Ovalocytes SLIGHT = 2-5 cells (100X) (0-1/hpf); Platelet Morphology Comment Appears Adequate
[2022-08-15] MEDS ORDERED: Potassium Chloride 20 MEQ TAB PO SCH ×2 (08:00→22:00)
[2022-08-15] MEDS: Folic Acid 1 MG TAB PO SCH (09:02)
[2022-08-15] MEDS: ALPRAZolam 0.5 MG TAB PO SCH (09:02)
[2022-08-15] MEDS: Pantoprazole 40 MG VIAL IVP SCH (09:02)
[2022-08-15] MEDS: oxyCODONE 5 MG TAB PO PRN ×2 (09:02→17:24)
[2022-08-15] MEDS: Amlodipine 10 MG TAB PO SCH (09:04)
[2022-08-15] MEDS: Gabapentin 300 MG CAP PO SCH ×3 (09:05→20:31)
[2022-08-15] MEDS: Losartan 25 MG TAB PO SCH (09:05)
[2022-08-15] MEDS: Sodium Chloride 0.9% 1,000 ML IV SCH ×2 (09:05→15:02)
[2022-08-15] MEDS: Transdermal Patch Removal TOP SCH (09:06)
[2022-08-15] MEDS: Senokot S 8.6-50 MG TAB PO SCH ×3 (09:06→20:34)
[2022-08-15] MEDS: Polyethylene Glycol 3350 17 GM Packet PO SCH (09:06)
[2022-08-15 15:24] LABS: Potassium 3.4 mmol/L (3.5-5.1)
[2022-08-15] MEDS: Atorvastatin Calcium 20 MG TAB PO SCH (20:32)
[2022-08-15] MEDS: Lidocaine 5% Patch TD SCH (20:34)
[2022-08-16] MEDS: Sodium Chloride 0.9% 1,000 ML IV SCH ×2 (03:37→08:25)
[2022-08-16 06:44] LABS: Hemoglobin 8.1 g/dL (14.0-18.0); Mean Corpuscular HGB CONC 32.5 g/dL (32.0-36.0); Mean Corpuscular Volume 86.3 fl (78.0-98.0); RBC Distribution Width 15.2 % (11.5-14.5); White Blood Cell (WBC) Count 1.8 10x3/uL (4.8-10.8)
[2022-08-16] MEDS: Benzonatate 100 MG CAP PO PRN (06:46)
[2022-08-16] MEDS: Morphine 4 MG/ML VIAL SLOW IVP PRN (06:46)
[2022-08-16 06:57] LABS: ALT (SGPT) 16 U/L (8-55); AST (SGOT) 17 U/L (5-34); Alkaline Phosphatase 221 U/L (40-110); Anion Gap 7 mmol/L (10-20); BUN (Urea Nitrogen) 19 mg/dL (8.4-25.7); Band 1 % (5-11); Bilirubin, Total 0.6 mg/dL (0.2-1.2); Calc. Creatinine Clearance 135 mL/min (70-130); Calcium 8.5 mg/dL (7.8-10.44); Carbon Dioxide 19 mmol/L (23-31); Chloride 114 mmol/L (98-107); Eosinophils 2 % (0-10); Estimated GFR 97; Globulin 2.4 g/dL (2.4-3.5); Glucose 121 mg/dL (80-115); Lymphocytes 16 % (21-51); MDiff Complete? YES; Magnesium 2.2 mg/dL (1.6-2.6); Mean Platelet Volume 9.4 fL (7.4-10.4); Neutrophil 81 % (42-75); Platelet Count 102 10x3/uL (130-400); Platelet Morphology Comment Appears Decreased; Potassium 3.4 mmol/L (3.5-5.1); Protein, Total 5.4 g/dL (5.8-8.1); Sodium 137 mmol/L (136-145)
[2022-08-16 08:00] LABS: Bacteria/HPF None Seen HPF (None Seen); Bilirubin Negative (Negative); Blood, Urine 2+ (Negative); Clarity Clear (Clear); Glucose, Urine (Dipstick) 500 mg/dL (Negative); Ketone, Urine Negative (Negative); Leukocyte Negative Leu/uL (Negative); Nitrite Negative (Negative); Protein, Urine (Dipstick) 30 mg/dL (Neg-Trace); Specific Gravity, Urine 1.015 (1.002-1.036); Squamous Epithelial None Seen HPF (0-3); Urobilinogen Normal mg/dL (Less than 2); pH, Urine 5.5 (5.0-9.0)
[2022-08-16] MEDS ORDERED: Lactated Ringer's 1,000 ML IV SCH (08:00)
[2022-08-16] MEDS ORDERED: Potassium Chloride 20 MEQ TAB PO SCH (08:00)
[2022-08-16 09:05] VITALS: BP 125/68; TEMP 98.9
[2022-08-16] MEDS: Pantoprazole 40 MG VIAL IVP SCH (09:09)
[2022-08-16] MEDS: guaiFENesin/Codeine 200 mg/20 mg 10 ml Cup PO PRN (09:11)
[2022-08-16] MEDS: ALPRAZolam 0.5 MG TAB PO SCH (09:12)
[2022-08-16] MEDS: Amlodipine 10 MG TAB PO SCH (09:12)
[2022-08-16] MEDS: Gabapentin 300 MG CAP PO SCH (09:12)
[2022-08-16] MEDS: Transdermal Patch Removal TOP SCH (09:14)
[2022-08-16] MEDS: Polyethylene Glycol 3350 17 GM Packet PO SCH (09:14)
[2022-08-16] MEDS: Folic Acid 1 MG TAB PO SCH (09:14)
[2022-08-16] MEDS: Senokot S 8.6-50 MG TAB PO SCH (09:14)
[2022-08-16] MEDS: Losartan 25 MG TAB PO SCH (09:14)
[2022-08-16] MEDS: oxyCODONE 5 MG TAB PO PRN (10:55)
== END 2022-08-16 13:10 | disposition home health service (06) | DRG 543 ==
LOC: ERS 08:03 → ERHOLD 12:02 → OBSVTOIN 18:47 → 2SW 23:34 → MSONC 08-09 12:14
PROVIDERS: ADMIT Family Medicine; ATTEND Family Medicine
PROC: 3E03305 Introduction of Other Antineoplastic into Peripheral Vein, Percutaneous Approach (ICD-10-PCS; 2022-08-09)
PROC: 06H03DZ Insertion of Intraluminal Device into Inferior Vena Cava, Percutaneous Approach (ICD-10-PCS; principal; 2022-08-13)
DX: C49.22 Malignant neoplasm of connective and soft tissue of left lower limb, including hip (principal); C78.01 Secondary malignant neoplasm of right lung; I82.412 Acute embolism and thrombosis of left femoral vein; C78.02 Secondary malignant neoplasm of left lung; C79.51 Secondary malignant neoplasm of bone; R04.2 Hemoptysis; D62 Acute posthemorrhagic anemia; R04.89 Hemorrhage from other sites in respiratory passages; M84.511A Pathological fracture in neoplastic disease, right shoulder, initial encounter for fracture; E86.0 Dehydration; Z20.822 Contact with and (suspected) exposure to COVID-19; Z66 Do not resuscitate; R19.7 Diarrhea, unspecified; K21.9 Gastro-esophageal reflux disease without esophagitis; R91.1 Solitary pulmonary nodule; E87.6 Hypokalemia; D64.9 Anemia, unspecified; G62.9 Polyneuropathy, unspecified; G89.3 Neoplasm related pain (acute) (chronic); I10 Essential (primary) hypertension; Z90.89 Acquired absence of other organs; Z88.0 Allergy status to penicillin; Z79.899 Other long term (current) drug therapy; E78.2 Mixed hyperlipidemia; Z80.3 Family history of malignant neoplasm of breast
CPT/HCPCS: 36010; 36415; 36416; 37191; 71045; 71260; 72125; 80048; 80053; 81001; 81003; 83735; 84484; 85025; 85049; 85300; 85362; 85379; 85384; 85610; 85730; 86850; 86900; 86901; 87086; 87811; 93005; 96372; 96374; 96376; 99152; C1769; C1880; C1894; C9113; J1100; J1453; J1642; J1650; J2001; J2250; J2270; J2469; J3010; J3475; J3480; J3490; J7050; J7120; J9000; J9208; J9209; Q5108; Q9967; U0002

== ENCOUNTER 2022-08-20 03:23 | Inpatient (IN) | payer OTHER ==
[2022-08-20 04:46] LABS: Hemoglobin 7.9 g/dL (14.0-18.0); Mean Corpuscular HGB CONC 33.6 g/dL (32.0-36.0); Mean Corpuscular Hemoglobin 28.3 pg (27.0-31.0); Mean Corpuscular Volume 84.4 fl (78.0-98.0); Mean Platelet Volume 14.8 fL (7.4-10.4); Platelet Count 9 10x3/uL (130-400); RBC Distribution Width 14.9 % (11.5-14.5); Red Blood Cell (RBC) Count 2.77 mill/uL (4.70-6.10); White Blood Cell (WBC) Count 0.1 10x3/uL (4.8-10.8)
[2022-08-20 04:52] LABS: ALT (SGPT) 28 U/L (8-55); AST (SGOT) 32 U/L (5-34); Albumin 3.2 g/dL (3.4-4.8); Alkaline Phosphatase 418 U/L (40-110); Anion Gap 11 mmol/L (10-20); BUN (Urea Nitrogen) 13 mg/dL (8.4-25.7); Bilirubin, Total 2.1 mg/dL (0.2-1.2); Calc. Creatinine Clearance 0 mL/min (70-130); Calcium 8.5 mg/dL (7.8-10.44); Carbon Dioxide 20 mmol/L (23-31); Chloride 107 mmol/L (98-107); Estimated GFR 95; Globulin 2.7 g/dL (2.4-3.5); Glucose 146 mg/dL (80-115); Potassium 3.2 mmol/L (3.5-5.1); Protein, Total 5.9 g/dL (5.8-8.1); Sodium 135 mmol/L (136-145)
[2022-08-20] MEDS ORDERED: Aztreonam 1 GM in Sodium Chloride 0.9% 100 ML IVPB SCH (05:15)
[2022-08-20] MEDS ORDERED: Vancomycin 1.5 GRAM/300 ML BAG 1.5 GM in Premix Bag 1 BAG IVPB SCH (05:15)
[2022-08-20 05:44] LABS: Bacteria/HPF None Seen HPF (None Seen); Bilirubin 1+ (Negative); Blood, Urine 2+ (Negative); Clarity Clear (Clear); Glucose, Urine (Dipstick) >=1000 mg/dL (Negative); Ketone, Urine Negative (Negative); Leukocyte Negative Leu/uL (Negative); Nitrite Negative (Negative); Protein, Urine (Dipstick) 100 mg/dL (Neg-Trace); Renal Epithelial 0-3 HPF (None Seen); Squamous Epithelial None Seen HPF (0-3); pH, Urine 5.5 (5.0-9.0)
[2022-08-20] MEDS ORDERED: HYDROcodone/Acetaminophen 5/325 mg Tablet PO PRN (07:41)
[2022-08-20] MEDS ORDERED: Senokot S 8.6-50 MG TAB PO PRN (07:41)
[2022-08-20] MEDS ORDERED: Calcium Carbonate 500 MG ChewTAB PO PRN (07:41)
[2022-08-20] MEDS ORDERED: Potassium Chloride 20 MEQ TAB PO SCH (08:00)
[2022-08-20 08:28] LABS: Hemoglobin 8.2 g/dL (14.0-18.0); Mean Corpuscular HGB CONC 33.6 g/dL (32.0-36.0); Mean Corpuscular Hemoglobin 28.7 pg (27.0-31.0); Mean Corpuscular Volume 85.6 fl (78.0-98.0); Platelet Count 13 10x3/uL (130-400); Red Blood Cell (RBC) Count 2.87 mill/uL (4.70-6.10); White Blood Cell (WBC) Count 0.1 10x3/uL (4.8-10.8)
[2022-08-20] MEDS: Morphine 4 MG/ML VIAL SLOW IVP PRN ×3 (08:43→19:54)
[2022-08-20] MEDS: Famotidine/PF 20 mg/2ml Vial SLOW IVP SCH ×2 (08:44→19:59)
[2022-08-20 08:56] LABS: MDiff Complete? YES; Platelet Morphology Comment Appears Decreased; Polychromasia SLIGHT = 2-3 cells (100X) (0-2/hpf)
[2022-08-20] MEDS ORDERED: Cefepime 1 GM in Sodium Chloride 0.9% 100 ML IVPB SCH (09:00)
[2022-08-20] MEDS: NS 0.9% w/ 20 MEQ KCL 1,000 ML/1,000 ML BAG IV SCH ×2 (09:44→22:49)
[2022-08-20 10:43] VITALS: BMI 33.0
[2022-08-20] MEDS: Aluminum & Magnesium Hydroxide 60 ML, diphenhydrAMINE 150 MG, Lidocaine 2% Viscous Solu... SSW SCH ×3 (11:34→20:38)
[2022-08-20] MEDS: VANCOMYCIN 2 GRAM/500 ML BAG 2 GM in Premix Bag 1 BAG IVPB SCH (12:12)
[2022-08-20] MEDS: HYDROcodone/Acetaminophen 7.5/325 mg Tablet PO PRN ×3 (12:12→22:48)
[2022-08-20] MEDS ORDERED: Vancomycin 1 GM in Premix Bag 1 BAG IVPB SCH (17:00)
[2022-08-20] MEDS: Cefepime 2 GM in Sodium Chloride 0.9% 100 ML IVPB SCH (20:00)
[2022-08-21] MEDS: Morphine 4 MG/ML VIAL SLOW IVP PRN ×5 (00:23→20:15)
[2022-08-21] MEDS: VANCOMYCIN 2 GRAM/500 ML BAG 2 GM in Premix Bag 1 BAG IVPB SCH ×2 (00:23→12:19)
[2022-08-21] MEDS: HYDROcodone/Acetaminophen 7.5/325 mg Tablet PO PRN ×5 (05:49→22:37)
[2022-08-21 06:16] LABS: Mean Corpuscular Hemoglobin 28.4 pg (27.0-31.0); Mean Corpuscular Volume 86.3 fl (78.0-98.0); Mean Platelet Volume 11.1 fL (7.4-10.4); Platelet Count 12 10x3/uL (130-400); RBC Distribution Width 14.7 % (11.5-14.5); Red Blood Cell (RBC) Count 2.48 mill/uL (4.70-6.10); White Blood Cell (WBC) Count 0.1 10x3/uL (4.8-10.8)
[2022-08-21 06:37] LABS: ALT (SGPT) 25 U/L (8-55); AST (SGOT) 26 U/L (5-34); Albumin 2.9 g/dL (3.4-4.8); Alkaline Phosphatase 348 U/L (40-110); Anion Gap 9 mmol/L (10-20); BUN (Urea Nitrogen) 10 mg/dL (8.4-25.7); Bilirubin, Total 2.1 mg/dL (0.2-1.2); Calc. Creatinine Clearance 151 mL/min (70-130); Calcium 8.4 mg/dL (7.8-10.44); Carbon Dioxide 24 mmol/L (23-31); Chloride 109 mmol/L (98-107); Estimated GFR 102; Globulin 2.7 g/dL (2.4-3.5); Glucose 108 mg/dL (80-115); Potassium 3.5 mmol/L (3.5-5.1); Protein, Total 5.6 g/dL (5.8-8.1); Sodium 138 mmol/L (136-145)
[2022-08-21] MEDS: Aluminum & Magnesium Hydroxide 60 ML, diphenhydrAMINE 150 MG, Lidocaine 2% Viscous Solu... SSW SCH ×4 (07:36→20:15)
[2022-08-21] MEDS: Cefepime 2 GM in Sodium Chloride 0.9% 100 ML IVPB SCH ×2 (07:37→20:18)
[2022-08-21] MEDS: Famotidine/PF 20 mg/2ml Vial SLOW IVP SCH (07:38)
[2022-08-21] MEDS ORDERED: guaiFENesin/Codeine 200 mg/20 mg 10 ml Cup PO PRN (13:10)
[2022-08-21] MEDS: Benzonatate 100 MG CAP PO SCH ×2 (14:19→20:14)
[2022-08-21] MEDS: NS 0.9% w/ 20 MEQ KCL 1,000 ML/1,000 ML BAG IV SCH (14:21)
[2022-08-21] MEDS: ALPRAZolam 0.5 MG TAB PO PRN (14:50)
[2022-08-21] MEDS ORDERED: Famotidine 20 MG TAB PO SCH (21:00)
[2022-08-21 23:33] LABS: Vancomycin, Trough 17.6 ug/mL
[2022-08-22] MEDS: VANCOMYCIN 2 GRAM/500 ML BAG 2 GM in Premix Bag 1 BAG IVPB SCH ×3 (00:33→23:54)
[2022-08-22] MEDS: HYDROcodone/Acetaminophen 7.5/325 mg Tablet PO PRN ×2 (04:47→19:55)
[2022-08-22] MEDS: NS 0.9% w/ 20 MEQ KCL 1,000 ML/1,000 ML BAG IV SCH ×4 (04:50→19:56)
[2022-08-22] MEDS: Morphine 4 MG/ML VIAL SLOW IVP PRN ×3 (05:29→21:12)
[2022-08-22 06:32] LABS: Hemoglobin 7.2 g/dL (14.0-18.0); Mean Corpuscular HGB CONC 32.8 g/dL (32.0-36.0); Mean Corpuscular Hemoglobin 28.3 pg (27.0-31.0); Mean Corpuscular Volume 86.3 fl (78.0-98.0); Mean Platelet Volume 10.7 fL (7.4-10.4); Platelet Count 12 10x3/uL (130-400); RBC Distribution Width 14.7 % (11.5-14.5); Red Blood Cell (RBC) Count 2.55 mill/uL (4.70-6.10); White Blood Cell (WBC) Count 0.3 10x3/uL (4.8-10.8)
[2022-08-22 06:47] LABS: Anion Gap 9 mmol/L (10-20); BUN (Urea Nitrogen) 10 mg/dL (8.4-25.7); Calc. Creatinine Clearance 155 mL/min (70-130); Calcium 8.8 mg/dL (7.8-10.44); Carbon Dioxide 24 mmol/L (23-31); Chloride 110 mmol/L (98-107); Estimated GFR 103; Glucose 114 mg/dL (80-115); Potassium 3.2 mmol/L (3.5-5.1); Sodium 140 mmol/L (136-145)
[2022-08-22] MEDS ORDERED: Potassium Chloride 20 MEQ TAB PO SCH (08:15)
[2022-08-22] MEDS: Aluminum & Magnesium Hydroxide 60 ML, diphenhydrAMINE 150 MG, Lidocaine 2% Viscous Solu... SSW SCH ×4 (09:36→21:06)
[2022-08-22] MEDS: Benzonatate 100 MG CAP PO SCH ×3 (09:38→19:54)
[2022-08-22] MEDS: Cefepime 2 GM in Sodium Chloride 0.9% 100 ML IVPB SCH ×2 (09:39→19:57)
[2022-08-22] MEDS: ALPRAZolam 0.5 MG TAB PO PRN (09:58)
[2022-08-22] MEDS ORDERED: Non-Formulary Item 1 EACH (Fentanyl [Fentanyl] 1 EACH Patch.Td72) TD SCH (11:15)
[2022-08-22] MEDS ORDERED: HYDROcodone/Acetaminophen 5/325 mg Tablet PO PRN (14:16)
[2022-08-22] MEDS: Gabapentin 300 MG CAP PO SCH ×2 (15:13→19:53)
[2022-08-22] MEDS: Amlodipine 10 MG TAB PO SCH (19:54)
[2022-08-22] MEDS: Atorvastatin Calcium 20 MG TAB PO SCH (19:55)
[2022-08-22] MEDS: Cyclobenzaprine 10 MG TAB PO PRN (20:09)
[2022-08-23] MEDS: HYDROcodone/Acetaminophen 7.5/325 mg Tablet PO PRN ×3 (02:27→17:16)
[2022-08-23] MEDS: Morphine 4 MG/ML VIAL SLOW IVP PRN ×2 (03:05→21:05)
[2022-08-23] MEDS: Cyclobenzaprine 10 MG TAB PO PRN ×2 (05:11→14:16)
[2022-08-23 05:51] LABS: Band 28 % (5-11); Differential Comment Immature Cell(s); Hemoglobin 7.2 g/dL (14.0-18.0); Hypochromia SLIGHT = 6-15 cells (100X) (0-5/hpf); Lymphocytes 28 % (21-51); MDiff Complete? YES; Mean Corpuscular HGB CONC 33.6 g/dL (32.0-36.0); Mean Corpuscular Hemoglobin 28.7 pg (27.0-31.0); Mean Corpuscular Volume 85.5 fl (78.0-98.0); Mean Platelet Volume 12.3 fL (7.4-10.4); Monocytes 8 % (0-10); Neutrophil 16 % (42-75); Platelet Count 19 10x3/uL (130-400); Platelet Morphology Comment Appears Decreased; RBC Distribution Width 14.6 % (11.5-14.5); Red Blood Cell (RBC) Count 2.49 mill/uL (4.70-6.10); Reflex for Review?? YES; White Blood Cell (WBC) Count 1.1 10x3/uL (4.8-10.8)
[2022-08-23] MEDS: Aluminum & Magnesium Hydroxide 60 ML, diphenhydrAMINE 150 MG, Lidocaine 2% Viscous Solu... SSW SCH ×4 (08:10→21:00)
[2022-08-23] MEDS: NS 0.9% w/ 20 MEQ KCL 1,000 ML/1,000 ML BAG IV SCH ×2 (08:10→20:57)
[2022-08-23] MEDS: Gabapentin 300 MG CAP PO SCH ×3 (08:11→20:58)
[2022-08-23] MEDS: Losartan 25 MG TAB PO SCH (08:11)
[2022-08-23] MEDS: Cefepime 2 GM in Sodium Chloride 0.9% 100 ML IVPB SCH ×2 (08:11→20:58)
[2022-08-23] MEDS: Folic Acid 1 MG TAB PO SCH (08:11)
[2022-08-23] MEDS: Benzonatate 100 MG CAP PO SCH ×4 (08:13→20:58)
[2022-08-23] MEDS ORDERED: Non-Formulary Item 1 EACH (Telmisartan [Telmisartan] 40 MG Tablet) PO SCH (09:00)
[2022-08-23 13:10] LABS: Vancomycin, Trough 22.7 ug/mL
[2022-08-23] MEDS: VANCOMYCIN 2 GRAM/500 ML BAG 2 GM in Premix Bag 1 BAG IVPB SCH (13:24)
[2022-08-23] MEDS: VANCOMYCIN 1.25 GM/250 ML BAG 1.25 GM in Premix Bag 1 BAG IVPB SCH (14:15)
[2022-08-23] MEDS: Amlodipine 10 MG TAB PO SCH (20:57)
[2022-08-23] MEDS: Atorvastatin Calcium 20 MG TAB PO SCH (20:58)
[2022-08-24] MEDS: VANCOMYCIN 1.25 GM/250 ML BAG 1.25 GM in Premix Bag 1 BAG IVPB SCH (02:40)
[2022-08-24 06:40] LABS: Band 25 % (5-11); Hemoglobin 7.4 g/dL (14.0-18.0); Hypochromia SLIGHT = 6-15 cells (100X) (0-5/hpf); Lymphocytes 11 % (21-51); MDiff Complete? YES; Mean Corpuscular HGB CONC 33.9 g/dL (32.0-36.0); Mean Corpuscular Hemoglobin 28.8 pg (27.0-31.0); Mean Corpuscular Volume 84.9 fl (78.0-98.0); Mean Platelet Volume 10.7 fL (7.4-10.4); Metamyelocyte 2 % (0-0); Monocytes 11 % (0-10); Neutrophil 45 % (42-75); Platelet Count 42 10x3/uL (130-400); Platelet Morphology Comment Appears Decreased; RBC Distribution Width 14.7 % (11.5-14.5); Red Blood Cell (RBC) Count 2.58 mill/uL (4.70-6.10); White Blood Cell (WBC) Count 4.2 10x3/uL (4.8-10.8)
[2022-08-24 06:48] LABS: Differential Comment Immature Cell(s)
[2022-08-24 08:44] VITALS: BP 146/86; TEMP 98.1
[2022-08-24] MEDS: Aluminum & Magnesium Hydroxide 60 ML, diphenhydrAMINE 150 MG, Lidocaine 2% Viscous Solu... SSW SCH (09:55)
[2022-08-24] MEDS: Cefepime 2 GM in Sodium Chloride 0.9% 100 ML IVPB SCH (09:55)
[2022-08-24] MEDS: NS 0.9% w/ 20 MEQ KCL 1,000 ML/1,000 ML BAG IV SCH (09:56)
[2022-08-24] MEDS: Gabapentin 300 MG CAP PO SCH (09:56)
[2022-08-24] MEDS: Losartan 25 MG TAB PO SCH (09:58)
[2022-08-24] MEDS: Folic Acid 1 MG TAB PO SCH (09:58)
[2022-08-24] MEDS: HYDROcodone/Acetaminophen 7.5/325 mg Tablet PO PRN (09:58)
[2022-08-24] MEDS: Benzonatate 100 MG CAP PO SCH (09:59)
== END 2022-08-24 10:50 | disposition home or self-care (01) | DRG 152 ==
LOC: ERS 03:23 → SUATTDRO 03:23 → MSONC 08:22
PROVIDERS: ADMIT Internal Medicine; ATTEND Internal Medicine
PROC: 6A550Z2 Pheresis of Platelets, Single (ICD-10-PCS; principal; 2022-08-20)
DX: J06.9 Acute upper respiratory infection, unspecified (principal); D61.810 Antineoplastic chemotherapy induced pancytopenia; C78.00 Secondary malignant neoplasm of unspecified lung; C79.51 Secondary malignant neoplasm of bone; R04.2 Hemoptysis; M84.512A Pathological fracture in neoplastic disease, left shoulder, initial encounter for fracture; T45.1X5A Adverse effect of antineoplastic and immunosuppressive drugs, initial encounter; I10 Essential (primary) hypertension; E78.5 Hyperlipidemia, unspecified; G89.3 Neoplasm related pain (acute) (chronic); C76.52 Malignant neoplasm of left lower limb; K21.9 Gastro-esophageal reflux disease without esophagitis; Z88.0 Allergy status to penicillin; Z79.899 Other long term (current) drug therapy; Z86.718 Personal history of other venous thrombosis and embolism; Z82.49 Family history of ischemic heart disease and other diseases of the circulatory system; Z98.890 Other specified postprocedural states
CPT/HCPCS: 36415; 36430; 71045; 80048; 80053; 80202; 81003; 81015; 83605; 85025; 85060; 86850; 86900; 86901; 87040; 87086; 93005; 96365; 96366; 97139; J0692; J2270; J3370; J3480; J3490; P9035; Q0163; S0028

== ENCOUNTER 2022-08-30 13:19 | Inpatient (IN) | payer OTHER ==
[2022-08-30 14:40] VITALS: BMI 33.7
[2022-08-30] MEDS ORDERED: Ondansetron PF 4 MG/2 ML Vial IVP PRN (21:09)
[2022-08-30] MEDS ORDERED: Ondansetron ODT 4 MG TAB PO PRN (21:09)
[2022-08-30] MEDS ORDERED: Acetaminophen 325 MG TAB PO PRN (21:09)
[2022-08-30] MEDS ORDERED: Cepastat Lozenges 1 LOZ PO PRN (21:55)
[2022-08-30] MEDS ORDERED: Benzonatate 100 MG CAP PO PRN (22:28)
[2022-08-30] MEDS ORDERED: oxyCODONE 5 MG TAB PO PRN (22:31)
[2022-08-31] MEDS ORDERED: Dexamethasone 10 MG in Sodium Chloride 0.9% 50 ML IVPB SCH (00:01)
[2022-08-31] MEDS ORDERED: PALONOSETRON HCL 0.05 MG/ML 5 ML VIAL IVP SCH (00:01)
[2022-08-31] MEDS ORDERED: Fosaprepitant Dimeglumine 150 MG in Sodium Chloride 0.9% 250 ML 145 ML IVPB SCH (00:01)
[2022-08-31 05:49] LABS: Hemoglobin 7.3 g/dL (14.0-18.0); Mean Corpuscular HGB CONC 32.3 g/dL (32.0-36.0); Mean Corpuscular Hemoglobin 27.5 pg (27.0-31.0); RBC Distribution Width 15.8 % (11.5-14.5); Red Blood Cell (RBC) Count 2.67 mill/uL (4.70-6.10)
[2022-08-31 06:00] LABS: ALT (SGPT) 27 U/L (8-55); AST (SGOT) 26 U/L (5-34); Albumin 3.2 g/dL (3.4-4.8); Alkaline Phosphatase 603 U/L (40-110); Anion Gap 10 mmol/L (10-20); BUN (Urea Nitrogen) 9 mg/dL (8.4-25.7); Bilirubin, Total 0.5 mg/dL (0.2-1.2); Calc. Creatinine Clearance 178 mL/min (70-130); Calcium 8.7 mg/dL (7.8-10.44); Carbon Dioxide 25 mmol/L (23-31); Chloride 108 mmol/L (98-107); Estimated GFR 107; Globulin 2.7 g/dL (2.4-3.5); Glucose 102 mg/dL (80-115); Magnesium 1.9 mg/dL (1.6-2.6); Phosphorus 3.8 mg/dL (2.3-4.7); Potassium 3.4 mmol/L (3.5-5.1); Protein, Total 5.9 g/dL (5.8-8.1); Sodium 140 mmol/L (136-145)
[2022-08-31 06:13] LABS: Band 9 % (5-11); Lymphocytes 2 % (21-51); MDiff Complete? YES; Mean Platelet Volume 7.9 fL (7.4-10.4); Metamyelocyte 2 % (0-0); Monocytes 7 % (0-10); Myelocyte 5 % (0-0); Neutrophil 75 % (42-75); Platelet Count 619 10x3/uL (130-400); Platelet Morphology Comment Appears Increased; White Blood Cell (WBC) Count 12.7 10x3/uL (4.8-10.8)
[2022-08-31] MEDS: Losartan 25 MG TAB PO SCH (08:01)
[2022-08-31] MEDS: Cefdinir 300 MG CAP PO SCH ×2 (08:01→20:40)
[2022-08-31] MEDS ORDERED: Electrolyte Replacement Protocol 1 EACH FS ONE (08:08)
[2022-08-31] MEDS ORDERED: Potassium Chloride 20 MEQ TAB PO SCH ×2 (08:30→13:45)
[2022-08-31] MEDS ORDERED: Electrolyte Replacement Protocol FS PRN (08:30)
[2022-08-31] MEDS ORDERED: Magnesium 2 GM/50 ML(in water) 2 GM in Premix Bag 1 BAG IVPB SCH (09:00)
[2022-08-31] MEDS: ALPRAZolam 0.5 MG TAB PO PRN (09:31)
[2022-08-31] MEDS: Gabapentin 300 MG CAP PO SCH ×3 (09:31→20:40)
[2022-08-31 10:59] LABS: Bacteria/HPF None Seen HPF (None Seen); RBC/HPF 0-3 HPF (0-3); Squamous Epithelial None Seen HPF (0-3); WBC/HPF 0-3 HPF (0-3)
[2022-08-31] MEDS: MESNA IVPB SCH ×4 (11:26→22:36)
[2022-08-31] MEDS: SODIUM CHLORIDE 0.9% IVPB SCH ×5 (11:26→22:36)
[2022-08-31] MEDS: IFOSFAMIDE IVPB SCH (12:01)
[2022-08-31] MEDS: DOXORUBICIN IVPB SCH (12:02)
[2022-08-31] MEDS ORDERED: Morphine ER 15 MG TAB PO PRN (14:35)
[2022-08-31 15:19] LABS: Potassium 3.9 mmol/L (3.5-5.1)
[2022-08-31 15:32] LABS: Magnesium 2.1 mg/dL (1.6-2.6); Phosphorus 2.1 mg/dL (2.3-4.7)
[2022-08-31] MEDS: Sodium Chloride 0.9% 1,000 ML IV SCH (16:41)
[2022-08-31] MEDS: Amlodipine 10 MG TAB PO SCH (20:39)
[2022-08-31] MEDS: Atorvastatin Calcium 20 MG TAB PO SCH (20:39)
[2022-08-31] MEDS: Cyclobenzaprine 10 MG TAB PO PRN (22:35)
[2022-09-01 05:49] LABS: ALT (SGPT) 27 U/L (8-55); AST (SGOT) 21 U/L (5-34); Albumin 3.1 g/dL (3.4-4.8); Alkaline Phosphatase 582 U/L (40-110); Anion Gap 11 mmol/L (10-20); BUN (Urea Nitrogen) 13 mg/dL (8.4-25.7); Bilirubin, Total 0.4 mg/dL (0.2-1.2); Calc. Creatinine Clearance 158 mL/min (70-130); Calcium 8.5 mg/dL (7.8-10.44); Carbon Dioxide 21 mmol/L (23-31); Chloride 113 mmol/L (98-107); Estimated GFR 103; Glucose 158 mg/dL (80-115); Potassium 4.7 mmol/L (3.5-5.1); Protein, Total 5.1 g/dL (5.8-8.1); Sodium 140 mmol/L (136-145)
[2022-09-01 06:20] LABS: Anisocytosis SLIGHT = 6-15 cells (100X) (0-5/hpf); Hemoglobin 7.6 g/dL (14.0-18.0); Hypochromia SLIGHT = 6-15 cells (100X) (0-5/hpf); Lymphocytes 4 % (21-51); MDiff Complete? YES; Mean Corpuscular HGB CONC 31.7 g/dL (32.0-36.0); Mean Corpuscular Hemoglobin 27.2 pg (27.0-31.0); Mean Corpuscular Volume 85.8 fl (78.0-98.0); Mean Platelet Volume 7.5 fL (7.4-10.4); Metamyelocyte 2 % (0-0); Monocytes 2 % (0-10); Myelocyte 1 % (0-0); Neutrophil 91 % (42-75); Platelet Count 736 10x3/uL (130-400); Platelet Morphology Comment Appears Increased; Polychromasia SLIGHT = 2-3 cells (100X) (0-2/hpf); RBC Distribution Width 15.8 % (11.5-14.5); White Blood Cell (WBC) Count 17.8 10x3/uL (4.8-10.8)
[2022-09-01] MEDS: Sodium Chloride 0.9% 1,000 ML IV SCH (07:35)
[2022-09-01] MEDS ORDERED: Magnesium 2 GM/50 ML(in water) 2 GM in Premix Bag 1 BAG IVPB SCH (08:00)
[2022-09-01] MEDS: Cefdinir 300 MG CAP PO SCH ×2 (08:39→20:56)
[2022-09-01] MEDS: Losartan 25 MG TAB PO SCH (08:39)
[2022-09-01] MEDS: Gabapentin 300 MG CAP PO SCH ×3 (08:39→20:57)
[2022-09-01] MEDS: Folic Acid 1 MG TAB PO SCH (08:39)
[2022-09-01] MEDS: ALPRAZolam 0.5 MG TAB PO PRN (08:45)
[2022-09-01] MEDS: MESNA IVPB SCH ×4 (09:37→22:36)
[2022-09-01] MEDS: SODIUM CHLORIDE 0.9% IVPB SCH ×5 (09:37→22:36)
[2022-09-01] MEDS: IFOSFAMIDE IVPB SCH (10:06)
[2022-09-01 10:25] LABS: Bacteria/HPF None Seen HPF (None Seen); RBC/HPF 0-3 HPF (0-3); Squamous Epithelial None Seen HPF (0-3); WBC/HPF 0-3 HPF (0-3)
[2022-09-01] MEDS: DOXORUBICIN IVPB SCH (11:17)
[2022-09-01] MEDS ORDERED: ALPRAZolam 0.5 MG TAB PO PRN (14:58)
[2022-09-01] MEDS: Amlodipine 10 MG TAB PO SCH (20:57)
[2022-09-01] MEDS: Atorvastatin Calcium 20 MG TAB PO SCH (20:57)
[2022-09-01] MEDS: Morphine ER 15 MG TAB PO SCH (20:57)
[2022-09-01] MEDS: Cyclobenzaprine 10 MG TAB PO PRN (21:00)
[2022-09-02] MEDS: Sodium Chloride 0.9% 1,000 ML IV SCH ×3 (02:12→23:07)
[2022-09-02 06:12] LABS: Hemoglobin 7.2 g/dL (14.0-18.0); Mean Corpuscular HGB CONC 31.7 g/dL (32.0-36.0); Mean Corpuscular Hemoglobin 27.4 pg (27.0-31.0); Mean Corpuscular Volume 86.6 fl (78.0-98.0); Mean Platelet Volume 7.8 fL (7.4-10.4); Platelet Count 821 10x3/uL (130-400); RBC Distribution Width 16.3 % (11.5-14.5); Red Blood Cell (RBC) Count 2.61 mill/uL (4.70-6.10); White Blood Cell (WBC) Count 19.3 10x3/uL (4.8-10.8)
[2022-09-02 06:24] LABS: Band 6 % (5-11); Lymphocytes 5 % (21-51); MDiff Complete? YES; Metamyelocyte 1 % (0-0); Monocytes 4 % (0-10); Neutrophil 84 % (42-75); Platelet Morphology Comment Appears Increased; Polychromasia SLIGHT = 2-3 cells (100X) (0-2/hpf)
[2022-09-02 06:27] LABS: Magnesium 2.2 mg/dL (1.6-2.6)
[2022-09-02 06:30] LABS: ALT (SGPT) 24 U/L (8-55); AST (SGOT) 19 U/L (5-34); Albumin 2.8 g/dL (3.4-4.8); Alkaline Phosphatase 460 U/L (40-110); Anion Gap 11 mmol/L (10-20); BUN (Urea Nitrogen) 17 mg/dL (8.4-25.7); Bilirubin, Total 0.4 mg/dL (0.2-1.2); Calc. Creatinine Clearance 143 mL/min (70-130); Calcium 8.6 mg/dL (7.8-10.44); Carbon Dioxide 20 mmol/L (23-31); Chloride 115 mmol/L (98-107); Estimated GFR 100; Globulin 2.6 g/dL (2.4-3.5); Glucose 121 mg/dL (80-115); Protein, Total 5.4 g/dL (5.8-8.1); Sodium 142 mmol/L (136-145)
[2022-09-02] MEDS: Cefdinir 300 MG CAP PO SCH ×2 (08:36→20:00)
[2022-09-02] MEDS: Folic Acid 1 MG TAB PO SCH (08:36)
[2022-09-02] MEDS: ALPRAZolam 0.5 MG TAB PO SCH (08:36)
[2022-09-02] MEDS: Gabapentin 300 MG CAP PO SCH ×3 (08:37→20:00)
[2022-09-02] MEDS: Losartan 25 MG TAB PO SCH (08:37)
[2022-09-02] MEDS: Morphine ER 15 MG TAB PO SCH ×2 (08:43→20:01)
[2022-09-02 09:12] LABS: Bacteria/HPF None Seen HPF (None Seen); RBC/HPF 0-3 HPF (0-3); Squamous Epithelial None Seen HPF (0-3); WBC/HPF 0-3 HPF (0-3)
[2022-09-02] MEDS: SODIUM CHLORIDE 0.9% IVPB SCH ×5 (10:30→23:04)
[2022-09-02] MEDS: MESNA IVPB SCH ×4 (10:30→23:04)
[2022-09-02] MEDS: DOXORUBICIN IVPB SCH (11:40)
[2022-09-02] MEDS: IFOSFAMIDE IVPB SCH (11:40)
[2022-09-02] MEDS: Atorvastatin Calcium 20 MG TAB PO SCH (20:00)
[2022-09-02] MEDS: Amlodipine 10 MG TAB PO SCH (20:00)
[2022-09-02] MEDS: Cyclobenzaprine 10 MG TAB PO PRN (22:23)
[2022-09-03 04:06] LABS: Bacteria/HPF None Seen HPF (None Seen); RBC/HPF 0-3 HPF (0-3); WBC/HPF 0-3 HPF (0-3)
[2022-09-03 04:07] LABS: Squamous Epithelial 0-3 HPF (0-3)
[2022-09-03 05:26] LABS: #Lymphocytes 0.5 thou/uL (1.20-3.40); #Monocytes 1.4 thou/uL (0.11-0.59); #Neutrophils 9.8 thou/uL (1.40-6.50); %Basophils 0.1 % (0.0-1.0); %Eosinophils 0.1 % (0.0-10.0); %Lymphocytes 4.4 % (21.0-51.0); %Monocytes 11.8 % (0.0-10.0); %Neutrophils 83.6 % (42.0-75.0); Hemoglobin 7.5 g/dL (14.0-18.0); Mean Corpuscular HGB CONC 31.6 g/dL (32.0-36.0); Mean Corpuscular Hemoglobin 27.2 pg (27.0-31.0); Mean Platelet Volume 7.6 fL (7.4-10.4); Platelet Count 758 10x3/uL (130-400); RBC Distribution Width 16.5 % (11.5-14.5); Red Blood Cell (RBC) Count 2.75 mill/uL (4.70-6.10); White Blood Cell (WBC) Count 11.7 10x3/uL (4.8-10.8)
[2022-09-03 05:52] LABS: ALT (SGPT) 19 U/L (8-55); AST (SGOT) 16 U/L (5-34); Albumin 3.1 g/dL (3.4-4.8); Alkaline Phosphatase 388 U/L (40-110); Anion Gap 10 mmol/L (10-20); BUN (Urea Nitrogen) 16 mg/dL (8.4-25.7); Bilirubin, Total 0.5 mg/dL (0.2-1.2); Calc. Creatinine Clearance 175 mL/min (70-130); Calcium 8.5 mg/dL (7.8-10.44); Carbon Dioxide 19 mmol/L (23-31); Chloride 113 mmol/L (98-107); Estimated GFR 106; Globulin 2.3 g/dL (2.4-3.5); Glucose 87 mg/dL (80-115); Magnesium 1.9 mg/dL (1.6-2.6); Potassium 3.4 mmol/L (3.5-5.1); Protein, Total 5.4 g/dL (5.8-8.1); Sodium 139 mmol/L (136-145)
[2022-09-03] MEDS ORDERED: Magnesium 2 GM/50 ML(in water) 2 GM in Premix Bag 1 BAG IVPB SCH (08:00)
[2022-09-03] MEDS ORDERED: Potassium Chloride 20 MEQ TAB PO SCH ×2 (08:00→09:30)
[2022-09-03] MEDS: ALPRAZolam 0.5 MG TAB PO SCH (08:00)
[2022-09-03] MEDS: Losartan 25 MG TAB PO SCH (08:00)
[2022-09-03] MEDS: Gabapentin 300 MG CAP PO SCH ×3 (08:00→22:53)
[2022-09-03] MEDS: Folic Acid 1 MG TAB PO SCH (08:00)
[2022-09-03] MEDS: Cefdinir 300 MG CAP PO SCH ×2 (08:00→22:52)
[2022-09-03] MEDS: Morphine ER 15 MG TAB PO SCH ×2 (08:01→23:03)
[2022-09-03] MEDS: MESNA IVPB SCH ×4 (09:30→18:28)
[2022-09-03] MEDS: SODIUM CHLORIDE 0.9% IVPB SCH ×4 (09:30→18:28)
[2022-09-03] MEDS: IFOSFAMIDE IVPB SCH (09:44)
[2022-09-03] MEDS ORDERED: Melatonin 3 MG TAB PO PRN (10:36)
[2022-09-03] MEDS: Sodium Chloride 0.9% 1,000 ML IV SCH ×2 (11:32→22:52)
[2022-09-03] MEDS: Cyclobenzaprine 10 MG TAB PO PRN (12:37)
[2022-09-03] MEDS ORDERED: ALPRAZolam 0.5 MG TAB PO SCH (15:00)
[2022-09-03] MEDS ORDERED: ALPRAZolam 0.5 MG TAB PO PRN (15:55)
[2022-09-03] MEDS ORDERED: Temazepam 15 MG CAP PO PRN (20:00)
[2022-09-03] MEDS: Amlodipine 10 MG TAB PO SCH (22:52)
[2022-09-03] MEDS: Atorvastatin Calcium 20 MG TAB PO SCH (22:53)
[2022-09-04 00:47] VITALS: TEMP 97.9
[2022-09-04 05:22] LABS: #Lymphocytes 0.5 thou/uL (1.20-3.40); #Monocytes 0.3 thou/uL (0.11-0.59); #Neutrophils 5.6 thou/uL (1.40-6.50); %Eosinophils 0.1 % (0.0-10.0); %Lymphocytes 7.5 % (21.0-51.0); %Monocytes 4.3 % (0.0-10.0); %Neutrophils 88.2 % (42.0-75.0); Hemoglobin 7.4 g/dL (14.0-18.0); Mean Corpuscular HGB CONC 32.6 g/dL (32.0-36.0); Mean Corpuscular Volume 85.8 fl (78.0-98.0); Mean Platelet Volume 7.6 fL (7.4-10.4); Platelet Count 745 10x3/uL (130-400); RBC Distribution Width 16.4 % (11.5-14.5); Red Blood Cell (RBC) Count 2.63 mill/uL (4.70-6.10); White Blood Cell (WBC) Count 6.3 10x3/uL (4.8-10.8)
[2022-09-04 05:32] LABS: Phosphorus 3.2 mg/dL (2.3-4.7)
[2022-09-04 05:38] LABS: ALT (SGPT) 22 U/L (8-55); AST (SGOT) 20 U/L (5-34); Albumin 3.2 g/dL (3.4-4.8); Alkaline Phosphatase 359 U/L (40-110); Anion Gap 10 mmol/L (10-20); BUN (Urea Nitrogen) 17 mg/dL (8.4-25.7); Bilirubin, Total 0.6 mg/dL (0.2-1.2); Calc. Creatinine Clearance 156 mL/min (70-130); Calcium 8.8 mg/dL (7.8-10.44); Carbon Dioxide 19 mmol/L (23-31); Chloride 114 mmol/L (98-107); Estimated GFR 103; Globulin 2.4 g/dL (2.4-3.5); Glucose 74 mg/dL (80-115); Magnesium 2.2 mg/dL (1.6-2.6); Potassium 3.6 mmol/L (3.5-5.1); Protein, Total 5.6 g/dL (5.8-8.1); Sodium 139 mmol/L (136-145)
[2022-09-04 06:34] LABS: Bacteria/HPF None Seen HPF (None Seen); RBC/HPF 0-3 HPF (0-3); Squamous Epithelial None Seen HPF (0-3); WBC/HPF 0-3 HPF (0-3)
[2022-09-04 07:55] VITALS: BP 145/76
[2022-09-04] MEDS: Folic Acid 1 MG TAB PO SCH (09:31)
[2022-09-04] MEDS: Gabapentin 300 MG CAP PO SCH (09:31)
[2022-09-04] MEDS: Cefdinir 300 MG CAP PO SCH (09:31)
[2022-09-04] MEDS: Losartan 25 MG TAB PO SCH (09:31)
[2022-09-04] MEDS: Morphine ER 15 MG TAB PO SCH (09:32)
[2022-09-04] MEDS ORDERED: PEGFILGRASTIM-JMDB 6 MG/0.6 ML SYRINGE SQ SCH (10:30)
[2022-09-05] MEDS ORDERED: PEGFILGRASTIM-JMDB 6 MG/0.6 ML SYRINGE SQ SCH (00:01)
== END 2022-09-04 11:45 | disposition home or self-care (01) | DRG 847 ==
LOC: MSONC 13:48 → INTOOBSV 13:48 → MSONC 21:27 → OBSVTOIN 08-31 15:38
PROVIDERS: ADMIT Hospitalist; ATTEND Internal Medicine
DX: Z51.11 Encounter for antineoplastic chemotherapy (principal); C49.3 Malignant neoplasm of connective and soft tissue of thorax; C79.51 Secondary malignant neoplasm of bone; K21.9 Gastro-esophageal reflux disease without esophagitis; G89.29 Other chronic pain; D72.829 Elevated white blood cell count, unspecified; D63.0 Anemia in neoplastic disease; E78.5 Hyperlipidemia, unspecified; I10 Essential (primary) hypertension; Z90.89 Acquired absence of other organs; Z88.0 Allergy status to penicillin; Z79.899 Other long term (current) drug therapy; Z82.49 Family history of ischemic heart disease and other diseases of the circulatory system; Z86.718 Personal history of other venous thrombosis and embolism; Z80.3 Family history of malignant neoplasm of breast
CPT/HCPCS: 36415; 36416; 71045; 76700; 80053; 81015; 83735; 84100; 84145; 85025; 87040; J1100; J1453; J1642; J2405; J2469; J3475; J3490; J7050; J9000; J9208; J9209; Q5108

== ENCOUNTER 2022-09-09 12:45 | Outpatient (CLI) | payer OTHER | END 2022-09-09 12:46 | disposition home or self-care (01) | LOC: RAD 12:45 | PROVIDERS: ATTEND Internal Medicine | DX: C49.9 Malignant neoplasm of connective and soft tissue, unspecified (principal); R05.9 Cough, unspecified; J18.1 Lobar pneumonia, unspecified organism; J90 Pleural effusion, not elsewhere classified; R91.8 Other nonspecific abnormal finding of lung field | CPT/HCPCS: 71046 ==

== ENCOUNTER 2022-09-16 10:43 | Day surgery (SDC) | payer OTHER ==
[2022-09-16] MEDS ORDERED: diphenhydrAMINE 25 MG CAP PO SCH (12:00)
[2022-09-16] MEDS ORDERED: Acetaminophen 500 MG TAB PO SCH (12:00)
[2022-09-16] MEDS ORDERED: Acetaminophen 500 MG TAB ONE (12:18)
[2022-09-16 12:58] VITALS: TEMP 98.3
[2022-09-16 15:35] VITALS: BP 112/61
== END 2022-09-16 15:15 | disposition home or self-care (01) ==
LOC: ONC/OP 10:43
PROVIDERS: ATTEND Internal Medicine
PROC: 30233N1 Transfusion of Nonautologous Red Blood Cells into Peripheral Vein, Percutaneous Approach (ICD-10-PCS; principal; 2022-09-16)
DX: D64.9 Anemia, unspecified (principal); D69.6 Thrombocytopenia, unspecified; Z88.0 Allergy status to penicillin
CPT/HCPCS: 36415; 36430; 80053; 86850; 86900; 86901; P9016

== ENCOUNTER 2022-09-20 11:12 | Inpatient (IN) | payer OTHER ==
[2022-09-20] MEDS ORDERED: PALONOSETRON HCL 0.05 MG/ML 5 ML VIAL IVP SCH (12:00)
[2022-09-20 12:02] VITALS: BMI 33.6
[2022-09-20] MEDS ORDERED: Bisacodyl 5 MG TAB PO PRN (12:04)
[2022-09-20] MEDS ORDERED: Acetaminophen 325 MG TAB PO PRN (12:04)
[2022-09-20 12:16] LABS: Hemoglobin 7.5 g/dL (14.0-18.0); Mean Corpuscular HGB CONC 33.4 g/dL (32.0-36.0); Mean Corpuscular Hemoglobin 27.6 pg (27.0-31.0); Mean Corpuscular Volume 82.6 fl (78.0-98.0); Mean Platelet Volume 8.5 fL (7.4-10.4); Platelet Count 294 10x3/uL (130-400); RBC Distribution Width 16.5 % (11.5-14.5); Red Blood Cell (RBC) Count 2.73 mill/uL (4.70-6.10)
[2022-09-20 12:30] LABS: Band 18 % (5-11); Lymphocytes 2 % (21-51); MDiff Complete? YES; Metamyelocyte 2 % (0-0); Monocytes 5 % (0-10); Myelocyte 3 % (0-0); Neutrophil 70 % (42-75); Nucleated RBC 2 % (0); Polychromasia SLIGHT = 2-3 cells (100X) (0-2/hpf); White Blood Cell (WBC) Count 17.1 10x3/uL (4.8-10.8)
[2022-09-20 12:32] LABS: ALT (SGPT) 16 U/L (8-55); AST (SGOT) 16 U/L (5-34); Albumin 3.6 g/dL (3.4-4.8); Alkaline Phosphatase 387 U/L (40-110); Anion Gap 12 mmol/L (10-20); BUN (Urea Nitrogen) 16 mg/dL (8.4-25.7); Bilirubin, Total 0.2 mg/dL (0.2-1.2); Calc. Creatinine Clearance 119 mL/min (70-130); Calcium 9.1 mg/dL (7.8-10.44); Carbon Dioxide 23 mmol/L (23-31); Chloride 108 mmol/L (98-107); Estimated GFR 88; Globulin 2.7 g/dL (2.4-3.5); Glucose 120 mg/dL (80-115); Protein, Total 6.3 g/dL (5.8-8.1); Sodium 139 mmol/L (136-145)
[2022-09-20 12:43] LABS: Bacteria/HPF None Seen HPF (None Seen); Bilirubin Negative (Negative); Blood, Urine Negative (Negative); Clarity Clear (Clear); Glucose, Urine (Dipstick) 300 mg/dL (Negative); Ketone, Urine Negative (Negative); Leukocyte Negative Leu/uL (Negative); Nitrite Negative (Negative); Protein, Urine (Dipstick) 10 mg/dL (Neg-Trace); RBC/HPF 0-3 HPF (0-3); Specific Gravity, Urine 1.024 (1.002-1.036); Squamous Epithelial None Seen HPF (0-3); Urobilinogen Normal mg/dL (Less than 2); WBC/HPF 0-3 HPF (0-3)
[2022-09-20] MEDS ORDERED: Ondansetron ODT 4 MG TAB PO PRN (12:59)
[2022-09-20] MEDS: Gabapentin 300 MG CAP PO SCH ×2 (13:57→20:08)
[2022-09-20] MEDS: SODIUM CHLORIDE 0.9% IVPB SCH ×4 (14:47→23:04)
[2022-09-20] MEDS: MESNA IVPB SCH ×3 (14:47→23:04)
[2022-09-20] MEDS: IFOSFAMIDE IVPB SCH (15:23)
[2022-09-20] MEDS: DOXORUBICIN IVPB SCH (15:24)
[2022-09-20] MEDS: Cyclobenzaprine 10 MG TAB PO PRN (18:44)
[2022-09-20] MEDS: Atorvastatin Calcium 20 MG TAB PO SCH (20:08)
[2022-09-20] MEDS: Amlodipine 10 MG TAB PO SCH (20:08)
[2022-09-20] MEDS: oxyCODONE 5 MG TAB PO PRN (20:10)
[2022-09-20] MEDS: Morphine ER 15 MG TAB PO SCH (20:22)
[2022-09-20] MEDS ORDERED: guaiFENesin/Codeine 200 mg/20 mg 10 ml Cup PO PRN (20:28)
[2022-09-20] MEDS ORDERED: Benzonatate 100 MG CAP PO PRN (20:41)
[2022-09-20] MEDS: Sodium Chloride 0.9% 1,000 ML IV SCH (21:00)
[2022-09-21] MEDS: Sodium Chloride 0.9% 1,000 ML IV SCH ×3 (01:45→12:09)
[2022-09-21] MEDS: SODIUM CHLORIDE 0.9% IVPB SCH ×6 (03:03→23:03)
[2022-09-21] MEDS: MESNA IVPB SCH ×5 (03:03→23:03)
[2022-09-21] MEDS: oxyCODONE 5 MG TAB PO PRN ×2 (03:12→11:16)
[2022-09-21 06:01] LABS: ALT (SGPT) 15 U/L (8-55); AST (SGOT) 11 U/L (5-34); Albumin 3.3 g/dL (3.4-4.8); Alkaline Phosphatase 359 U/L (40-110); Anion Gap 11 mmol/L (10-20); BUN (Urea Nitrogen) 18 mg/dL (8.4-25.7); Bilirubin, Total 0.2 mg/dL (0.2-1.2); Calc. Creatinine Clearance 139 mL/min (70-130); Calcium 8.9 mg/dL (7.8-10.44); Carbon Dioxide 23 mmol/L (23-31); Chloride 110 mmol/L (98-107); Estimated GFR 99; Globulin 2.6 g/dL (2.4-3.5); Glucose 148 mg/dL (80-115); Magnesium 1.9 mg/dL (1.6-2.6); Potassium 4.2 mmol/L (3.5-5.1); Protein, Total 5.9 g/dL (5.8-8.1); Sodium 140 mmol/L (136-145); Uric Acid 3.8 mg/dL (3.5-7.2)
[2022-09-21 06:10] LABS: Band 19 % (5-11); Hypochromia SLIGHT = 6-15 cells (100X) (0-5/hpf); Lymphocytes 3 % (21-51); MDiff Complete? YES; Mean Corpuscular HGB CONC 32.5 g/dL (32.0-36.0); Mean Corpuscular Hemoglobin 27.1 pg (27.0-31.0); Mean Corpuscular Volume 83.4 fl (78.0-98.0); Monocytes 6 % (0-10); Neutrophil 72 % (42-75); Platelet Count 300 10x3/uL (130-400); Platelet Morphology Comment Appears Adequate; RBC Distribution Width 16.6 % (11.5-14.5); Red Blood Cell (RBC) Count 2.58 mill/uL (4.70-6.10); White Blood Cell (WBC) Count 18.5 10x3/uL (4.8-10.8)
[2022-09-21] MEDS: Cyclobenzaprine 10 MG TAB PO PRN ×2 (07:04→21:09)
[2022-09-21 08:48] LABS: Bacteria/HPF None Seen HPF (None Seen); Bilirubin Negative (Negative); Blood, Urine Negative (Negative); Clarity Clear (Clear); Glucose, Urine (Dipstick) Greater than 1000 mg/dL (Negative); Ketone, Urine Greater than 150 mg/dL (Negative); Leukocyte Negative Leu/uL (Negative); Nitrite Negative (Negative); Protein, Urine (Dipstick) Negative (Neg-Trace); RBC/HPF 0-3 HPF (0-3); Specific Gravity, Urine 1.024 (1.002-1.036); Squamous Epithelial 0-3 HPF (0-3); Urobilinogen Normal mg/dL (Less than 2); WBC/HPF 0-3 HPF (0-3)
[2022-09-21] MEDS ORDERED: Benzonatate 100 MG CAP PO PRN (09:45)
[2022-09-21] MEDS: Folic Acid 1 MG TAB PO SCH (09:57)
[2022-09-21] MEDS: Gabapentin 300 MG CAP PO SCH ×3 (09:57→20:57)
[2022-09-21] MEDS: Losartan 25 MG TAB PO SCH (09:59)
[2022-09-21] MEDS: ALPRAZolam 0.5 MG TAB PO PRN (09:59)
[2022-09-21] MEDS: Morphine ER 15 MG TAB PO SCH ×2 (09:59→20:58)
[2022-09-21] MEDS: IFOSFAMIDE IVPB SCH (12:57)
[2022-09-21] MEDS: DOXORUBICIN IVPB SCH (14:54)
[2022-09-21] MEDS ORDERED: oxyCODONE 5 MG TAB PO SCH (17:45)
[2022-09-21] MEDS: Amlodipine 10 MG TAB PO SCH (20:59)
[2022-09-21] MEDS: Atorvastatin Calcium 20 MG TAB PO SCH (20:59)
[2022-09-22] MEDS: Sodium Chloride 0.9% 1,000 ML IV SCH ×4 (03:08→20:16)
[2022-09-22] MEDS: oxyCODONE 5 MG TAB PO PRN ×2 (05:54→20:06)
[2022-09-22 06:19] LABS: Bacteria/HPF None Seen HPF (None Seen); Bilirubin Negative (Negative); Blood, Urine Negative (Negative); Clarity Clear (Clear); Glucose, Urine (Dipstick) Greater than 1000 mg/dL (Negative); Ketone, Urine Greater than 150 mg/dL (Negative); Leukocyte Negative Leu/uL (Negative); Nitrite Negative (Negative); Protein, Urine (Dipstick) Negative (Neg-Trace); RBC/HPF None Seen HPF (0-3); Specific Gravity, Urine 1.019 (1.002-1.036); Squamous Epithelial None Seen HPF (0-3); Urobilinogen Normal mg/dL (Less than 2); WBC/HPF 0-3 HPF (0-3); pH, Urine 5.5 (5.0-9.0)
[2022-09-22 06:37] LABS: ALT (SGPT) 15 U/L (8-55); AST (SGOT) 12 U/L (5-34); Albumin 3.2 g/dL (3.4-4.8); Alkaline Phosphatase 342 U/L (40-110); Anion Gap 11 mmol/L (10-20); BUN (Urea Nitrogen) 20 mg/dL (8.4-25.7); Bilirubin, Total 0.3 mg/dL (0.2-1.2); Calc. Creatinine Clearance 156 mL/min (70-130); Calcium 9.1 mg/dL (7.8-10.44); Carbon Dioxide 22 mmol/L (23-31); Chloride 113 mmol/L (98-107); Estimated GFR 103; Globulin 2.6 g/dL (2.4-3.5); Glucose 93 mg/dL (80-115); Potassium 3.8 mmol/L (3.5-5.1); Protein, Total 5.8 g/dL (5.8-8.1); Sodium 142 mmol/L (136-145); Uric Acid 3.5 mg/dL (3.5-7.2)
[2022-09-22 06:41] LABS: Hemoglobin 7.3 g/dL (14.0-18.0); Mean Corpuscular Volume 84.4 fl (78.0-98.0); Platelet Count 421 10x3/uL (130-400); RBC Distribution Width 17.7 % (11.5-14.5); Red Blood Cell (RBC) Count 2.69 mill/uL (4.70-6.10); White Blood Cell (WBC) Count 20.3 10x3/uL (4.8-10.8)
[2022-09-22 06:49] LABS: Band 15 % (5-11); Hypochromia SLIGHT = 6-15 cells (100X) (0-5/hpf); Lymphocytes 9 % (21-51); MDiff Complete? YES; Monocytes 12 % (0-10); Neutrophil 64 % (42-75); Platelet Morphology Comment Appears Increased
[2022-09-22] MEDS: Folic Acid 1 MG TAB PO SCH (08:28)
[2022-09-22] MEDS: Losartan 25 MG TAB PO SCH (08:28)
[2022-09-22] MEDS: Gabapentin 300 MG CAP PO SCH ×3 (08:29→20:08)
[2022-09-22] MEDS: ALPRAZolam 0.5 MG TAB PO PRN (08:31)
[2022-09-22] MEDS: Morphine ER 15 MG TAB PO SCH ×2 (09:43→20:08)
[2022-09-22] MEDS: SODIUM CHLORIDE 0.9% IVPB SCH ×4 (12:28→19:57)
[2022-09-22] MEDS: MESNA IVPB SCH ×3 (12:28→19:57)
[2022-09-22] MEDS: IFOSFAMIDE IVPB SCH (13:16)
[2022-09-22] MEDS: DOXORUBICIN IVPB SCH (15:20)
[2022-09-22] MEDS: Atorvastatin Calcium 20 MG TAB PO SCH (20:07)
[2022-09-22] MEDS: Amlodipine 10 MG TAB PO SCH (20:07)
[2022-09-23] MEDS: MESNA IVPB SCH ×4 (00:02→23:08)
[2022-09-23] MEDS: SODIUM CHLORIDE 0.9% IVPB SCH ×4 (00:02→23:08)
[2022-09-23] MEDS: oxyCODONE 5 MG TAB PO PRN ×3 (04:35→23:10)
[2022-09-23 04:42] LABS: #Lymphocytes 0.4 thou/uL (1.20-3.40); #Monocytes 1.2 thou/uL (0.11-0.59); #Neutrophils 7.3 thou/uL (1.40-6.50); %Eosinophils 0.1 % (0.0-10.0); %Lymphocytes 4.7 % (21.0-51.0); %Monocytes 13.8 % (0.0-10.0); %Neutrophils 81.4 % (42.0-75.0); Hemoglobin 6.9 g/dL (14.0-18.0); Mean Corpuscular Hemoglobin 27.2 pg (27.0-31.0); Mean Corpuscular Volume 84.9 fl (78.0-98.0); Mean Platelet Volume 7.9 fL (7.4-10.4); Platelet Count 348 10x3/uL (130-400); RBC Distribution Width 17.4 % (11.5-14.5); Red Blood Cell (RBC) Count 2.54 mill/uL (4.70-6.10)
[2022-09-23 05:01] LABS: ALT (SGPT) 13 U/L (8-55); AST (SGOT) 10 U/L (5-34); Albumin 3.1 g/dL (3.4-4.8); Alkaline Phosphatase 270 U/L (40-110); Anion Gap 12 mmol/L (10-20); BUN (Urea Nitrogen) 17 mg/dL (8.4-25.7); Bilirubin, Total 0.3 mg/dL (0.2-1.2); Calc. Creatinine Clearance 169 mL/min (70-130); Calcium 8.7 mg/dL (7.8-10.44); Carbon Dioxide 20 mmol/L (23-31); Chloride 117 mmol/L (98-107); Estimated GFR 105; Globulin 2.4 g/dL (2.4-3.5); Glucose 92 mg/dL (80-115); Potassium 3.6 mmol/L (3.5-5.1); Protein, Total 5.5 g/dL (5.8-8.1); Sodium 145 mmol/L (136-145); Uric Acid 3.9 mg/dL (3.5-7.2)
[2022-09-23 06:20] LABS: Bacteria/HPF None Seen HPF (None Seen); Bilirubin Negative (Negative); Blood, Urine Negative (Negative); Clarity Clear (Clear); Glucose, Urine (Dipstick) 500 mg/dL (Negative); Ketone, Urine Greater than 150 mg/dL (Negative); Leukocyte Negative Leu/uL (Negative); Nitrite Negative (Negative); Protein, Urine (Dipstick) 10 mg/dL (Neg-Trace); RBC/HPF 0-3 HPF (0-3); Specific Gravity, Urine 1.017 (1.002-1.036); Squamous Epithelial 0-3 HPF (0-3); Urobilinogen Normal mg/dL (Less than 2); WBC/HPF 0-3 HPF (0-3); pH, Urine 6.5 (5.0-9.0)
[2022-09-23] MEDS: Losartan 25 MG TAB PO SCH (08:33)
[2022-09-23] MEDS: ALPRAZolam 0.5 MG TAB PO PRN (08:33)
[2022-09-23] MEDS: Sodium Chloride 0.9% 1,000 ML IV SCH ×2 (08:33→23:08)
[2022-09-23] MEDS: Cyclobenzaprine 10 MG TAB PO PRN (08:33)
[2022-09-23] MEDS: Folic Acid 1 MG TAB PO SCH (08:34)
[2022-09-23] MEDS: Gabapentin 300 MG CAP PO SCH ×3 (08:34→22:14)
[2022-09-23] MEDS: Morphine ER 15 MG TAB PO SCH ×2 (09:16→22:21)
[2022-09-23] MEDS: IFOSFAMIDE IVPB SCH (12:32)
[2022-09-23] MEDS ORDERED: ALPRAZolam 0.5 MG TAB PO PRN (15:30)
[2022-09-23] MEDS: Amlodipine 10 MG TAB PO SCH (22:13)
[2022-09-23] MEDS: Atorvastatin Calcium 20 MG TAB PO SCH (22:20)
[2022-09-24] MEDS: Ondansetron PF 4 MG/2 ML Vial IVP PRN ×2 (02:05→22:01)
[2022-09-24 05:48] LABS: #Lymphocytes 0.4 thou/uL (1.20-3.40); #Monocytes 0.5 thou/uL (0.11-0.59); %Lymphocytes 5.8 % (21.0-51.0); %Monocytes 7.7 % (0.0-10.0); %Neutrophils 86.5 % (42.0-75.0); Hemoglobin 7.8 g/dL (14.0-18.0); Mean Corpuscular HGB CONC 33.8 g/dL (32.0-36.0); Mean Corpuscular Volume 85.6 fl (78.0-98.0); Mean Platelet Volume 7.7 fL (7.4-10.4); Platelet Count 323 10x3/uL (130-400)
[2022-09-24 05:51] LABS: Bacteria/HPF None Seen HPF (None Seen); Bilirubin Negative (Negative); Blood, Urine Negative (Negative); Clarity Clear (Clear); Glucose, Urine (Dipstick) 70 mg/dL (Negative); Ketone, Urine 100 mg/dL (Negative); Leukocyte Negative Leu/uL (Negative); Nitrite Negative (Negative); Protein, Urine (Dipstick) 30 mg/dL (Neg-Trace); RBC/HPF None Seen HPF (0-3); Squamous Epithelial None Seen HPF (0-3); Urobilinogen Normal mg/dL (Less than 2); WBC/HPF 0-3 HPF (0-3); pH, Urine 7.5 (5.0-9.0)
[2022-09-24 06:07] LABS: ALT (SGPT) 16 U/L (8-55); AST (SGOT) 15 U/L (5-34); Albumin 3.1 g/dL (3.4-4.8); Alkaline Phosphatase 228 U/L (40-110); Anion Gap 7 mmol/L (10-20); BUN (Urea Nitrogen) 16 mg/dL (8.4-25.7); Bilirubin, Total 0.4 mg/dL (0.2-1.2); Calc. Creatinine Clearance 158 mL/min (70-130); Calcium 8.7 mg/dL (7.8-10.44); Carbon Dioxide 19 mmol/L (23-31); Chloride 118 mmol/L (98-107); Estimated GFR 103; Globulin 2.3 g/dL (2.4-3.5); Glucose 79 mg/dL (80-115); Potassium 3.4 mmol/L (3.5-5.1); Protein, Total 5.4 g/dL (5.8-8.1); Sodium 141 mmol/L (136-145); Uric Acid 3.5 mg/dL (3.5-7.2)
[2022-09-24] MEDS ORDERED: Potassium Bicarbonate/Cit Ac 20 MEQ TAB PO SCH (08:15)
[2022-09-24] MEDS: Folic Acid 1 MG TAB PO SCH (09:09)
[2022-09-24] MEDS: Gabapentin 300 MG CAP PO SCH ×3 (09:09→21:15)
[2022-09-24] MEDS: Losartan 25 MG TAB PO SCH (09:10)
[2022-09-24] MEDS: Sodium Bicarbonate Tab 325 MG TAB PO SCH ×3 (09:11→21:15)
[2022-09-24] MEDS: Lactated Ringer's 1,000 ML IV SCH ×2 (09:15→18:23)
[2022-09-24] MEDS: Morphine ER 15 MG TAB PO SCH ×2 (10:24→21:15)
[2022-09-24] MEDS ORDERED: PEGFILGRASTIM-JMDB 6 MG/0.6 ML SYRINGE SQ SCH (17:00)
[2022-09-24] MEDS: Atorvastatin Calcium 20 MG TAB PO SCH (21:15)
[2022-09-24] MEDS: Amlodipine 10 MG TAB PO SCH (21:15)
[2022-09-24] MEDS: oxyCODONE 5 MG TAB PO PRN (22:02)
[2022-09-25] MEDS ORDERED: PEGFILGRASTIM-JMDB 6 MG/0.6 ML SYRINGE SQ SCH (00:01)
[2022-09-25] MEDS: Lactated Ringer's 1,000 ML IV SCH (05:27)
[2022-09-25 06:10] LABS: Uric Acid 3.5 mg/dL (3.5-7.2)
[2022-09-25] MEDS: Morphine ER 15 MG TAB PO SCH (08:23)
[2022-09-25] MEDS: Sodium Bicarbonate Tab 325 MG TAB PO SCH (08:23)
[2022-09-25] MEDS: Gabapentin 300 MG CAP PO SCH (08:23)
[2022-09-25] MEDS: Losartan 25 MG TAB PO SCH (08:24)
[2022-09-25] MEDS: Folic Acid 1 MG TAB PO SCH (08:25)
[2022-09-25 08:48] LABS: Bacteria/HPF None Seen HPF (None Seen); Bilirubin Negative (Negative); Blood, Urine Trace (Negative); Clarity Clear (Clear); Glucose, Urine (Dipstick) Normal (Negative); Ketone, Urine Negative (Negative); Leukocyte Negative Leu/uL (Negative); Nitrite Negative (Negative); Protein, Urine (Dipstick) 20 mg/dL (Neg-Trace); RBC/HPF 0-3 HPF (0-3); Specific Gravity, Urine 1.006 (1.002-1.036); Squamous Epithelial None Seen HPF (0-3); Urobilinogen Normal mg/dL (Less than 2); WBC/HPF 0-3 HPF (0-3); pH, Urine 7.5 (5.0-9.0)
[2022-09-25 14:19] VITALS: BP 162/76; TEMP 98.4
== END 2022-09-25 14:49 | disposition home or self-care (01) | DRG 846 ==
LOC: MSONC 11:12
PROVIDERS: ADMIT Internal Medicine; ATTEND Hospitalist
PROC: 3E03305 Introduction of Other Antineoplastic into Peripheral Vein, Percutaneous Approach (ICD-10-PCS; 2022-09-21)
PROC: 30233N1 Transfusion of Nonautologous Red Blood Cells into Peripheral Vein, Percutaneous Approach (ICD-10-PCS; principal; 2022-09-23)
DX: Z51.11 Encounter for antineoplastic chemotherapy (principal); D61.810 Antineoplastic chemotherapy induced pancytopenia; C49.9 Malignant neoplasm of connective and soft tissue, unspecified; C78.00 Secondary malignant neoplasm of unspecified lung; C79.51 Secondary malignant neoplasm of bone; E87.20 Acidosis, unspecified; I10 Essential (primary) hypertension; E78.5 Hyperlipidemia, unspecified; K21.9 Gastro-esophageal reflux disease without esophagitis; T45.1X5A Adverse effect of antineoplastic and immunosuppressive drugs, initial encounter; Z86.718 Personal history of other venous thrombosis and embolism; Z88.0 Allergy status to penicillin; Z79.899 Other long term (current) drug therapy
CPT/HCPCS: 36430; 80053; 81001; 83615; 83735; 84550; 85025; 86850; 86900; 86901; 93005; 93010; J1100; J1453; J1642; J2405; J2469; J3490; J7050; J7120; J9000; J9208; J9209; P9016; Q5108

== ENCOUNTER 2022-09-30 11:45 | Day surgery (SDC) | payer OTHER ==
[2022-09-30] MEDS ORDERED: diphenhydrAMINE 25 MG CAP PO SCH (12:15)
[2022-09-30] MEDS ORDERED: Acetaminophen 500 MG TAB PO SCH (12:15)
[2022-09-30] MEDS ORDERED: Acetaminophen 500 MG TAB ONE (12:53)
[2022-09-30] MEDS ORDERED: diphenhydrAMINE 25 MG CAP ONE (12:53)
[2022-09-30 18:26] VITALS: BP 123/69; TEMP 98.2
[2022-09-30 19:07] LABS: Hemoglobin 7.6 g/dL (14.0-18.0); Mean Corpuscular HGB CONC 33.9 g/dL (32.0-36.0); Mean Corpuscular Hemoglobin 27.5 pg (27.0-31.0); Mean Corpuscular Volume 81.3 fl (78.0-98.0); Platelet Count 21 10x3/uL (130-400); RBC Distribution Width 16.1 % (11.5-14.5); Red Blood Cell (RBC) Count 2.77 mill/uL (4.70-6.10); White Blood Cell (WBC) Count 0.1 10x3/uL (4.8-10.8)
== END 2022-09-30 18:34 | disposition home or self-care (01) ==
LOC: ONC/OP 11:45
PROVIDERS: ATTEND Internal Medicine
PROC: 30233N1 Transfusion of Nonautologous Red Blood Cells into Peripheral Vein, Percutaneous Approach (ICD-10-PCS; principal; 2022-09-30)
DX: D64.9 Anemia, unspecified (principal); D69.6 Thrombocytopenia, unspecified; Z88.0 Allergy status to penicillin
CPT/HCPCS: 36430; 80053; 85025; 86850; 86900; 86901; 87086; J1642; P9016

== ENCOUNTER 2022-10-01 11:00 | Inpatient (IN) | payer OTHER ==
[2022-10-01 12:04] LABS: Bacteria/HPF None Seen HPF (None Seen); Bilirubin Negative (Negative); Blood, Urine 3+ (Negative); Clarity Turbid (Clear); Glucose, Urine (Dipstick) 500 mg/dL (Negative); Ketone, Urine Negative (Negative); Leukocyte Negative Leu/uL (Negative); Nitrite Negative (Negative); Protein, Urine (Dipstick) 100 mg/dL (Neg-Trace); RBC/HPF 0-3 HPF (0-3); Specific Gravity, Urine 1.017 (1.002-1.036); Squamous Epithelial 0-3 HPF (0-3); Urobilinogen Normal mg/dL (Less than 2); WBC/HPF 0-3 HPF (0-3); pH, Urine 5.5 (5.0-9.0)
[2022-10-01 12:08] LABS: Hemoglobin 7.9 g/dL (14.0-18.0); Mean Corpuscular HGB CONC 33.6 g/dL (32.0-36.0); Mean Corpuscular Hemoglobin 27.2 pg (27.0-31.0); Mean Platelet Volume 15.7 fL (7.4-10.4); Platelet Count 9 10x3/uL (130-400); RBC Distribution Width 16.6 % (11.5-14.5); Red Blood Cell (RBC) Count 2.89 mill/uL (4.70-6.10); White Blood Cell (WBC) Count 0.1 10x3/uL (4.8-10.8)
[2022-10-01 12:25] LABS: ALT (SGPT) 15 U/L (8-55); AST (SGOT) 13 U/L (5-34); Albumin 3.8 g/dL (3.4-4.8); Alkaline Phosphatase 263 U/L (40-110); Anion Gap 10 mmol/L (10-20); BUN (Urea Nitrogen) 23 mg/dL (8.4-25.7); Bilirubin, Total 1.5 mg/dL (0.2-1.2); Calc. Creatinine Clearance 0 mL/min (70-130); Carbon Dioxide 21 mmol/L (23-31); Chloride 111 mmol/L (98-107); Estimated GFR 52; Globulin 2.9 g/dL (2.4-3.5); Glucose 115 mg/dL (80-115); Potassium 2.9 mmol/L (3.5-5.1); Protein, Total 6.7 g/dL (5.8-8.1); Sodium 139 mmol/L (136-145)
[2022-10-01 12:54] LABS: INR-International Normal Ratio 1.1; PTT 35.2 sec (22.9-36.1); Prothrombin Time 14.7 sec (12.0-14.7)
[2022-10-01] MEDS ORDERED: Acetaminophen 325 MG TAB PO PRN (13:08)
[2022-10-01] MEDS ORDERED: Bisacodyl 5 MG TAB PO PRN (13:08)
[2022-10-01] MEDS ORDERED: Senokot S 8.6-50 MG TAB PO PRN (13:08)
[2022-10-01] MEDS ORDERED: Ondansetron PF 4 MG/2 ML Vial IVP PRN (13:08)
[2022-10-01] MEDS ORDERED: Potassium Chloride 20 MEQ TAB ONE (13:11)
[2022-10-01] MEDS ORDERED: Cefepime 2 GM VIAL ONE (13:11)
[2022-10-01] MEDS ORDERED: VANCOMYCIN 2 GRAM/500 ML BAG 2 GM in Premix Bag 1 BAG IVPB SCH (13:15)
[2022-10-01] MEDS ORDERED: Electrolyte Replacement Protocol 1 EACH FS SCH (13:30)
[2022-10-01] MEDS ORDERED: Electrolyte Replacement Protocol FS PRN (14:30)
[2022-10-01 14:47] LABS: SARS-CoV-2 NAA Rapid Test Not Detected (NotDetected)
[2022-10-01] MEDS ORDERED: Potassium Chloride 20 MEQ/100 ML PREMIX BAG ONE (14:54)
[2022-10-01] MEDS ORDERED: Acetaminophen 500 MG TAB ONE (14:56)
[2022-10-01] MEDS: Lactated Ringer's 1,000 ML IV SCH ×2 (18:15→23:51)
[2022-10-01] MEDS: Potassium Chloride 10 MEQ in Premix Bag 1 BAG IVPB SCH ×4 (18:15→23:47)
[2022-10-01 18:25] VITALS: BMI 33.1
[2022-10-01] MEDS: Morphine 2 MG/ML VIAL SLOW IVP PRN (20:35)
[2022-10-01] MEDS ORDERED: Vancomycin 1 GM in Premix Bag 1 BAG IVPB SCH (21:00)
[2022-10-01] MEDS ORDERED: fentaNYL 50 mcg/mL 1 mL Vial SLOW IVP PRN (23:43)
[2022-10-02] MEDS: Cefepime 2 GM in Sodium Chloride 0.9% 100 ML IVPB SCH ×2 (00:50→13:30)
[2022-10-02] MEDS: Morphine 2 MG/ML VIAL SLOW IVP PRN ×3 (00:51→23:10)
[2022-10-02 05:34] LABS: Hemoglobin A1c 6.1 % (4.0-6.0)
[2022-10-02 05:38] LABS: Hemoglobin 6.4 g/dL (14.0-18.0); Mean Corpuscular HGB CONC 34.8 g/dL (32.0-36.0); Mean Corpuscular Hemoglobin 28.3 pg (27.0-31.0); Mean Corpuscular Volume 81.4 fl (78.0-98.0); Mean Platelet Volume 15.2 fL (7.4-10.4); Platelet Count 10 10x3/uL (130-400); RBC Distribution Width 16.3 % (11.5-14.5); Red Blood Cell (RBC) Count 2.25 mill/uL (4.70-6.10); White Blood Cell (WBC) Count 0.1 10x3/uL (4.8-10.8)
[2022-10-02 06:03] LABS: ALT (SGPT) 19 U/L (8-55); AST (SGOT) 19 U/L (5-34); Alkaline Phosphatase 267 U/L (40-110); Anion Gap 9 mmol/L (10-20); BUN (Urea Nitrogen) 18 mg/dL (8.4-25.7); Bilirubin, Direct 0.6 mg/dL (0.1-0.3); Bilirubin, Total 0.9 mg/dL (0.2-1.2); CK (CPK) 189 U/L (30-200); Calc. Creatinine Clearance 93 mL/min (70-130); Calcium 8.5 mg/dL (7.8-10.44); Carbon Dioxide 21 mmol/L (23-31); Chloride 116 mmol/L (98-107); Estimated GFR 67; Glucose 108 mg/dL (80-115); Magnesium 2.1 mg/dL (1.6-2.6); Potassium 3.1 mmol/L (3.5-5.1); Protein, Total 5.6 g/dL (5.8-8.1); Sodium 143 mmol/L (136-145)
[2022-10-02] MEDS ORDERED: Potassium Bicarbonate/Cit Ac 20 MEQ TAB PO SCH (08:00)
[2022-10-02] MEDS ORDERED: Polyethylene Glycol 3350 17 GM Packet PO PRN (08:30)
[2022-10-02] MEDS ORDERED: Preparation H Ointment 57 gram tube TOP SCH (09:00)
[2022-10-02] MEDS: metroNIDAZOLE 500 MG in Premix Bag 1 BAG IVPB SCH ×3 (09:32→23:09)
[2022-10-02] MEDS: Senokot S 8.6-50 MG TAB PO SCH ×2 (09:33→20:59)
[2022-10-02 09:53] LABS: Legionella Urinary Ag Negative (Negative); Strep pneumo Urine Ag NEGATIVE (NEGATIVE)
[2022-10-02] MEDS: Lactated Ringer's 1,000 ML IV SCH ×2 (11:36→20:57)
[2022-10-02] MEDS: Preparation H Ointment 28 GM TUBE TOP SCH ×2 (11:36→20:58)
[2022-10-02] MEDS ORDERED: Benzonatate 100 MG CAP PO PRN (11:49)
[2022-10-02] MEDS ORDERED: VANCOMYCIN 2 GRAM/500 ML BAG 2 GM in Premix Bag 1 BAG IVPB SCH (15:00)
[2022-10-02] MEDS: Atorvastatin Calcium 20 MG TAB PO SCH (21:04)
[2022-10-03] MEDS: Cefepime 2 GM in Sodium Chloride 0.9% 100 ML IVPB SCH (00:59)
[2022-10-03] MEDS: Morphine 2 MG/ML VIAL SLOW IVP PRN ×3 (03:36→22:13)
[2022-10-03 05:19] LABS: Mean Corpuscular HGB CONC 34.6 g/dL (32.0-36.0); Mean Corpuscular Hemoglobin 28.6 pg (27.0-31.0); Mean Corpuscular Volume 82.6 fl (78.0-98.0); Mean Platelet Volume 13.9 fL (7.4-10.4); Platelet Count 21 10x3/uL (130-400); RBC Distribution Width 16.6 % (11.5-14.5); Red Blood Cell (RBC) Count 2.44 mill/uL (4.70-6.10); White Blood Cell (WBC) Count 0.2 10x3/uL (4.8-10.8)
[2022-10-03 05:33] LABS: Anion Gap 11 mmol/L (10-20); BUN (Urea Nitrogen) 15 mg/dL (8.4-25.7); Calc. Creatinine Clearance 131 mL/min (70-130); Calcium 8.1 mg/dL (7.8-10.44); Carbon Dioxide 19 mmol/L (23-31); Chloride 111 mmol/L (98-107); Estimated GFR 98; Glucose 96 mg/dL (80-115); Magnesium 1.7 mg/dL (1.6-2.6); Potassium 2.7 mmol/L (3.5-5.1); Sodium 138 mmol/L (136-145)
[2022-10-03 05:39] LABS: Hypochromia SLIGHT = 6-15 cells (100X) (0-5/hpf); MDiff Complete? YES; Platelet Morphology Comment Appears Decreased
[2022-10-03] MEDS ORDERED: Magnesium 2 GM/50 ML(in water) 2 GM in Premix Bag 1 BAG IVPB SCH (08:00)
[2022-10-03] MEDS ORDERED: Meropenem 1 GM in Sodium Chloride 0.9% 100 ML IVPB SCH (08:00)
[2022-10-03] MEDS: Lactated Ringer's 1,000 ML IV SCH ×2 (09:02→18:08)
[2022-10-03] MEDS: Potassium Bicarbonate/Cit Ac 20 MEQ TAB PO SCH ×2 (09:03→11:00)
[2022-10-03] MEDS: Senokot S 8.6-50 MG TAB PO SCH ×2 (09:04→20:41)
[2022-10-03] MEDS: ALPRAZolam 0.5 MG TAB PO SCH (09:04)
[2022-10-03] MEDS: Preparation H Ointment 28 GM TUBE TOP SCH ×2 (09:05→20:41)
[2022-10-03] MEDS ORDERED: Iopamidol-370 76% 500 ML MDV (1 ML CHARGE) ONE (09:37)
[2022-10-03] MEDS: Potassium Chloride 20 MEQ TAB PO SCH ×2 (12:37→16:40)
[2022-10-03 14:26] LABS: Vancomycin, Trough 9.3 ug/mL
[2022-10-03] MEDS ORDERED: Gabapentin 300 MG CAP PO SCH (16:45)
[2022-10-03] MEDS: VANCOMYCIN 1.25 GM/250 ML BAG 1.25 GM in Premix Bag 1 BAG IVPB SCH (18:08)
[2022-10-03] MEDS: Meropenem 1 GM in Sodium Chloride 0.9% 100 ML IVPB SCH ×2 (18:09→22:52)
[2022-10-03] MEDS: Gabapentin 300 MG CAP PO SCH ×2 (18:09→20:40)
[2022-10-03] MEDS: Atorvastatin Calcium 20 MG TAB PO SCH (20:40)
[2022-10-03] MEDS: Cyclobenzaprine 10 MG TAB PO PRN (20:43)
[2022-10-04 05:14] LABS: Anion Gap 9 mmol/L (10-20); BUN (Urea Nitrogen) 11 mg/dL (8.4-25.7); Calc. Creatinine Clearance 151 mL/min (70-130); Carbon Dioxide 24 mmol/L (23-31); Chloride 110 mmol/L (98-107); Estimated GFR 102; Glucose 91 mg/dL (80-115); Potassium 3.3 mmol/L (3.5-5.1); Sodium 140 mmol/L (136-145)
[2022-10-04 05:40] LABS: Anisocytosis SLIGHT = 6-15 cells (100X) (0-5/hpf); Band 12 % (5-11); Burr Cells SLIGHT = 2-5 cells (100X) (0-1/hpf); Elliptocytes SLIGHT = 2-5 cells (100X) (0-1/hpf); Hemoglobin 6.7 g/dL (14.0-18.0); Lymphocytes 8 % (21-51); MDiff Complete? YES; Mean Corpuscular HGB CONC 34.3 g/dL (32.0-36.0); Mean Corpuscular Volume 81.6 fl (78.0-98.0); Mean Platelet Volume 14.8 fL (7.4-10.4); Monocytes 16 % (0-10); Neutrophil 64 % (42-75); Platelet Count 10 10x3/uL (130-400); Platelet Morphology Comment Appears Decreased; RBC Distribution Width 16.6 % (11.5-14.5); White Blood Cell (WBC) Count 0.6 10x3/uL (4.8-10.8)
[2022-10-04] MEDS: VANCOMYCIN 1.25 GM/250 ML BAG 1.25 GM in Premix Bag 1 BAG IVPB SCH (05:55)
[2022-10-04] MEDS ORDERED: VANCOMYCIN 1.25 GM/250 ML BAG 1.25 GM in Premix Bag 1 BAG IVPB SCH (06:00)
[2022-10-04] MEDS: Cyclobenzaprine 10 MG TAB PO PRN (07:13)
[2022-10-04] MEDS ORDERED: Magnesium 2 GM/50 ML(in water) 2 GM in Premix Bag 1 BAG IVPB SCH (08:00)
[2022-10-04] MEDS ORDERED: Potassium Chloride 20 MEQ TAB PO SCH (08:00)
[2022-10-04] MEDS: Lactated Ringer's 1,000 ML IV SCH ×2 (09:27→12:48)
[2022-10-04] MEDS: ALPRAZolam 0.5 MG TAB PO SCH (09:31)
[2022-10-04] MEDS: Gabapentin 300 MG CAP PO SCH ×3 (09:31→21:30)
[2022-10-04] MEDS: Preparation H Ointment 28 GM TUBE TOP SCH ×2 (09:33→21:30)
[2022-10-04] MEDS: Senokot S 8.6-50 MG TAB PO SCH ×2 (09:33→21:39)
[2022-10-04] MEDS ORDERED: Meropenem 1 GM in Sodium Chloride 0.9% 100 ML IVPB SCH (10:15)
[2022-10-04] MEDS: Meropenem 1 GM in Sodium Chloride 0.9% 100 ML IVPB SCH ×2 (10:35→18:03)
[2022-10-04] MEDS ORDERED: Morphine 4 MG/ML VIAL SLOW IVP PRN (12:55)
[2022-10-04] MEDS ORDERED: Morphine Sulfate 100 MG in Dextrose 5% in Water 98 ML IV SCH (13:45)
[2022-10-04] MEDS ORDERED: Naloxone HCl 0.4 mg/ml Vial IV PRN (13:45)
[2022-10-04] MEDS: Atorvastatin Calcium 20 MG TAB PO SCH (21:30)
[2022-10-05] MEDS: Lactated Ringer's 1,000 ML IV SCH ×3 (00:58→19:00)
[2022-10-05] MEDS: Meropenem 1 GM in Sodium Chloride 0.9% 100 ML IVPB SCH ×3 (01:01→17:12)
[2022-10-05 05:11] LABS: Anion Gap 9 mmol/L (10-20); BUN (Urea Nitrogen) 10 mg/dL (8.4-25.7); Calc. Creatinine Clearance 164 mL/min (70-130); Calcium 7.6 mg/dL (7.8-10.44); Carbon Dioxide 27 mmol/L (23-31); Chloride 108 mmol/L (98-107); Estimated GFR 105; Glucose 94 mg/dL (80-115); Potassium 3.3 mmol/L (3.5-5.1); Sodium 141 mmol/L (136-145)
[2022-10-05 05:18] LABS: ALT (SGPT) 15 U/L (8-55); AST (SGOT) 22 U/L (5-34); Albumin 2.8 g/dL (3.4-4.8); Alkaline Phosphatase 353 U/L (40-110); Bilirubin, Direct 0.2 mg/dL (0.1-0.3); Bilirubin, Total 0.6 mg/dL (0.2-1.2); Protein, Total 5.4 g/dL (5.8-8.1)
[2022-10-05 05:25] LABS: Band 30 % (5-11); Hemoglobin 7.2 g/dL (14.0-18.0); Hypochromia SLIGHT = 6-15 cells (100X) (0-5/hpf); MDiff Complete? YES; Mean Corpuscular HGB CONC 33.7 g/dL (32.0-36.0); Mean Platelet Volume 13.6 fL (7.4-10.4); Monocytes 10 % (0-10); Neutrophil 60 % (42-75); Platelet Count 18 10x3/uL (130-400); Platelet Morphology Comment Appears Decreased; RBC Distribution Width 16.8 % (11.5-14.5); Red Blood Cell (RBC) Count 2.58 mill/uL (4.70-6.10); White Blood Cell (WBC) Count 1.6 10x3/uL (4.8-10.8)
[2022-10-05] MEDS ORDERED: Potassium Chloride 20 MEQ TAB PO SCH (08:00)
[2022-10-05] MEDS ORDERED: Magnesium 2 GM/50 ML(in water) 2 GM in Premix Bag 1 BAG IVPB SCH (08:00)
[2022-10-05] MEDS: Preparation H Ointment 28 GM TUBE TOP SCH ×2 (08:12→21:04)
[2022-10-05] MEDS: Gabapentin 300 MG CAP PO SCH ×3 (08:13→20:57)
[2022-10-05] MEDS: Senokot S 8.6-50 MG TAB PO SCH ×2 (08:15→20:56)
[2022-10-05] MEDS ORDERED: ALPRAZolam 0.5 MG TAB PO SCH (12:15)
[2022-10-05] MEDS: Cyclobenzaprine 10 MG TAB PO PRN (18:08)
[2022-10-05] MEDS: Atorvastatin Calcium 20 MG TAB PO SCH (20:58)
[2022-10-06] MEDS: Meropenem 1 GM in Sodium Chloride 0.9% 100 ML IVPB SCH ×3 (02:44→18:14)
[2022-10-06 05:53] LABS: Anion Gap 9 mmol/L (10-20); BUN (Urea Nitrogen) 7 mg/dL (8.4-25.7); Calc. Creatinine Clearance 182 mL/min (70-130); Calcium 7.8 mg/dL (7.8-10.44); Carbon Dioxide 28 mmol/L (23-31); Chloride 108 mmol/L (98-107); Estimated GFR 108; Glucose 93 mg/dL (80-115); Magnesium 1.9 mg/dL (1.6-2.6); Sodium 142 mmol/L (136-145)
[2022-10-06 05:54] LABS: Anisocytosis SLIGHT = 6-15 cells (100X) (0-5/hpf); Band 2 % (5-11); Hemoglobin 7.2 g/dL (14.0-18.0); Lymphocytes 12 % (21-51); MDiff Complete? YES; Mean Corpuscular HGB CONC 34.1 g/dL (32.0-36.0); Mean Corpuscular Hemoglobin 28.1 pg (27.0-31.0); Mean Corpuscular Volume 82.6 fl (78.0-98.0); Mean Platelet Volume 13.4 fL (7.4-10.4); Monocytes 15 % (0-10); Neutrophil 71 % (42-75); Platelet Count 23 10x3/uL (130-400); Platelet Morphology Comment Appears Decreased; RBC Distribution Width 16.6 % (11.5-14.5); Red Blood Cell (RBC) Count 2.55 mill/uL (4.70-6.10); Target Cells SLIGHT = 2-5 cells (100X) (0-1/hpf); Tear Drops SLIGHT = 2-5 cells (100X) (0-1/hpf)
[2022-10-06 05:56] LABS: Potassium 2.5 mmol/L (3.5-5.1)
[2022-10-06] MEDS ORDERED: Potassium Bicarbonate/Cit Ac 20 MEQ TAB PO SCH (06:30)
[2022-10-06] MEDS: Potassium Chloride 40 MEQ in Premix Bag 1 BAG IVPB SCH ×2 (07:50→11:18)
[2022-10-06] MEDS ORDERED: Magnesium 2 GM/50 ML(in water) 2 GM in Premix Bag 1 BAG IVPB SCH (08:00)
[2022-10-06] MEDS: Senokot S 8.6-50 MG TAB PO SCH ×2 (09:24→21:19)
[2022-10-06] MEDS: ALPRAZolam 0.5 MG TAB PO SCH (09:24)
[2022-10-06] MEDS: Gabapentin 300 MG CAP PO SCH ×3 (09:24→21:19)
[2022-10-06] MEDS: Preparation H Ointment 28 GM TUBE TOP SCH (09:25)
[2022-10-06] MEDS ORDERED: Iopamidol 370 76% 100 ML VIAL ONE (09:53)
[2022-10-06 20:13] LABS: Potassium 3.1 mmol/L (3.5-5.1)
[2022-10-06] MEDS: Atorvastatin Calcium 20 MG TAB PO SCH (21:21)
[2022-10-06] MEDS ORDERED: Potassium Chloride 40 MEQ in Premix Bag 1 BAG IVPB SCH (22:00)
[2022-10-07] MEDS: Preparation H Ointment 28 GM TUBE TOP SCH ×3 (01:02→20:56)
[2022-10-07] MEDS: Meropenem 1 GM in Sodium Chloride 0.9% 100 ML IVPB SCH ×3 (01:43→17:17)
[2022-10-07 05:45] LABS: Anion Gap 8 mmol/L (10-20); BUN (Urea Nitrogen) 7 mg/dL (8.4-25.7); Calc. Creatinine Clearance 185 mL/min (70-130); Carbon Dioxide 26 mmol/L (23-31); Chloride 111 mmol/L (98-107); Estimated GFR 109; Glucose 92 mg/dL (80-115); Potassium 3.4 mmol/L (3.5-5.1); Sodium 142 mmol/L (136-145)
[2022-10-07 05:51] LABS: Band 4 % (5-11); Hemoglobin 7.8 g/dL (14.0-18.0); Hypochromia SLIGHT = 6-15 cells (100X) (0-5/hpf); Lymphocytes 8 % (21-51); MDiff Complete? YES; Mean Corpuscular HGB CONC 35.6 g/dL (32.0-36.0); Mean Corpuscular Hemoglobin 29.8 pg (27.0-31.0); Mean Corpuscular Volume 83.5 fl (78.0-98.0); Mean Platelet Volume 12.1 fL (7.4-10.4); Metamyelocyte 2 % (0-0); Monocytes 8 % (0-10); Neutrophil 78 % (42-75); Platelet Count 26 10x3/uL (130-400); Platelet Morphology Comment Appears Decreased; RBC Distribution Width 16.5 % (11.5-14.5); Red Blood Cell (RBC) Count 2.63 mill/uL (4.70-6.10)
[2022-10-07] MEDS ORDERED: Magnesium 2 GM/50 ML(in water) 2 GM in Premix Bag 1 BAG IVPB SCH (08:00)
[2022-10-07] MEDS ORDERED: Potassium Chloride 20 MEQ TAB PO SCH (08:00)
[2022-10-07] MEDS: Senokot S 8.6-50 MG TAB PO SCH ×2 (09:07→21:14)
[2022-10-07] MEDS: ALPRAZolam 0.5 MG TAB PO SCH (09:07)
[2022-10-07] MEDS: Gabapentin 300 MG CAP PO SCH ×3 (09:08→21:14)
[2022-10-07] MEDS: Morphine 2 MG/ML VIAL SLOW IVP PRN ×2 (14:33→23:22)
[2022-10-07] MEDS: oxyCODONE 5 MG TAB PO PRN (17:17)
[2022-10-07] MEDS: Atorvastatin Calcium 20 MG TAB PO SCH (21:14)
[2022-10-08] MEDS: oxyCODONE 5 MG TAB PO PRN (01:02)
[2022-10-08] MEDS: Meropenem 1 GM in Sodium Chloride 0.9% 100 ML IVPB SCH ×2 (01:47→10:11)
[2022-10-08] MEDS: Morphine 2 MG/ML VIAL SLOW IVP PRN ×3 (01:47→10:12)
[2022-10-08 02:24] LABS: Bacteria/HPF None Seen HPF (None Seen); Bilirubin Negative (Negative); Blood, Urine 1+ (Negative); Clarity Clear (Clear); Glucose, Urine (Dipstick) Greater than 1000 mg/dL (Negative); Ketone, Urine Negative (Negative); Leukocyte Negative Leu/uL (Negative); Nitrite Negative (Negative); Protein, Urine (Dipstick) 50 mg/dL (Neg-Trace); RBC/HPF 0-3 HPF (0-3); Specific Gravity, Urine 1.014 (1.002-1.036); Squamous Epithelial None Seen HPF (0-3); Urobilinogen Normal mg/dL (Less than 2); WBC/HPF 0-3 HPF (0-3); pH, Urine 6.5 (5.0-9.0)
[2022-10-08 05:31] LABS: Anion Gap 7 mmol/L (10-20); BUN (Urea Nitrogen) 8 mg/dL (8.4-25.7); Calc. Creatinine Clearance 174 mL/min (70-130); Calcium 8.4 mg/dL (7.8-10.44); Carbon Dioxide 27 mmol/L (23-31); Chloride 106 mmol/L (98-107); Estimated GFR 107; Glucose 110 mg/dL (80-115); Magnesium 2.2 mg/dL (1.6-2.6); Potassium 3.7 mmol/L (3.5-5.1); Sodium 136 mmol/L (136-145)
[2022-10-08 05:32] LABS: Hemoglobin 7.9 g/dL (14.0-18.0); Mean Corpuscular HGB CONC 32.7 g/dL (32.0-36.0); Mean Corpuscular Hemoglobin 27.2 pg (27.0-31.0); Mean Platelet Volume 8.5 fL (7.4-10.4); Platelet Count 36 10x3/uL (130-400); RBC Distribution Width 16.9 % (11.5-14.5); Red Blood Cell (RBC) Count 2.92 mill/uL (4.70-6.10); White Blood Cell (WBC) Count 4.9 10x3/uL (4.8-10.8)
[2022-10-08 05:49] LABS: Anisocytosis SLIGHT = 6-15 cells (100X) (0-5/hpf); Band 7 % (5-11); Lymphocytes 12 % (21-51); MDiff Complete? YES; Monocytes 6 % (0-10); Neutrophil 75 % (42-75); Ovalocytes SLIGHT = 2-5 cells (100X) (0-1/hpf); Platelet Morphology Comment Appears Decreased; Polychromasia SLIGHT = 2-3 cells (100X) (0-2/hpf); Tear Drops SLIGHT = 2-5 cells (100X) (0-1/hpf)
[2022-10-08 08:58] VITALS: BP 131/75; TEMP 97.9
[2022-10-08] MEDS: Senokot S 8.6-50 MG TAB PO SCH (10:13)
[2022-10-08] MEDS: ALPRAZolam 0.5 MG TAB PO SCH (10:13)
[2022-10-08] MEDS: Gabapentin 300 MG CAP PO SCH (10:14)
[2022-10-08] MEDS: Preparation H Ointment 28 GM TUBE TOP SCH (10:14)
== END 2022-10-08 14:01 | disposition home or self-care (01) | DRG 871 ==
LOC: ERS 11:00 → ERHOLD 13:14 → 2NO 17:44 → MSONC 10-05 19:40
PROVIDERS: ADMIT Family Medicine; ATTEND Hospitalist
PROC: 30233N1 Transfusion of Nonautologous Red Blood Cells into Peripheral Vein, Percutaneous Approach (ICD-10-PCS; 2022-09-30)
PROC: 30233R1 Transfusion of Nonautologous Platelets into Peripheral Vein, Percutaneous Approach (ICD-10-PCS; principal; 2022-10-01)
PROC: 3E03329 Introduction of Other Anti-infective into Peripheral Vein, Percutaneous Approach (ICD-10-PCS; 2022-10-01)
PROC: 30233N1 Transfusion of Nonautologous Red Blood Cells into Peripheral Vein, Percutaneous Approach (ICD-10-PCS; 2022-10-02)
DX: A41.51 Sepsis due to Escherichia coli [E. coli] (principal); D61.810 Antineoplastic chemotherapy induced pancytopenia; N17.9 Acute kidney failure, unspecified; C40.22 Malignant neoplasm of long bones of left lower limb; C78.02 Secondary malignant neoplasm of left lung; C78.01 Secondary malignant neoplasm of right lung; K21.9 Gastro-esophageal reflux disease without esophagitis; E78.5 Hyperlipidemia, unspecified; I10 Essential (primary) hypertension; F41.9 Anxiety disorder, unspecified; E86.0 Dehydration; E87.6 Hypokalemia; T45.1X5A Adverse effect of antineoplastic and immunosuppressive drugs, initial encounter; R91.8 Other nonspecific abnormal finding of lung field; L89.90 Pressure ulcer of unspecified site, unspecified stage; Z20.822 Contact with and (suspected) exposure to COVID-19; Z98.890 Other specified postprocedural states; Z88.0 Allergy status to penicillin; Z79.899 Other long term (current) drug therapy; Z90.49 Acquired absence of other specified parts of digestive tract
CPT/HCPCS: 36415; 36430; 70450; 71045; 71260; 74177; 75635; 80048; 80053; 80076; 80202; 81001; 81003; 81015; 82550; 83036; 83605; 83735; 84443; 84484; 85025; 85610; 85730; 86850; 86900; 86901; 87040; 87077; 87086; 87186; 87449; 87899; 93005; 96365; 96374; J0692; J1642; J2185; J2270; J2272; J2405; J3370; J3475; J3480; J3490; J7070; J7120; P9016; P9035; Q9967

== ENCOUNTER 2022-10-18 08:01 | Inpatient (IN) | payer OTHER ==
[2022-10-18] MEDS ORDERED: Dexamethasone 10 MG/ML VIAL SLOW IVP SCH (10:45)
[2022-10-18] MEDS ORDERED: PALONOSETRON HCL 0.05 MG/ML 5 ML VIAL IVP SCH (10:45)
[2022-10-18] MEDS ORDERED: Dexamethasone 10 MG in Sodium Chloride 0.9% 50 ML IVPB SCH (11:15)
[2022-10-18] MEDS ORDERED: OxyCODONE IR 30 MG TAB PO PRN (11:25)
[2022-10-18] MEDS ORDERED: Benzonatate 100 MG CAP PO PRN (11:25)
[2022-10-18] MEDS ORDERED: Acetaminophen 325 MG TAB PO PRN (11:25)
[2022-10-18] MEDS ORDERED: Ondansetron PF 4 MG/2 ML Vial IVP PRN (11:25)
[2022-10-18] MEDS ORDERED: Losartan 25 MG TAB PO SCH (12:00)
[2022-10-18] MEDS: Morphine ER 15 MG TAB PO PRN (12:26)
[2022-10-18] MEDS ORDERED: ALPRAZolam 0.5 MG TAB PO SCH (12:30)
[2022-10-18 12:51] VITALS: BMI 33.9
[2022-10-18] MEDS: SODIUM CHLORIDE 0.9% IVPB SCH ×4 (14:49→22:05)
[2022-10-18] MEDS: MESNA IVPB SCH ×3 (14:49→22:05)
[2022-10-18] MEDS: IFOSFAMIDE IVPB SCH (15:43)
[2022-10-18] MEDS: DOXORUBICIN IVPB SCH (15:48)
[2022-10-18] MEDS: Gabapentin 300 MG CAP PO SCH ×2 (15:55→20:59)
[2022-10-18] MEDS: Sodium Chloride 0.9% 1,000 ML IV SCH (15:57)
[2022-10-18] MEDS: oxyCODONE 5 MG TAB PO PRN (18:37)
[2022-10-18] MEDS: Cyclobenzaprine 10 MG TAB PO PRN (20:59)
[2022-10-18] MEDS: Atorvastatin Calcium 20 MG TAB PO SCH (21:00)
[2022-10-18] MEDS: Amlodipine 10 MG TAB PO SCH (21:02)
[2022-10-19] MEDS: Morphine ER 15 MG TAB PO PRN (00:07)
[2022-10-19] MEDS: MESNA IVPB SCH ×5 (02:04→22:22)
[2022-10-19] MEDS: SODIUM CHLORIDE 0.9% IVPB SCH ×6 (02:04→22:22)
[2022-10-19] MEDS: oxyCODONE 5 MG TAB PO PRN (03:25)
[2022-10-19 06:03] LABS: #Eosinphils 0.1 thou/uL (0.0-0.7); #Lymphocytes 0.6 thou/uL (1.20-3.40); #Monocytes 0.4 thou/uL (0.11-0.59); #Neutrophils 4.9 thou/uL (1.40-6.50); %Basophils 0.3 % (0.0-1.0); %Eosinophils 0.8 % (0.0-10.0); %Lymphocytes 10.4 % (21.0-51.0); %Monocytes 7.2 % (0.0-10.0); %Neutrophils 81.2 % (42.0-75.0); Hemoglobin 7.6 g/dL (14.0-18.0); Mean Corpuscular HGB CONC 33.6 g/dL (32.0-36.0); Mean Corpuscular Volume 86.2 fl (78.0-98.0); Platelet Count 189 10x3/uL (130-400); RBC Distribution Width 18.9 % (11.5-14.5); Red Blood Cell (RBC) Count 2.62 mill/uL (4.70-6.10); White Blood Cell (WBC) Count 6.1 10x3/uL (4.8-10.8)
[2022-10-19 06:38] LABS: ALT (SGPT) 10 U/L (8-55); AST (SGOT) 14 U/L (5-34); Albumin 3.2 g/dL (3.4-4.8); Alkaline Phosphatase 191 U/L (40-110); Anion Gap 11 mmol/L (10-20); BUN (Urea Nitrogen) 17 mg/dL (8.4-25.7); Bilirubin, Total 0.3 mg/dL (0.2-1.2); Calc. Creatinine Clearance 141 mL/min (70-130); Calcium 8.9 mg/dL (7.8-10.44); Carbon Dioxide 23 mmol/L (23-31); Chloride 110 mmol/L (98-107); Estimated GFR 100; Globulin 2.6 g/dL (2.4-3.5); Glucose 142 mg/dL (80-115); Magnesium 1.9 mg/dL (1.6-2.6); Phosphorus 2.4 mg/dL (2.3-4.7); Protein, Total 5.8 g/dL (5.8-8.1); Sodium 140 mmol/L (136-145)
[2022-10-19 06:59] LABS: Bacteria/HPF None Seen HPF (None Seen); Bilirubin Negative (Negative); Blood, Urine Negative (Negative); Clarity Clear (Clear); Glucose, Urine (Dipstick) Greater than 1000 mg/dL (Negative); Ketone, Urine Greater than 150 mg/dL (Negative); Leukocyte Negative Leu/uL (Negative); Nitrite Negative (Negative); Protein, Urine (Dipstick) 20 mg/dL (Neg-Trace); RBC/HPF 0-3 HPF (0-3); Specific Gravity, Urine 1.024 (1.002-1.036); Squamous Epithelial None Seen HPF (0-3); Urobilinogen Normal mg/dL (Less than 2); WBC/HPF 0-3 HPF (0-3); pH, Urine 5.5 (5.0-9.0)
[2022-10-19] MEDS: ALPRAZolam 0.5 MG TAB PO SCH (08:42)
[2022-10-19] MEDS: Losartan 25 MG TAB PO SCH (08:43)
[2022-10-19] MEDS: Gabapentin 300 MG CAP PO SCH ×3 (08:43→20:51)
[2022-10-19] MEDS: Sodium Chloride 0.9% 1,000 ML IV SCH ×2 (08:44→11:48)
[2022-10-19] MEDS: IFOSFAMIDE IVPB SCH (11:50)
[2022-10-19] MEDS: DOXORUBICIN IVPB SCH (15:16)
[2022-10-19] MEDS: Morphine 4 MG/ML VIAL SLOW IVP PRN ×2 (15:27→22:14)
[2022-10-19] MEDS: Atorvastatin Calcium 20 MG TAB PO SCH (20:50)
[2022-10-19] MEDS: Amlodipine 10 MG TAB PO SCH (20:50)
[2022-10-19] MEDS: Cyclobenzaprine 10 MG TAB PO PRN (20:55)
[2022-10-20] MEDS: Sodium Chloride 0.9% 1,000 ML IV SCH ×2 (02:34→07:15)
[2022-10-20] MEDS: Morphine 4 MG/ML VIAL SLOW IVP PRN ×3 (04:52→18:54)
[2022-10-20 05:42] LABS: Bacteria/HPF None Seen HPF (None Seen); Bilirubin Negative (Negative); Blood, Urine Negative (Negative); Clarity Clear (Clear); Glucose, Urine (Dipstick) Greater than 1000 mg/dL (Negative); Ketone, Urine Greater than 150 mg/dL (Negative); Leukocyte Negative Leu/uL (Negative); Nitrite Negative (Negative); Protein, Urine (Dipstick) 10 mg/dL (Neg-Trace); RBC/HPF 0-3 HPF (0-3); Squamous Epithelial None Seen HPF (0-3); Urobilinogen Normal mg/dL (Less than 2); WBC/HPF 0-3 HPF (0-3)
[2022-10-20 06:21] LABS: Hemoglobin 7.3 g/dL (14.0-18.0); Mean Corpuscular Hemoglobin 29.5 pg (27.0-31.0); Mean Corpuscular Volume 86.7 fl (78.0-98.0); Platelet Count 191 10x3/uL (130-400); RBC Distribution Width 19.3 % (11.5-14.5); Red Blood Cell (RBC) Count 2.47 mill/uL (4.70-6.10); White Blood Cell (WBC) Count 7.9 10x3/uL (4.8-10.8)
[2022-10-20 06:29] LABS: ALT (SGPT) 10 U/L (8-55); AST (SGOT) 11 U/L (5-34); Albumin 3.1 g/dL (3.4-4.8); Alkaline Phosphatase 180 U/L (40-110); Anion Gap 12 mmol/L (10-20); BUN (Urea Nitrogen) 17 mg/dL (8.4-25.7); Bilirubin, Total 0.2 mg/dL (0.2-1.2); Calc. Creatinine Clearance 149 mL/min (70-130); Calcium 8.8 mg/dL (7.8-10.44); Carbon Dioxide 21 mmol/L (23-31); Chloride 115 mmol/L (98-107); Estimated GFR 102; Globulin 2.4 g/dL (2.4-3.5); Glucose 115 mg/dL (80-115); Phosphorus 2.3 mg/dL (2.3-4.7); Potassium 3.6 mmol/L (3.5-5.1); Protein, Total 5.5 g/dL (5.8-8.1); Sodium 144 mmol/L (136-145)
[2022-10-20 06:51] LABS: Band 6 % (5-11); Hypochromia SLIGHT = 6-15 cells (100X) (0-5/hpf); Lymphocytes 18 % (21-51); MDiff Complete? YES; Monocytes 11 % (0-10); Neutrophil 65 % (42-75); Platelet Morphology Comment Appears Adequate
[2022-10-20] MEDS: ALPRAZolam 0.5 MG TAB PO SCH (10:05)
[2022-10-20] MEDS: Losartan 25 MG TAB PO SCH (10:09)
[2022-10-20] MEDS: Gabapentin 300 MG CAP PO SCH ×3 (10:10→21:27)
[2022-10-20] MEDS ORDERED: Polyethylene Glycol 3350 17 GM Packet PO PRN (10:18)
[2022-10-20] MEDS: Bisacodyl 5 MG TAB PO SCH ×2 (10:53→11:00)
[2022-10-20] MEDS: MESNA IVPB SCH ×4 (10:53→21:25)
[2022-10-20] MEDS: SODIUM CHLORIDE 0.9% IVPB SCH ×5 (10:53→21:25)
[2022-10-20] MEDS: IFOSFAMIDE IVPB SCH (11:17)
[2022-10-20] MEDS: DOXORUBICIN IVPB SCH (16:23)
[2022-10-20] MEDS: Lactated Ringer's 1,000 ML IV SCH (17:28)
[2022-10-20] MEDS: Amlodipine 10 MG TAB PO SCH (21:27)
[2022-10-20] MEDS: Atorvastatin Calcium 20 MG TAB PO SCH (21:27)
[2022-10-20] MEDS: oxyCODONE 5 MG TAB PO PRN (21:30)
[2022-10-20] MEDS: Cyclobenzaprine 10 MG TAB PO PRN (21:30)
[2022-10-21] MEDS: Morphine 4 MG/ML VIAL SLOW IVP PRN ×3 (00:13→22:00)
[2022-10-21] MEDS: Lactated Ringer's 1,000 ML IV SCH ×3 (04:59→16:06)
[2022-10-21 05:27] LABS: #Lymphocytes 0.4 thou/uL (1.20-3.40); #Monocytes 0.6 thou/uL (0.11-0.59); #Neutrophils 4.4 thou/uL (1.40-6.50); %Lymphocytes 7.9 % (21.0-51.0); %Monocytes 10.6 % (0.0-10.0); %Neutrophils 81.5 % (42.0-75.0); Hemoglobin 7.3 g/dL (14.0-18.0); Mean Corpuscular Volume 87.6 fl (78.0-98.0); Mean Platelet Volume 8.4 fL (7.4-10.4); Platelet Count 199 10x3/uL (130-400); RBC Distribution Width 19.4 % (11.5-14.5); Red Blood Cell (RBC) Count 2.61 mill/uL (4.70-6.10); White Blood Cell (WBC) Count 5.4 10x3/uL (4.8-10.8)
[2022-10-21 05:48] LABS: ALT (SGPT) 9 U/L (8-55); AST (SGOT) 11 U/L (5-34); Alkaline Phosphatase 152 U/L (40-110); Anion Gap 10 mmol/L (10-20); BUN (Urea Nitrogen) 16 mg/dL (8.4-25.7); Bilirubin, Total 0.4 mg/dL (0.2-1.2); Calc. Creatinine Clearance 168 mL/min (70-130); Calcium 8.7 mg/dL (7.8-10.44); Carbon Dioxide 20 mmol/L (23-31); Chloride 114 mmol/L (98-107); Estimated GFR 106; Globulin 2.1 g/dL (2.4-3.5); Glucose 88 mg/dL (80-115); Magnesium 1.8 mg/dL (1.6-2.6); Phosphorus 2.5 mg/dL (2.3-4.7); Potassium 3.4 mmol/L (3.5-5.1); Protein, Total 5.1 g/dL (5.8-8.1); Sodium 141 mmol/L (136-145)
[2022-10-21 07:17] LABS: Bacteria/HPF None Seen HPF (None Seen); Bilirubin Negative (Negative); Blood, Urine Negative (Negative); Clarity Clear (Clear); Glucose, Urine (Dipstick) 500 mg/dL (Negative); Ketone, Urine 60 mg/dL (Negative); Leukocyte Negative Leu/uL (Negative); Nitrite Negative (Negative); Protein, Urine (Dipstick) 20 mg/dL (Neg-Trace); RBC/HPF 0-3 HPF (0-3); Specific Gravity, Urine 1.013 (1.002-1.036); Squamous Epithelial None Seen HPF (0-3); Urobilinogen Normal mg/dL (Less than 2); WBC/HPF 0-3 HPF (0-3)
[2022-10-21] MEDS: Bisacodyl 5 MG TAB PO SCH (09:31)
[2022-10-21] MEDS: ALPRAZolam 0.5 MG TAB PO SCH (09:31)
[2022-10-21] MEDS: Losartan 25 MG TAB PO SCH (09:32)
[2022-10-21] MEDS: Gabapentin 300 MG CAP PO SCH ×3 (09:32→20:44)
[2022-10-21] MEDS: SODIUM CHLORIDE 0.9% IVPB SCH ×3 (10:37→17:01)
[2022-10-21] MEDS: MESNA IVPB SCH ×3 (10:37→17:01)
[2022-10-21] MEDS: IFOSFAMIDE IVPB SCH (10:56)
[2022-10-21] MEDS ORDERED: Potassium Chloride 20 MEQ TAB PO SCH (12:15)
[2022-10-21] MEDS: Cyclobenzaprine 10 MG TAB PO PRN (16:05)
[2022-10-21] MEDS: Atorvastatin Calcium 20 MG TAB PO SCH (20:42)
[2022-10-21] MEDS: Amlodipine 10 MG TAB PO SCH (20:43)
[2022-10-22] MEDS: MESNA IVPB SCH (01:15)
[2022-10-22] MEDS: SODIUM CHLORIDE 0.9% IVPB SCH (01:15)
[2022-10-22 04:34] LABS: #Lymphocytes 0.5 thou/uL (1.20-3.40); #Monocytes 0.3 thou/uL (0.11-0.59); #Neutrophils 3.8 thou/uL (1.40-6.50); %Basophils 0.1 % (0.0-1.0); %Eosinophils 0.2 % (0.0-10.0); %Lymphocytes 11.2 % (21.0-51.0); %Monocytes 6.2 % (0.0-10.0); %Neutrophils 82.4 % (42.0-75.0); Hemoglobin 7.4 g/dL (14.0-18.0); Mean Corpuscular HGB CONC 34.4 g/dL (32.0-36.0); Mean Corpuscular Hemoglobin 30.4 pg (27.0-31.0); Mean Corpuscular Volume 88.5 fl (78.0-98.0); Mean Platelet Volume 8.1 fL (7.4-10.4); Platelet Count 244 10x3/uL (130-400); RBC Distribution Width 18.9 % (11.5-14.5); Red Blood Cell (RBC) Count 2.43 mill/uL (4.70-6.10); White Blood Cell (WBC) Count 4.6 10x3/uL (4.8-10.8)
[2022-10-22 05:00] LABS: ALT (SGPT) 16 U/L (8-55); AST (SGOT) 20 U/L (5-34); Albumin 3.2 g/dL (3.4-4.8); Alkaline Phosphatase 148 U/L (40-110); Anion Gap 10 mmol/L (10-20); BUN (Urea Nitrogen) 17 mg/dL (8.4-25.7); Bilirubin, Total 0.5 mg/dL (0.2-1.2); Calc. Creatinine Clearance 157 mL/min (70-130); Carbon Dioxide 21 mmol/L (23-31); Chloride 116 mmol/L (98-107); Estimated GFR 104; Globulin 2.2 g/dL (2.4-3.5); Glucose 100 mg/dL (80-115); Magnesium 1.9 mg/dL (1.6-2.6); Phosphorus 2.6 mg/dL (2.3-4.7); Potassium 3.6 mmol/L (3.5-5.1); Protein, Total 5.4 g/dL (5.8-8.1); Sodium 143 mmol/L (136-145)
[2022-10-22 05:03] LABS: Bacteria/HPF None Seen HPF (None Seen); Bilirubin Negative (Negative); Blood, Urine Negative (Negative); Clarity Clear (Clear); Glucose, Urine (Dipstick) 500 mg/dL (Negative); Ketone, Urine Greater than 150 mg/dL (Negative); Leukocyte Negative Leu/uL (Negative); Nitrite Negative (Negative); Protein, Urine (Dipstick) 20 mg/dL (Neg-Trace); RBC/HPF 0-3 HPF (0-3); Specific Gravity, Urine 1.013 (1.002-1.036); Squamous Epithelial None Seen HPF (0-3); Urobilinogen Normal mg/dL (Less than 2); WBC/HPF 0-3 HPF (0-3)
[2022-10-22] MEDS ORDERED: Potassium Chloride 20 MEQ TAB PO SCH (07:45)
[2022-10-22] MEDS: Gabapentin 300 MG CAP PO SCH ×2 (07:51→14:59)
[2022-10-22] MEDS: Bisacodyl 5 MG TAB PO SCH (07:51)
[2022-10-22] MEDS: Lactated Ringer's 1,000 ML IV SCH (07:51)
[2022-10-22] MEDS: ALPRAZolam 0.5 MG TAB PO SCH (07:52)
[2022-10-22] MEDS: Losartan 25 MG TAB PO SCH (07:52)
[2022-10-22] MEDS: oxyCODONE 5 MG TAB PO PRN (07:58)
[2022-10-22] MEDS ORDERED: PEGFILGRASTIM-JMDB 6 MG/0.6 ML SYRINGE SQ SCH (15:00)
[2022-10-22 16:05] VITALS: BP 135/72; TEMP 98.7
== END 2022-10-22 16:49 | disposition home or self-care (01) | DRG 847 ==
LOC: MSONC 10:35
PROVIDERS: ADMIT Family Medicine; ATTEND Internal Medicine
DX: Z51.11 Encounter for antineoplastic chemotherapy (principal); C40.22 Malignant neoplasm of long bones of left lower limb; C78.00 Secondary malignant neoplasm of unspecified lung; I82.412 Acute embolism and thrombosis of left femoral vein; I10 Essential (primary) hypertension; E78.5 Hyperlipidemia, unspecified; G89.29 Other chronic pain; K21.9 Gastro-esophageal reflux disease without esophagitis; D63.8 Anemia in other chronic diseases classified elsewhere; Z79.01 Long term (current) use of anticoagulants; Z88.0 Allergy status to penicillin; Z79.899 Other long term (current) drug therapy
CPT/HCPCS: 80053; 81001; 83735; 84100; 85025; 86850; 86900; 86901; J1100; J1453; J1642; J2270; J2469; J3490; J7050; J7120; J9000; J9208; J9209; Q5108

== ENCOUNTER 2022-10-29 09:17 | Day surgery (SDC) | payer OTHER ==
[2022-10-29] MEDS ORDERED: diphenhydrAMINE 25 MG CAP PO SCH (09:45)
[2022-10-29] MEDS ORDERED: Acetaminophen 500 MG TAB PO SCH (09:45)
[2022-10-29] MEDS ORDERED: diphenhydrAMINE 25 MG CAP ONE (10:04)
[2022-10-29] MEDS ORDERED: Acetaminophen 500 MG TAB ONE (10:04)
[2022-10-29 16:07] VITALS: BP 118/61; TEMP 98.1
== END 2022-10-29 16:04 | disposition home or self-care (01) ==
LOC: ONC/OP 09:17
PROVIDERS: ATTEND Internal Medicine
PROC: 30233N1 Transfusion of Nonautologous Red Blood Cells into Peripheral Vein, Percutaneous Approach (ICD-10-PCS; principal; 2022-10-29)
DX: D64.9 Anemia, unspecified (principal); D69.6 Thrombocytopenia, unspecified; Z88.0 Allergy status to penicillin
CPT/HCPCS: 36430; 86850; 86900; 86901; J1642; P9016

== ENCOUNTER 2022-11-01 10:22 | Day surgery (SDC) | payer OTHER ==
[2022-11-01] MEDS ORDERED: diphenhydrAMINE 25 MG CAP PO SCH (10:45)
[2022-11-01] MEDS ORDERED: Acetaminophen 500 MG TAB PO SCH (10:45)
[2022-11-01] MEDS ORDERED: Acetaminophen 500 MG TAB ONE (11:12)
[2022-11-01 12:23] VITALS: BP 103/57; TEMP 97.9
== END 2022-11-01 12:15 | disposition home or self-care (01) ==
LOC: ONC/OP 10:22
PROVIDERS: ATTEND Internal Medicine
PROC: 30233R1 Transfusion of Nonautologous Platelets into Peripheral Vein, Percutaneous Approach (ICD-10-PCS; principal; 2022-11-01)
DX: D69.6 Thrombocytopenia, unspecified (principal); D64.9 Anemia, unspecified; Z88.0 Allergy status to penicillin
CPT/HCPCS: 36415; 36430; 80053; 86850; 86900; 86901; J1642; P9035

== ENCOUNTER 2022-11-08 10:06 | Inpatient (IN) | payer OTHER ==
[2022-11-08] MEDS ORDERED: Ondansetron ODT 4 MG TAB PO PRN (12:10)
[2022-11-08] MEDS ORDERED: Acetaminophen 325 MG TAB PO PRN (12:10)
[2022-11-08] MEDS ORDERED: Senokot S 8.6-50 MG TAB PO PRN (12:10)
[2022-11-08] MEDS ORDERED: Calcium Carbonate 500 MG ChewTAB PO PRN (12:10)
[2022-11-08] MEDS ORDERED: Ondansetron PF 4 MG/2 ML Vial IVP PRN (12:10)
[2022-11-08] MEDS ORDERED: Cyclobenzaprine 10 MG TAB PO PRN (12:12)
[2022-11-08] MEDS ORDERED: hydrALAZINE 20 MG/ML VIAL SLOW IVP PRN (12:15)
[2022-11-08] MEDS ORDERED: Prochlorperazine Maleate 5 MG TAB PO PRN (12:56)
[2022-11-08] MEDS ORDERED: Benzonatate 100 MG CAP PO PRN (12:57)
[2022-11-08] MEDS ORDERED: PALONOSETRON HCL 0.05 MG/ML 5 ML VIAL IVP SCH (13:30)
[2022-11-08 13:32] VITALS: BMI 33.1
[2022-11-08] MEDS: Sodium Chloride 0.9% 1,000 ML IV SCH (14:17)
[2022-11-08] MEDS: Gabapentin 300 MG CAP PO SCH ×2 (14:49→21:21)
[2022-11-08] MEDS: oxyCODONE 5 MG TAB PO PRN (15:13)
[2022-11-08 18:41] LABS: Hemoglobin 6.8 g/dL (14.0-18.0)
[2022-11-08] MEDS: Atorvastatin Calcium 20 MG TAB PO SCH (21:23)
[2022-11-08] MEDS: Morphine ER 15 MG TAB PO PRN (23:03)
[2022-11-08 23:30] LABS: #Monocytes 1.1 thou/uL (0.11-0.59); #Neutrophils 3.4 thou/uL (1.40-6.50); %Basophils 0.2 % (0.0-1.0); %Lymphocytes 11.3 % (21.0-51.0); %Monocytes 20.4 % (0.0-10.0); %Neutrophils 63.6 % (42.0-75.0); Hemoglobin 7.6 g/dL (14.0-18.0); Manual Diff?? YES; Mean Corpuscular HGB CONC 31.3 g/dL (32.0-36.0); Mean Corpuscular Volume 92.7 fl (78.0-98.0); Mean Platelet Volume 11.6 fL (7.4-10.4); Platelet Count 105 10x3/uL (130-400); RBC Distribution Width 18.2 % (11.5-14.5); Red Blood Cell (RBC) Count 2.62 mill/uL (4.70-6.10); White Blood Cell (WBC) Count 5.4 10x3/uL (4.8-10.8)
[2022-11-09 00:07] LABS: Anisocytosis SLIGHT = 6-15 cells HPF (0-5); Band 9 % (5-11); CellaVision Operator ID lab.sh2; Hypochromia SLIGHT = 6-15 cells HPF (0-5); Lymphocytes 6 % (21-51); Monocytes 14 % (0-10); Neutrophil 71 % (42-75); Nucleated RBC (Manual Ct) 5 % (0); Platelet Morphology Comment Platelets Decreased; Polychromasia SLIGHT = 2-3 cells HPF (0-2); Total Cell Count 100
[2022-11-09] MEDS: Sodium Chloride 0.9% 1,000 ML IV SCH ×2 (06:02→08:14)
[2022-11-09 06:03] LABS: #Monocytes 1.1 thou/uL (0.11-0.59); #Neutrophils 2.9 thou/uL (1.40-6.50); %Basophils 0.2 % (0.0-1.0); %Lymphocytes 10.1 % (21.0-51.0); %Monocytes 23.7 % (0.0-10.0); %Neutrophils 61.3 % (42.0-75.0); Hemoglobin 7.1 g/dL (14.0-18.0); Manual Diff?? YES; Mean Corpuscular Hemoglobin 28.9 pg (27.0-31.0); Mean Corpuscular Volume 93.1 fl (78.0-98.0); Mean Platelet Volume 12.1 fL (7.4-10.4); Platelet Count 103 10x3/uL (130-400); RBC Distribution Width 18.4 % (11.5-14.5); Red Blood Cell (RBC) Count 2.46 mill/uL (4.70-6.10); White Blood Cell (WBC) Count 4.7 10x3/uL (4.8-10.8)
[2022-11-09] MEDS: oxyCODONE 5 MG TAB PO PRN ×2 (06:11→14:29)
[2022-11-09 06:23] LABS: ALT (SGPT) 10 U/L (8-55); AST (SGOT) 12 U/L (5-34); Albumin 3.2 g/dL (3.4-4.8); Alkaline Phosphatase 268 U/L (40-110); Anion Gap 11 mmol/L (10-20); BUN (Urea Nitrogen) 15 mg/dL (8.4-25.7); Bilirubin, Total 0.4 mg/dL (0.2-1.2); Calc. Creatinine Clearance 126 mL/min (70-130); Calcium 8.8 mg/dL (7.8-10.44); Carbon Dioxide 26 mmol/L (23-31); Chloride 110 mmol/L (98-107); Estimated GFR 96; Globulin 2.3 g/dL (2.4-3.5); Glucose 94 mg/dL (80-115); Magnesium 1.8 mg/dL (1.6-2.6); Potassium 3.8 mmol/L (3.5-5.1); Protein, Total 5.5 g/dL (5.8-8.1); Sodium 143 mmol/L (136-145)
[2022-11-09 06:28] LABS: Phosphorus 4.1 mg/dL (2.3-4.7)
[2022-11-09 07:27] LABS: Bacteria/HPF None Seen HPF (None Seen); Bilirubin Negative (Negative); Blood, Urine Negative (Negative); Clarity Clear (Clear); Glucose, Urine (Dipstick) 100 mg/dL (Negative); Ketone, Urine Negative (Negative); Leukocyte Negative Leu/uL (Negative); Nitrite Negative (Negative); Protein, Urine (Dipstick) Negative (Neg-Trace); RBC/HPF None Seen HPF (0-3); Specific Gravity, Urine 1.019 (1.002-1.036); Squamous Epithelial None Seen HPF (0-3); Urobilinogen Normal mg/dL (Less than 2); WBC/HPF 0-3 HPF (0-3); pH, Urine 5.5 (5.0-9.0)
[2022-11-09 07:46] LABS: Band 13 % (5-11); CellaVision Operator ID LAB.GE; Lymphocytes 9 % (21-51); Macrocytosis SLIGHT = 6-15 cells HPF (0-5); Monocytes 12 % (0-10); Myelocyte 1 % (0-0); Neutrophil 65 % (42-75); Platelet Morphology Comment Platelets Decreased; Polychromasia SLIGHT = 2-3 cells HPF (0-2); RBC Morphology Within Normal Limits; Smudge Cells 5.9 %; Total Cell Count 101; Toxic Granulation SLIGHT
[2022-11-09] MEDS ORDERED: PALONOSETRON HCL 0.05 MG/ML 5 ML VIAL IVP SCH (08:00)
[2022-11-09] MEDS: Gabapentin 300 MG CAP PO SCH ×3 (08:17→20:14)
[2022-11-09] MEDS: Sodium Bicarbonate Tab 325 MG TAB PO SCH ×2 (08:17→09:43)
[2022-11-09] MEDS: ALPRAZolam 0.5 MG TAB PO PRN (08:33)
[2022-11-09] MEDS: Morphine ER 15 MG TAB PO PRN (09:18)
[2022-11-09] MEDS: SODIUM CHLORIDE 0.9% IVPB SCH ×5 (09:47→20:16)
[2022-11-09] MEDS: MESNA IVPB SCH ×4 (09:47→20:16)
[2022-11-09] MEDS: DOXORUBICIN IVPB SCH (10:07)
[2022-11-09] MEDS: IFOSFAMIDE IVPB SCH (10:19)
[2022-11-09] MEDS: Morphine 2 MG/ML VIAL SLOW IVP PRN ×2 (16:25→22:04)
[2022-11-09] MEDS: Atorvastatin Calcium 20 MG TAB PO SCH (20:14)
[2022-11-10] MEDS: Morphine 2 MG/ML VIAL SLOW IVP PRN ×3 (04:31→20:59)
[2022-11-10 04:37] LABS: #Neutrophils 8.2 thou/uL (1.40-6.50); %Basophils 0.1 % (0.0-1.0); %Monocytes 9.9 % (0.0-10.0); %Neutrophils 83.3 % (42.0-75.0); Hemoglobin 7.5 g/dL (14.0-18.0); Mean Corpuscular HGB CONC 31.4 g/dL (32.0-36.0); Mean Corpuscular Hemoglobin 29.2 pg (27.0-31.0); Mean Platelet Volume 12.2 fL (7.4-10.4); Platelet Count 137 10x3/uL (130-400); RBC Distribution Width 19.1 % (11.5-14.5); Red Blood Cell (RBC) Count 2.57 mill/uL (4.70-6.10); White Blood Cell (WBC) Count 9.9 10x3/uL (4.8-10.8)
[2022-11-10 04:55] LABS: Bacteria/HPF None Seen HPF (None Seen); Bilirubin Negative (Negative); Blood, Urine Negative (Negative); Clarity Clear (Clear); Glucose, Urine (Dipstick) Greater than 1000 mg/dL (Negative); Ketone, Urine Greater than 150 mg/dL (Negative); Leukocyte Negative Leu/uL (Negative); Nitrite Negative (Negative); Protein, Urine (Dipstick) 10 mg/dL (Neg-Trace); RBC/HPF 0-3 HPF (0-3); Specific Gravity, Urine 1.026 (1.002-1.036); Squamous Epithelial 0-3 HPF (0-3); Urobilinogen Normal mg/dL (Less than 2); WBC/HPF 0-3 HPF (0-3); pH, Urine 5.5 (5.0-9.0)
[2022-11-10 05:19] LABS: ALT (SGPT) 12 U/L (8-55); AST (SGOT) 12 U/L (5-34); Albumin 3.4 g/dL (3.4-4.8); Alkaline Phosphatase 275 U/L (40-110); Anion Gap 11 mmol/L (10-20); BUN (Urea Nitrogen) 16 mg/dL (8.4-25.7); Bilirubin, Total 0.4 mg/dL (0.2-1.2); Calc. Creatinine Clearance 137 mL/min (70-130); Calcium 9.4 mg/dL (7.8-10.44); Carbon Dioxide 22 mmol/L (23-31); Chloride 111 mmol/L (98-107); Estimated GFR 99; Globulin 2.5 g/dL (2.4-3.5); Glucose 134 mg/dL (80-115); Magnesium 1.8 mg/dL (1.6-2.6); Phosphorus 3.2 mg/dL (2.3-4.7); Potassium 4.3 mmol/L (3.5-5.1); Protein, Total 5.9 g/dL (5.8-8.1); Sodium 140 mmol/L (136-145)
[2022-11-10] MEDS: Gabapentin 300 MG CAP PO SCH ×3 (08:35→20:56)
[2022-11-10] MEDS: oxyCODONE 5 MG TAB PO PRN (08:36)
[2022-11-10] MEDS: ALPRAZolam 0.5 MG TAB PO PRN (08:36)
[2022-11-10] MEDS: SODIUM CHLORIDE 0.9% IVPB SCH ×5 (09:47→20:56)
[2022-11-10] MEDS: MESNA IVPB SCH ×4 (09:47→20:56)
[2022-11-10] MEDS: IFOSFAMIDE IVPB SCH (10:31)
[2022-11-10] MEDS: DOXORUBICIN IVPB SCH (13:36)
[2022-11-10] MEDS: Atorvastatin Calcium 20 MG TAB PO SCH (20:56)
[2022-11-11 04:35] LABS: Bacteria/HPF None Seen HPF (None Seen); Bilirubin Negative (Negative); Blood, Urine Negative (Negative); Clarity Clear (Clear); Glucose, Urine (Dipstick) Greater than 1000 mg/dL (Negative); Ketone, Urine Greater than 150 mg/dL (Negative); Leukocyte Negative Leu/uL (Negative); Nitrite Negative (Negative); Protein, Urine (Dipstick) Negative (Neg-Trace); RBC/HPF None Seen HPF (0-3); Specific Gravity, Urine 1.021 (1.002-1.036); Squamous Epithelial None Seen HPF (0-3); Urobilinogen Normal mg/dL (Less than 2); WBC/HPF 0-3 HPF (0-3); pH, Urine 5.5 (5.0-9.0)
[2022-11-11 06:11] LABS: #Monocytes 1.4 thou/uL (0.11-0.59); #Neutrophils 7.7 thou/uL (1.40-6.50); %Basophils 0.2 % (0.0-1.0); %Lymphocytes 3.6 % (21.0-51.0); %Monocytes 14.9 % (0.0-10.0); %Neutrophils 80.5 % (42.0-75.0); Hemoglobin 7.3 g/dL (14.0-18.0); Mean Corpuscular HGB CONC 30.8 g/dL (32.0-36.0); Mean Corpuscular Hemoglobin 29.4 pg (27.0-31.0); Mean Corpuscular Volume 95.6 fl (78.0-98.0); Mean Platelet Volume 11.6 fL (7.4-10.4); Platelet Count 136 10x3/uL (130-400); RBC Distribution Width 20.3 % (11.5-14.5); Red Blood Cell (RBC) Count 2.48 mill/uL (4.70-6.10); White Blood Cell (WBC) Count 9.6 10x3/uL (4.8-10.8)
[2022-11-11 06:37] LABS: ALT (SGPT) 11 U/L (8-55); AST (SGOT) 9 U/L (5-34); Albumin 3.2 g/dL (3.4-4.8); Alkaline Phosphatase 223 U/L (40-110); Anion Gap 10 mmol/L (10-20); BUN (Urea Nitrogen) 19 mg/dL (8.4-25.7); Bilirubin, Total 0.3 mg/dL (0.2-1.2); Calc. Creatinine Clearance 140 mL/min (70-130); Calcium 9.2 mg/dL (7.8-10.44); Carbon Dioxide 22 mmol/L (23-31); Chloride 113 mmol/L (98-107); Estimated GFR 100; Globulin 2.2 g/dL (2.4-3.5); Glucose 104 mg/dL (80-115); Phosphorus 3.4 mg/dL (2.3-4.7); Protein, Total 5.4 g/dL (5.8-8.1); Sodium 141 mmol/L (136-145)
[2022-11-11] MEDS: Gabapentin 300 MG CAP PO SCH ×3 (09:12→20:32)
[2022-11-11] MEDS: ALPRAZolam 0.5 MG TAB PO PRN (09:12)
[2022-11-11] MEDS: Sodium Chloride 0.9% 1,000 ML IV SCH ×3 (09:13→22:39)
[2022-11-11] MEDS: Sodium Bicarbonate Tab 325 MG TAB PO SCH (09:14)
[2022-11-11] MEDS: SODIUM CHLORIDE 0.9% IVPB SCH ×5 (09:23→20:34)
[2022-11-11] MEDS: MESNA IVPB SCH ×4 (09:23→20:34)
[2022-11-11] MEDS: Morphine 2 MG/ML VIAL SLOW IVP PRN ×2 (09:24→22:10)
[2022-11-11] MEDS: IFOSFAMIDE IVPB SCH (10:08)
[2022-11-11] MEDS: DOXORUBICIN IVPB SCH (14:28)
[2022-11-11] MEDS: oxyCODONE 5 MG TAB PO PRN (15:12)
[2022-11-11] MEDS: Atorvastatin Calcium 20 MG TAB PO SCH (20:32)
[2022-11-12 04:40] LABS: #Neutrophils 4.9 thou/uL (1.40-6.50); %Basophils 0.2 % (0.0-1.0); %Monocytes 15.2 % (0.0-10.0); %Neutrophils 78.8 % (42.0-75.0); Hemoglobin 6.9 g/dL (14.0-18.0); Mean Corpuscular HGB CONC 29.7 g/dL (32.0-36.0); Mean Corpuscular Hemoglobin 28.5 pg (27.0-31.0); Mean Corpuscular Volume 95.9 fl (78.0-98.0); Mean Platelet Volume 11.6 fL (7.4-10.4); Platelet Count 135 10x3/uL (130-400); RBC Distribution Width 20.7 % (11.5-14.5); Red Blood Cell (RBC) Count 2.42 mill/uL (4.70-6.10); White Blood Cell (WBC) Count 6.3 10x3/uL (4.8-10.8)
[2022-11-12 04:59] LABS: Bacteria/HPF None Seen HPF (None Seen); Bilirubin Negative (Negative); Blood, Urine Negative (Negative); Clarity Clear (Clear); Glucose, Urine (Dipstick) 200 mg/dL (Negative); Ketone, Urine 60 mg/dL (Negative); Leukocyte Negative Leu/uL (Negative); Nitrite Negative (Negative); Protein, Urine (Dipstick) 20 mg/dL (Neg-Trace); RBC/HPF None Seen HPF (0-3); Specific Gravity, Urine 1.015 (1.002-1.036); Squamous Epithelial None Seen HPF (0-3); Urobilinogen Normal mg/dL (Less than 2); WBC/HPF 0-3 HPF (0-3)
[2022-11-12 05:11] LABS: ALT (SGPT) 11 U/L (8-55); AST (SGOT) 10 U/L (5-34); Albumin 3.1 g/dL (3.4-4.8); Alkaline Phosphatase 185 U/L (40-110); Anion Gap 8 mmol/L (10-20); BUN (Urea Nitrogen) 20 mg/dL (8.4-25.7); Bilirubin, Total 0.3 mg/dL (0.2-1.2); Calc. Creatinine Clearance 144 mL/min (70-130); Calcium 8.8 mg/dL (7.8-10.44); Carbon Dioxide 23 mmol/L (23-31); Chloride 114 mmol/L (98-107); Estimated GFR 101; Glucose 88 mg/dL (80-115); Magnesium 2.1 mg/dL (1.6-2.6); Phosphorus 3.1 mg/dL (2.3-4.7); Potassium 3.5 mmol/L (3.5-5.1); Protein, Total 5.1 g/dL (5.8-8.1); Sodium 141 mmol/L (136-145)
[2022-11-12 07:59] LABS: RBC Morphology Within Normal Limits
[2022-11-12] MEDS: Gabapentin 300 MG CAP PO SCH ×3 (09:08→20:32)
[2022-11-12] MEDS: Sodium Bicarbonate Tab 325 MG TAB PO SCH (09:08)
[2022-11-12] MEDS: ALPRAZolam 0.5 MG TAB PO PRN (09:09)
[2022-11-12] MEDS: SODIUM CHLORIDE 0.9% IVPB SCH ×4 (09:37→20:29)
[2022-11-12] MEDS: MESNA IVPB SCH ×4 (09:37→20:29)
[2022-11-12] MEDS: Morphine 2 MG/ML VIAL SLOW IVP PRN ×2 (10:20→20:39)
[2022-11-12] MEDS: IFOSFAMIDE IVPB SCH (10:23)
[2022-11-12] MEDS: oxyCODONE 5 MG TAB PO PRN (15:38)
[2022-11-12] MEDS: Sodium Chloride 0.9% 1,000 ML IV SCH (15:42)
[2022-11-12] MEDS: Atorvastatin Calcium 20 MG TAB PO SCH (20:31)
[2022-11-12] MEDS: Morphine ER 15 MG TAB PO PRN (22:38)
[2022-11-13 04:17] LABS: Bacteria/HPF None Seen HPF (None Seen); RBC/HPF 0-3 HPF (0-3); Squamous Epithelial None Seen HPF (0-3); WBC/HPF 0-3 HPF (0-3)
[2022-11-13 04:20] LABS: Bilirubin Negative (Negative); Blood, Urine Negative (Negative); Glucose, Urine (Dipstick) 100 mg/dL (Negative); Ketone, Urine 40 mg/dL (Negative); Leukocyte Negative (Negative); Nitrite Negative (Negative); Protein, Urine (Dipstick) Trace mg/dL (Neg-Trace); Specific Gravity, Urine 1.015 (1.005-1.030); Urobilinogen 0.2 mg/dL (Less than 2); pH, Urine 7.5 (5.0-9.0)
[2022-11-13 04:24] LABS: Clarity Hazy (Clear)
[2022-11-13] MEDS: Sodium Chloride 0.9% 1,000 ML IV SCH (05:42)
[2022-11-13] MEDS: Morphine 2 MG/ML VIAL SLOW IVP PRN (05:43)
[2022-11-13 06:00] LABS: #Monocytes 0.2 thou/uL (0.11-0.59); #Neutrophils 3.9 thou/uL (1.40-6.50); %Lymphocytes 6.8 % (21.0-51.0); %Monocytes 5.5 % (0.0-10.0); %Neutrophils 87.5 % (42.0-75.0); Hemoglobin 8.3 g/dL (14.0-18.0); Mean Corpuscular Hemoglobin 28.3 pg (27.0-31.0); Mean Corpuscular Volume 94.5 fl (78.0-98.0); Mean Platelet Volume 11.4 fL (7.4-10.4); Platelet Count 146 10x3/uL (130-400); RBC Distribution Width 20.2 % (11.5-14.5); Red Blood Cell (RBC) Count 2.93 mill/uL (4.70-6.10); White Blood Cell (WBC) Count 4.4 10x3/uL (4.8-10.8)
[2022-11-13 06:30] LABS: ALT (SGPT) 15 U/L (8-55); AST (SGOT) 14 U/L (5-34); Albumin 3.1 g/dL (3.4-4.8); Alkaline Phosphatase 161 U/L (40-110); Anion Gap 7 mmol/L (10-20); BUN (Urea Nitrogen) 17 mg/dL (8.4-25.7); Bilirubin, Total 0.5 mg/dL (0.2-1.2); Calc. Creatinine Clearance 142 mL/min (70-130); Calcium 8.8 mg/dL (7.8-10.44); Carbon Dioxide 20 mmol/L (23-31); Chloride 117 mmol/L (98-107); Estimated GFR 100; Glucose 96 mg/dL (80-115); Potassium 3.2 mmol/L (3.5-5.1); Protein, Total 5.1 g/dL (5.8-8.1); Sodium 141 mmol/L (136-145)
[2022-11-13] MEDS: ALPRAZolam 0.5 MG TAB PO PRN (08:14)
[2022-11-13] MEDS: Gabapentin 300 MG CAP PO SCH ×2 (08:15→13:31)
[2022-11-13] MEDS: Sodium Bicarbonate Tab 325 MG TAB PO SCH (08:18)
[2022-11-13] MEDS ORDERED: Potassium Chloride 20 MEQ TAB PO SCH (12:15)
[2022-11-13 15:24] VITALS: BP 148/83; TEMP 97.9
[2022-11-13] MEDS ORDERED: PEGFILGRASTIM-JMDB 6 MG/0.6 ML SYRINGE SQ SCH (17:00)
== END 2022-11-13 18:35 | disposition home or self-care (01) | DRG 846 ==
LOC: MSONC 12:09
PROVIDERS: ADMIT Internal Medicine; ATTEND Internal Medicine
PROC: 3E03305 Introduction of Other Antineoplastic into Peripheral Vein, Percutaneous Approach (ICD-10-PCS; principal; 2022-11-08)
PROC: 30233N1 Transfusion of Nonautologous Red Blood Cells into Peripheral Vein, Percutaneous Approach (ICD-10-PCS; 2022-11-08)
DX: Z51.11 Encounter for antineoplastic chemotherapy (principal); D61.810 Antineoplastic chemotherapy induced pancytopenia; C78.01 Secondary malignant neoplasm of right lung; C79.51 Secondary malignant neoplasm of bone; C78.02 Secondary malignant neoplasm of left lung; I82.412 Acute embolism and thrombosis of left femoral vein; I82.432 Acute embolism and thrombosis of left popliteal vein; C49.9 Malignant neoplasm of connective and soft tissue, unspecified; C76.52 Malignant neoplasm of left lower limb; T45.1X5A Adverse effect of antineoplastic and immunosuppressive drugs, initial encounter; E66.9 Obesity, unspecified; Z88.0 Allergy status to penicillin; Z79.899 Other long term (current) drug therapy; Z68.33 Body mass index [BMI] 33.0-33.9, adult
CPT/HCPCS: 36430; 80053; 81001; 83735; 84100; 85014; 85018; 85025; 86850; 86900; 86901; J0360; J1100; J1453; J1642; J2272; J2469; J3490; J7050; J9000; J9208; J9209; P9016; Q5108

== ENCOUNTER 2022-12-16 10:40 | Day surgery (SDC) | payer OTHER ==
[2022-12-16] MEDS ORDERED: Acetaminophen 500 MG TAB PO SCH (11:00)
[2022-12-16] MEDS ORDERED: diphenhydrAMINE 25 MG CAP PO SCH (11:00)
[2022-12-16] MEDS ORDERED: diphenhydrAMINE 25 MG CAP ONE (11:06)
[2022-12-16] MEDS ORDERED: Acetaminophen 500 MG TAB ONE (11:06)
[2022-12-16 12:29] VITALS: BP 127/61; TEMP 98.5
== END 2022-12-16 12:31 | disposition home or self-care (01) ==
LOC: ONC/OP 10:40
PROVIDERS: ATTEND Internal Medicine
DX: D64.9 Anemia, unspecified (principal); D69.6 Thrombocytopenia, unspecified
CPT/HCPCS: 36430; 86850; 86900; 86901; J1642; P9035

== ENCOUNTER 2022-12-20 10:18 | Day surgery (SDC) | payer OTHER ==
[2022-12-20] MEDS ORDERED: Acetaminophen 500 MG TAB PO SCH (10:45)
[2022-12-20] MEDS ORDERED: diphenhydrAMINE 25 MG CAP PO SCH (10:45)
[2022-12-20] MEDS ORDERED: Acetaminophen 500 MG TAB ONE (11:23)
[2022-12-20] MEDS ORDERED: diphenhydrAMINE 25 MG CAP ONE (11:23)
[2022-12-20 16:12] VITALS: BP 106/55; TEMP 97.8
== END 2022-12-20 12:50 | disposition home or self-care (01) ==
LOC: ONC/OP 10:18
PROVIDERS: ATTEND Internal Medicine
DX: D64.9 Anemia, unspecified (principal); D69.6 Thrombocytopenia, unspecified
CPT/HCPCS: 36415; 36430; 80053; 86850; 86900; 86901; P9035

== ENCOUNTER 2022-12-23 09:11 | Day surgery (SDC) | payer OTHER ==
[2022-12-23] MEDS ORDERED: Acetaminophen 500 MG TAB ONE (10:06)
[2022-12-23] MEDS ORDERED: diphenhydrAMINE 25 MG CAP ONE (10:08)
[2022-12-23] MEDS ORDERED: diphenhydrAMINE 25 MG CAP PO SCH (10:15)
[2022-12-23] MEDS ORDERED: Acetaminophen 500 MG TAB PO SCH (10:15)
[2022-12-23 13:48] VITALS: BP 149/69; TEMP 97.7
== END 2022-12-23 13:48 | disposition home or self-care (01) ==
LOC: ONC/OP 09:11
PROVIDERS: ATTEND Internal Medicine
DX: D64.9 Anemia, unspecified (principal); D69.6 Thrombocytopenia, unspecified
CPT/HCPCS: 36430; 86850; 86900; 86901; J1642; P9016; P9035

== ENCOUNTER 2023-01-03 11:58 | Outpatient (CLI) | payer OTHER ==
[2023-01-03] MEDS ORDERED: Acetaminophen 500 MG TAB PO SCH (12:30)
[2023-01-03] MEDS ORDERED: diphenhydrAMINE 25 MG CAP PO SCH (12:30)
[2023-01-03] MEDS ORDERED: diphenhydrAMINE 25 MG CAP ONE (12:43)
[2023-01-03] MEDS ORDERED: Acetaminophen 500 MG TAB ONE (12:43)
[2023-01-03 15:31] VITALS: BP 121/60; TEMP 97.9
== END 2023-01-03 15:41 | disposition home or self-care (01) ==
LOC: ONC/OP 11:58
PROVIDERS: ATTEND Internal Medicine
DX: D69.6 Thrombocytopenia, unspecified (principal); D64.9 Anemia, unspecified
CPT/HCPCS: 36430; 86850; 86900; 86901; J1642; P9016

== ENCOUNTER 2023-04-18 09:49 | Emergency (ER) | payer OTHER ==
[2023-04-18] MEDS ORDERED: Morphine 4 MG/ML VIAL ONE ×2 (11:07)
[2023-04-18] MEDS ORDERED: Ketorolac Tromethamine 30 MG/ML VIAL ONE (11:07)
== END 2023-04-18 11:44 | disposition home or self-care (01) ==
LOC: ERS 09:49
DX: M79.621 Pain in right upper arm (principal); E78.5 Hyperlipidemia, unspecified; I10 Essential (primary) hypertension; Z79.899 Other long term (current) drug therapy
CPT/HCPCS: 36415; 80053; 96372; J1885; J2270

== ENCOUNTER 2023-05-02 17:34 | Inpatient (IN) | payer OTHER ==
[2023-05-02] MEDS ORDERED: HYDROmorphone 0.5 MG/0.5 ML SYRINGE ONE (18:59)
[2023-05-02] MEDS ORDERED: Ondansetron PF 4 MG/2 ML Vial IVP PRN (20:45)
[2023-05-02] MEDS ORDERED: Ondansetron ODT 4 MG TAB SL PRN (20:45)
[2023-05-02] MEDS ORDERED: Acetaminophen 325 MG TAB PO PRN (22:30)
[2023-05-02] MEDS ORDERED: Acetaminophen 650 MG Suppository PR PRN (22:30)
[2023-05-02 23:37] VITALS: BMI 33.2
[2023-05-03] MEDS ORDERED: Morphine ER 15 MG TAB PO PRN (02:33)
[2023-05-03] MEDS ORDERED: oxyCODONE 5 MG TAB PO PRN (02:42)
[2023-05-03] MEDS ORDERED: Morphine 4 MG/ML VIAL SLOW IVP SCH (02:45)
[2023-05-03 05:46] LABS: #Eosinphils 0.1 thou/uL (0.0-0.7); #Monocytes 0.5 thou/uL (0.11-0.59); #Neutrophils 3.5 thou/uL (1.40-6.50); %Basophils 0.4 % (0.0-1.0); %Eosinophils 1.7 % (0.0-10.0); %Lymphocytes 15.1 % (21.0-51.0); %Monocytes 10.7 % (0.0-10.0); %Neutrophils 71.9 % (42.0-75.0); Hematocrit 32.4 % (42.0-52.0); Hemoglobin 10.1 g/dL (14.0-18.0); Mean Corpuscular HGB CONC 31.2 g/dL (32.0-36.0); Mean Corpuscular Hemoglobin 31.2 pg (27.0-31.0); Mean Platelet Volume 11.2 fL (7.4-10.4); Platelet Count 144 10x3/uL (130-400); RBC Distribution Width 14.4 % (11.5-14.5); Red Blood Cell (RBC) Count 3.24 mill/uL (4.70-6.10); White Blood Cell (WBC) Count 4.8 10x3/uL (4.8-10.8)
[2023-05-03 06:13] LABS: Anion Gap 12 mmol/L (10-20); BUN (Urea Nitrogen) 18 mg/dL (8.4-25.7); Calc. Creatinine Clearance 108 mL/min (70-130); Calcium 9.5 mg/dL (7.8-10.44); Carbon Dioxide 27 mmol/L (23-31); Chloride 106 mmol/L (98-107); Estimated GFR 80; Glucose 95 mg/dL (80-115); Potassium 3.2 mmol/L (3.5-5.1); Sodium 142 mmol/L (136-145)
[2023-05-03] MEDS ORDERED: hydrALAZINE 20 MG/ML VIAL SLOW IVP PRN (07:27)
[2023-05-03] MEDS ORDERED: Potassium Chloride 20 MEQ TAB PO SCH ×2 (07:30→08:00)
[2023-05-03] MEDS ORDERED: Electrolyte Replacement Protocol 1 EACH FS SCH (07:30)
[2023-05-03] MEDS: ALPRAZolam 0.5 MG TAB PO SCH (08:19)
[2023-05-03] MEDS: Gabapentin 300 MG CAP PO SCH ×3 (08:19→21:36)
[2023-05-03] MEDS: Amlodipine 5 MG TAB PO SCH (08:25)
[2023-05-03] MEDS ORDERED: Diphenoxylate HCl/Atropine Tablet PO PRN (15:16)
[2023-05-03] MEDS ORDERED: OxyCODONE IR 30 MG TAB PO PRN (15:23)
[2023-05-03] MEDS ORDERED: fentaNYL 50 mcg/hour Patch TD SCH (16:00)
[2023-05-03] MEDS: oxyCODONE 5 MG TAB PO PRN ×2 (16:28→23:24)
[2023-05-03] MEDS: Atorvastatin Calcium 20 MG TAB PO SCH (21:37)
[2023-05-03] MEDS: Morphine ER 15 MG TAB PO PRN (21:37)
[2023-05-04 04:57] LABS: #Monocytes 0.5 thou/uL (0.11-0.59); #Neutrophils 5.4 thou/uL (1.40-6.50); %Basophils 0.3 % (0.0-1.0); %Eosinophils 0.5 % (0.0-10.0); %Lymphocytes 9.5 % (21.0-51.0); %Monocytes 7.5 % (0.0-10.0); %Neutrophils 81.9 % (42.0-75.0); Hematocrit 31.7 % (42.0-52.0); Hemoglobin 9.9 g/dL (14.0-18.0); Mean Corpuscular HGB CONC 31.2 g/dL (32.0-36.0); Mean Corpuscular Hemoglobin 30.9 pg (27.0-31.0); Mean Corpuscular Volume 99.1 fl (78.0-98.0); Mean Platelet Volume 11.1 fL (7.4-10.4); Platelet Count 141 10x3/uL (130-400); RBC Distribution Width 14.3 % (11.5-14.5); White Blood Cell (WBC) Count 6.6 10x3/uL (4.8-10.8)
[2023-05-04 05:26] LABS: ALT (SGPT) 24 U/L (8-55); AST (SGOT) 44 U/L (5-34); Albumin 3.4 g/dL (3.4-4.8); Alkaline Phosphatase 303 U/L (40-110); Anion Gap 14 mmol/L (10-20); BUN (Urea Nitrogen) 16 mg/dL (8.4-25.7); Bilirubin, Total 0.4 mg/dL (0.2-1.2); Calc. Creatinine Clearance 105 mL/min (70-130); Calcium 9.1 mg/dL (7.8-10.44); Carbon Dioxide 26 mmol/L (23-31); Chloride 107 mmol/L (98-107); Estimated GFR 78; Globulin 2.3 g/dL (2.4-3.5); Glucose 123 mg/dL (80-115); Potassium 3.6 mmol/L (3.5-5.1); Protein, Total 5.7 g/dL (5.8-8.1); Sodium 143 mmol/L (136-145)
[2023-05-04 05:41] LABS: T4 6.79 ug/dL (4.87-11.72); Thyroid Stimulating Hormone 0.9739 uIU/mL (0.35-4.94)
[2023-05-04] MEDS: Morphine ER 15 MG TAB PO PRN ×2 (09:23→21:50)
[2023-05-04] MEDS: Gabapentin 300 MG CAP PO SCH ×3 (09:25→20:27)
[2023-05-04] MEDS: ALPRAZolam 0.5 MG TAB PO SCH (09:25)
[2023-05-04] MEDS: Amlodipine 5 MG TAB PO SCH ×2 (09:26→09:41)
[2023-05-04] MEDS: D5 0.9% NS w/ 20 mEq KCl 1,000 ML IV SCH ×2 (10:43→20:30)
[2023-05-04] MEDS ORDERED: Clindamycin/D5W 900 MG in Premix 1 BAG IVPB SCH (12:00)
[2023-05-04] MEDS ORDERED: LevoFLOXacin 500 mg/D5W 500 MG in Premix 1 BAG IVPB SCH (12:00)
[2023-05-04] MEDS ORDERED: fentaNYL PF 100 MCG/2 ML SYRINGE ONE (15:00)
[2023-05-04] MEDS ORDERED: fentaNYL 50 mcg/mL 1 mL Vial ONE (15:21)
[2023-05-04] MEDS ORDERED: Rocuronium Bromide 10 MG/ML (10ML VIAL) ONE (15:29)
[2023-05-04] MEDS ORDERED: Ondansetron PF 4 MG/2 ML Vial ONE (15:29)
[2023-05-04] MEDS ORDERED: PROPOFOL 200 MG/20 ML VIAL ONE (15:29)
[2023-05-04] MEDS ORDERED: hydrALAZINE 20 MG/ML VIAL SLOW IVP PRN (15:31)
[2023-05-04] MEDS ORDERED: Sevoflurane 250 ML INH ANEST BOTTLE ONE (15:47)
[2023-05-04] MEDS ORDERED: fentaNYL 50 mcg/hour Patch TD SCH (16:00)
[2023-05-04] MEDS ORDERED: Clindamycin/D5W 900 mg/50 ml Premix Bag ONE (16:18)
[2023-05-04] MEDS ORDERED: SUGAMMADEX SODIUM 200 MG/2 ML VIAL ONE (16:47)
[2023-05-04] MEDS: oxyCODONE 5 MG TAB PO PRN (18:38)
[2023-05-04] MEDS: Atorvastatin Calcium 20 MG TAB PO SCH (20:27)
[2023-05-04] MEDS: Clindamycin 150 MG CAP PO SCH (20:27)
[2023-05-04] MEDS: Cyclobenzaprine 10 MG TAB PO PRN (20:28)
[2023-05-05] MEDS: oxyCODONE 5 MG TAB PO PRN ×2 (02:29→09:38)
[2023-05-05] MEDS ORDERED: Ketorolac Tromethamine 30 MG/ML VIAL IVP SCH (03:15)
[2023-05-05] MEDS: Clindamycin 150 MG CAP PO SCH ×2 (03:16→12:25)
[2023-05-05] MEDS: Cyclobenzaprine 10 MG TAB PO PRN ×2 (04:34→12:23)
[2023-05-05] MEDS: Amlodipine 5 MG TAB PO SCH (09:36)
[2023-05-05] MEDS: ALPRAZolam 0.5 MG TAB PO SCH (09:36)
[2023-05-05] MEDS: Senokot S 8.6-50 MG TAB PO SCH ×3 (09:36→20:23)
[2023-05-05] MEDS: Gabapentin 300 MG CAP PO SCH ×3 (09:36→20:22)
[2023-05-05] MEDS: Polyethylene Glycol 3350 17 GM Packet PO SCH ×2 (09:38→09:45)
[2023-05-05] MEDS: Morphine 4 MG/ML VIAL SLOW IVP PRN ×3 (09:49→21:47)
[2023-05-05] MEDS ORDERED: OxyCODONE IR 30 MG TAB PO PRN (10:28)
[2023-05-05 11:34] LABS: #Eosinphils 0.1 thou/uL (0.0-0.7); #Monocytes 0.9 thou/uL (0.11-0.59); %Basophils 0.3 % (0.0-1.0); %Eosinophils 0.8 % (0.0-10.0); %Lymphocytes 8.7 % (21.0-51.0); %Monocytes 11.7 % (0.0-10.0); %Neutrophils 78.1 % (42.0-75.0); Hematocrit 30.7 % (42.0-52.0); Hemoglobin 9.4 g/dL (14.0-18.0); Mean Corpuscular HGB CONC 30.6 g/dL (32.0-36.0); Mean Corpuscular Hemoglobin 31.1 pg (27.0-31.0); Mean Corpuscular Volume 101.7 fl (78.0-98.0); Mean Platelet Volume 10.6 fL (7.4-10.4); Platelet Count 133 10x3/uL (130-400); RBC Distribution Width 14.8 % (11.5-14.5); Red Blood Cell (RBC) Count 3.02 mill/uL (4.70-6.10); White Blood Cell (WBC) Count 7.6 10x3/uL (4.8-10.8)
[2023-05-05] MEDS: Morphine ER 15 MG TAB PO SCH (20:20)
[2023-05-05] MEDS: Atorvastatin Calcium 20 MG TAB PO SCH (20:21)
[2023-05-05] MEDS: Apixaban 5 MG TAB PO SCH (20:22)
[2023-05-06 05:17] LABS: #Eosinphils 0.1 thou/uL (0.0-0.7); #Neutrophils 5.7 thou/uL (1.40-6.50); %Basophils 0.4 % (0.0-1.0); %Eosinophils 1.4 % (0.0-10.0); %Lymphocytes 11.6 % (21.0-51.0); %Monocytes 12.5 % (0.0-10.0); %Neutrophils 73.7 % (42.0-75.0); Hematocrit 31.4 % (42.0-52.0); Hemoglobin 9.7 g/dL (14.0-18.0); Mean Corpuscular HGB CONC 30.9 g/dL (32.0-36.0); Mean Corpuscular Hemoglobin 31.2 pg (27.0-31.0); Mean Platelet Volume 11.4 fL (7.4-10.4); Platelet Count 145 10x3/uL (130-400); Red Blood Cell (RBC) Count 3.11 mill/uL (4.70-6.10); White Blood Cell (WBC) Count 7.7 10x3/uL (4.8-10.8)
[2023-05-06 05:49] LABS: Anion Gap 12 mmol/L (10-20); BUN (Urea Nitrogen) 13 mg/dL (8.4-25.7); Calc. Creatinine Clearance 114 mL/min (70-130); Calcium 9.9 mg/dL (7.8-10.44); Carbon Dioxide 26 mmol/L (23-31); Chloride 104 mmol/L (98-107); Estimated GFR 85; Glucose 98 mg/dL (80-115); Potassium 3.5 mmol/L (3.5-5.1); Sodium 138 mmol/L (136-145)
[2023-05-06] MEDS: Morphine 4 MG/ML VIAL SLOW IVP PRN ×3 (05:57→13:13)
[2023-05-06] MEDS ORDERED: Potassium Chloride 20 MEQ TAB PO SCH (08:00)
[2023-05-06] MEDS: Senokot S 8.6-50 MG TAB PO SCH (08:10)
[2023-05-06] MEDS: ALPRAZolam 0.5 MG TAB PO SCH (08:10)
[2023-05-06] MEDS: Morphine ER 15 MG TAB PO SCH (08:10)
[2023-05-06] MEDS: Polyethylene Glycol 3350 17 GM Packet PO SCH ×2 (08:10→08:11)
[2023-05-06] MEDS: Gabapentin 300 MG CAP PO SCH (08:11)
[2023-05-06] MEDS: Amlodipine 5 MG TAB PO SCH (08:11)
[2023-05-06 08:30] VITALS: BP 128/69; TEMP 98.6
[2023-05-06] MEDS: Apixaban 5 MG TAB PO SCH (13:58)
== END 2023-05-06 14:25 | disposition home or self-care (01) | DRG 493 ==
LOC: ERS 17:34 → MSONC 20:27 → OBSVTOIN 05-03 14:29
PROVIDERS: ADMIT Student in an Organized Health Care Education/Training Program; ATTEND Family Medicine
PROC: 0PSF06Z Reposition Right Humeral Shaft with Intramedullary Internal Fixation Device, Open Approach (ICD-10-PCS; principal; 2023-05-04)
DX: M84.521A Pathological fracture in neoplastic disease, right humerus, initial encounter for fracture (principal); C49.9 Malignant neoplasm of connective and soft tissue, unspecified; I10 Essential (primary) hypertension; E87.6 Hypokalemia; E78.5 Hyperlipidemia, unspecified; Z88.0 Allergy status to penicillin; Z79.899 Other long term (current) drug therapy; Z90.89 Acquired absence of other organs; Z98.890 Other specified postprocedural states; Z86.718 Personal history of other venous thrombosis and embolism
CPT/HCPCS: 36415; 80048; 80053; 84436; 84443; 85025; 88307; 88311; 96374; C1713; C1776; J1170; J1650; J1885; J2270; J3010; J3480; J3490

== ENCOUNTER 2023-05-18 13:51 | Emergency (ER) | payer OTHER | END 2023-05-18 17:24 | disposition home or self-care (01) | LOC: ERS 13:51 | DX: M25.511 Pain in right shoulder (principal); I10 Essential (primary) hypertension; W07.XXXA Fall from chair, initial encounter; Z48.817 Encounter for surgical aftercare following surgery on the skin and subcutaneous tissue; Z79.01 Long term (current) use of anticoagulants; Z79.899 Other long term (current) drug therapy ==

== ENCOUNTER 2023-06-03 11:47 | Day surgery (SDC) | payer OTHER ==
[2023-06-03] MEDS ORDERED: Acetaminophen 500 MG TAB PO SCH (12:15)
[2023-06-03] MEDS ORDERED: diphenhydrAMINE 25 MG CAP PO SCH (12:15)
[2023-06-03] MEDS ORDERED: Acetaminophen 500 MG TAB ONE (12:58)
[2023-06-03] MEDS ORDERED: diphenhydrAMINE 25 MG CAP ONE (12:58)
[2023-06-03] MEDS ORDERED: FLU VACC QS2023-24(6MOS UP)/PF 60 MCG/0.5 ML SYRINGE IM ONE (17:30)
[2023-06-03 17:40] VITALS: BP 152/82; TEMP 98.1
== END 2023-06-03 17:50 | disposition short-term general hospital (02) ==
LOC: ONC/OP 11:47
PROVIDERS: ATTEND Internal Medicine
DX: D64.9 Anemia, unspecified (principal); D69.59 Other secondary thrombocytopenia
CPT/HCPCS: 36430; 86850; 86900; 86901; J1642; P9016

== ENCOUNTER 2023-06-03 17:58 | Inpatient (IN) | payer OTHER ==
[2023-06-03 18:54] LABS: #Eosinphils 0.1 thou/uL (0.0-0.7); #Monocytes 0.6 thou/uL (0.11-0.59); %Basophils 0.2 % (0.0-1.0); %Lymphocytes 19.4 % (21.0-51.0); %Monocytes 7.4 % (0.0-10.0); %Neutrophils 71.5 % (42.0-75.0); Hematocrit 24.4 % (42.0-52.0); Hemoglobin 7.7 g/dL (14.0-18.0); Mean Corpuscular HGB CONC 31.6 g/dL (32.0-36.0); Mean Corpuscular Hemoglobin 31.6 pg (27.0-31.0); Mean Platelet Volume 11.5 fL (7.4-10.4); Platelet Count 182 10x3/uL (130-400); RBC Distribution Width 20.2 % (11.5-14.5); Red Blood Cell (RBC) Count 2.44 mill/uL (4.70-6.10); White Blood Cell (WBC) Count 8.4 10x3/uL (4.8-10.8)
[2023-06-03 19:18] LABS: ALT (SGPT) 10 U/L (8-55); AST (SGOT) 24 U/L (5-34); Albumin 3.4 g/dL (3.4-4.8); Alkaline Phosphatase 236 U/L (40-110); Anion Gap 14 mmol/L (10-20); BUN (Urea Nitrogen) 25 mg/dL (8.4-25.7); Bilirubin, Total 1.2 mg/dL (0.2-1.2); Calc. Creatinine Clearance 0 mL/min (70-130); Calcium 8.7 mg/dL (7.8-10.44); Carbon Dioxide 25 mmol/L (23-31); Chloride 104 mmol/L (98-107); Estimated GFR 64; Globulin 2.2 g/dL (2.4-3.5); Glucose 94 mg/dL (80-115); Potassium 3.3 mmol/L (3.5-5.1); Protein, Total 5.6 g/dL (5.8-8.1); Sodium 140 mmol/L (136-145)
[2023-06-03 19:21] LABS: Troponin I Less than 0.010 ng/mL (< 0.028)
[2023-06-03] MEDS ORDERED: Morphine ER 15 MG TAB PO PRN (20:29)
[2023-06-03] MEDS ORDERED: Ondansetron PF 4 MG/2 ML Vial IVP PRN (20:32)
[2023-06-03] MEDS ORDERED: Acetaminophen 325 MG TAB PO PRN (20:32)
[2023-06-03] MEDS ORDERED: LORazepam 2 MG/ML SYR.(CARPUJECT) ONE (21:34)
[2023-06-03] MEDS ORDERED: Potassium Chloride 20 MEQ TAB PO SCH (22:00)
[2023-06-03] MEDS ORDERED: Furosemide 20 MG/2 ML VIAL SLOW IVP SCH (22:00)
[2023-06-03] MEDS: oxyCODONE 5 MG TAB PO PRN (22:57)
[2023-06-03 23:17] LABS: Bilirubin Negative (Negative); Blood, Urine Negative (Negative); Clarity Turbid (Clear); Glucose, Urine (Dipstick) 200 mg/dL (Negative); Ketone, Urine Negative (Negative); Leukocyte Negative Leu/uL (Negative); Nitrite Negative (Negative); Protein, Urine (Dipstick) 30 mg/dL (Neg-Trace); RBC/HPF 0-3 HPF (0-3); Specific Gravity, Urine 1.021 (1.002-1.036); Urobilinogen Normal mg/dL (Less than 2); WBC/HPF None Seen HPF (0-3)
[2023-06-03 23:18] LABS: Bacteria/HPF None Seen HPF (None Seen); CAUTI Indications for Culture Dysuria,urgency,freq; Calcium Oxalate Crystals Rare HPF (None Seen); Squamous Epithelial None Seen HPF (0-3)
[2023-06-03 23:20] LABS: Urine Culture Reflex No No
[2023-06-03] MEDS: Morphine 4 MG/ML VIAL SLOW IVP PRN (23:28)
[2023-06-04] MEDS: Atorvastatin Calcium 20 MG TAB PO SCH ×2 (01:06→20:38)
[2023-06-04] MEDS: Gabapentin 300 MG CAP PO SCH ×4 (01:07→20:38)
[2023-06-04] MEDS: fentaNYL 50 mcg/hour Patch TD SCH (01:55)
[2023-06-04 04:01] VITALS: BMI 31.1
[2023-06-04] MEDS: Morphine 4 MG/ML VIAL SLOW IVP PRN ×3 (06:06→21:59)
[2023-06-04 06:09] LABS: #Monocytes 0.5 thou/uL (0.11-0.59); #Neutrophils 5.9 thou/uL (1.40-6.50); %Basophils 0.4 % (0.0-1.0); %Eosinophils 0.5 % (0.0-10.0); %Lymphocytes 14.1 % (21.0-51.0); %Neutrophils 77.6 % (42.0-75.0); Hematocrit 23.4 % (42.0-52.0); Hemoglobin 7.5 g/dL (14.0-18.0); Mean Corpuscular HGB CONC 32.1 g/dL (32.0-36.0); Mean Corpuscular Hemoglobin 32.1 pg (27.0-31.0); Mean Platelet Volume 11.2 fL (7.4-10.4); Platelet Count 167 10x3/uL (130-400); RBC Distribution Width 22.2 % (11.5-14.5); Red Blood Cell (RBC) Count 2.34 mill/uL (4.70-6.10); White Blood Cell (WBC) Count 7.6 10x3/uL (4.8-10.8)
[2023-06-04 06:31] LABS: Anion Gap 13 mmol/L (10-20); BUN (Urea Nitrogen) 21 mg/dL (8.4-25.7); Calc. Creatinine Clearance 93 mL/min (70-130); Calcium 8.8 mg/dL (7.8-10.44); Carbon Dioxide 26 mmol/L (23-31); Chloride 105 mmol/L (98-107); Estimated GFR 72; Glucose 109 mg/dL (80-115); Potassium 3.3 mmol/L (3.5-5.1); Sodium 141 mmol/L (136-145)
[2023-06-04] MEDS ORDERED: Potassium Chloride 20 MEQ TAB PO SCH (09:00)
[2023-06-04] MEDS: ALPRAZolam 0.5 MG TAB PO SCH (09:14)
[2023-06-04] MEDS: oxyCODONE 5 MG TAB PO PRN (09:21)
[2023-06-04] MEDS: Cyclobenzaprine 10 MG TAB PO PRN (14:03)
[2023-06-05 04:39] LABS: Hematocrit 22.8 % (42.0-52.0); Manual Diff?? YES; Mean Corpuscular HGB CONC 30.7 g/dL (32.0-36.0); Mean Corpuscular Hemoglobin 31.7 pg (27.0-31.0); Mean Platelet Volume 11.6 fL (7.4-10.4); Platelet Count 151 10x3/uL (130-400); RBC Distribution Width 23.8 % (11.5-14.5); Red Blood Cell (RBC) Count 2.21 mill/uL (4.70-6.10)
[2023-06-05 04:50] LABS: Delete Auto Diff?? YES; Mean Corpuscular Volume 103.2 fl (78.0-98.0)
[2023-06-05 05:16] LABS: Anion Gap 14 mmol/L (10-20); BUN (Urea Nitrogen) 18 mg/dL (8.4-25.7); Calc. Creatinine Clearance 98 mL/min (70-130); Calcium 8.8 mg/dL (7.8-10.44); Carbon Dioxide 26 mmol/L (23-31); Chloride 105 mmol/L (98-107); Estimated GFR 77; Glucose 96 mg/dL (80-115); Potassium 3.5 mmol/L (3.5-5.1); Sodium 141 mmol/L (136-145)
[2023-06-05 06:13] LABS: Anisocytosis MODERATE=16-30 cells HPF (0-5); CellaVision Operator ID lab.abc; Eosinophils 2 % (0-10); Large Platelets 3.9 % (0-5); Lymphocytes 15 % (21-51); Macrocytosis SLIGHT = 6-15 cells HPF (0-5); Monocytes 4 % (0-10); Neutrophil 78 % (42-75); Platelet Adequacy Comment Platelets Normal; Polychromasia SLIGHT = 2-3 cells HPF (0-2); Total Cell Count 102
[2023-06-05] MEDS: ALPRAZolam 0.5 MG TAB PO SCH (08:17)
[2023-06-05] MEDS: Gabapentin 300 MG CAP PO SCH ×3 (08:17→20:12)
[2023-06-05] MEDS: Amlodipine 10 MG TAB PO SCH (08:18)
[2023-06-05] MEDS: Morphine 4 MG/ML VIAL SLOW IVP PRN ×3 (11:09→20:13)
[2023-06-05] MEDS: oxyCODONE 5 MG TAB PO PRN (11:45)
[2023-06-05] MEDS: Atorvastatin Calcium 20 MG TAB PO SCH (20:13)
[2023-06-05] MEDS ORDERED: PAZOPANIB HCL 200 MG PO SCH (21:00)
[2023-06-05] MEDS: PAZOPANIB HCL 200 MG PO SCH (21:14)
[2023-06-06 04:00] LABS: #Eosinphils 0.1 thou/uL (0.0-0.7); #Monocytes 0.5 thou/uL (0.11-0.59); #Neutrophils 4.4 thou/uL (1.40-6.50); %Basophils 0.3 % (0.0-1.0); %Eosinophils 1.1 % (0.0-10.0); %Lymphocytes 20.3 % (21.0-51.0); %Monocytes 7.8 % (0.0-10.0); Hemoglobin 7.7 g/dL (14.0-18.0); Mean Corpuscular HGB CONC 30.8 g/dL (32.0-36.0); Mean Corpuscular Volume 103.7 fl (78.0-98.0); Mean Platelet Volume 11.2 fL (7.4-10.4); Platelet Count 127 10x3/uL (130-400); RBC Distribution Width 23.4 % (11.5-14.5); Red Blood Cell (RBC) Count 2.41 mill/uL (4.70-6.10); White Blood Cell (WBC) Count 6.3 10x3/uL (4.8-10.8)
[2023-06-06 04:21] LABS: Anion Gap 12 mmol/L (10-20); BUN (Urea Nitrogen) 16 mg/dL (8.4-25.7); Calc. Creatinine Clearance 110 mL/min (70-130); Carbon Dioxide 26 mmol/L (23-31); Chloride 106 mmol/L (98-107); Estimated GFR 88; Glucose 97 mg/dL (80-115); Potassium 3.3 mmol/L (3.5-5.1); Sodium 141 mmol/L (136-145)
[2023-06-06] MEDS: ALPRAZolam 0.5 MG TAB PO SCH (06:08)
[2023-06-06 08:32] LABS: INR-International Normal Ratio 1.2; Prothrombin Time 15.4 sec (12.0-14.7)
[2023-06-06 08:33] LABS: PTT 35.4 sec (22.9-36.1)
[2023-06-06] MEDS: Cyclobenzaprine 10 MG TAB PO PRN (08:56)
[2023-06-06] MEDS: Amlodipine 10 MG TAB PO SCH (08:56)
[2023-06-06] MEDS: Gabapentin 300 MG CAP PO SCH ×3 (08:57→20:15)
[2023-06-06] MEDS ORDERED: Furosemide 100 MG/10 ML VIAL SLOW IVP SCH (09:00)
[2023-06-06] MEDS ORDERED: PAZOPANIB HCL 200 MG PO SCH ×2 (09:00)
[2023-06-06] MEDS: Morphine 4 MG/ML VIAL SLOW IVP PRN ×2 (09:13→15:03)
[2023-06-06] MEDS ORDERED: PROPOFOL 20 ML ONE (11:25)
[2023-06-06] MEDS ORDERED: Midazolam HCl 2 mg/2 ml Vial ONE (11:27)
[2023-06-06] MEDS ORDERED: PROPOFOL 200 MG/20 ML VIAL ONE (11:36)
[2023-06-06] MEDS ORDERED: Clindamycin/D5W 900 mg/50 ml Premix Bag ONE (11:43)
[2023-06-06] MEDS: Furosemide 40 MG/4 ML VIAL SLOW IVP SCH (17:04)
[2023-06-06] MEDS: Atorvastatin Calcium 20 MG TAB PO SCH (20:16)
[2023-06-06] MEDS: oxyCODONE 5 MG TAB PO PRN (20:20)
[2023-06-06] MEDS: Morphine ER 15 MG TAB PO SCH (21:26)
[2023-06-06] MEDS: PAZOPANIB HCL 200 MG PO SCH (21:27)
[2023-06-07] MEDS: fentaNYL 50 mcg/hour Patch TD SCH (00:52)
[2023-06-07 04:28] LABS: #Eosinphils 0.1 thou/uL (0.0-0.7); #Monocytes 0.4 thou/uL (0.11-0.59); #Neutrophils 4.1 thou/uL (1.40-6.50); %Basophils 0.2 % (0.0-1.0); %Eosinophils 0.9 % (0.0-10.0); %Lymphocytes 21.1 % (21.0-51.0); %Monocytes 6.6 % (0.0-10.0); Hematocrit 27.6 % (42.0-52.0); Hemoglobin 8.6 g/dL (14.0-18.0); Mean Corpuscular HGB CONC 31.2 g/dL (32.0-36.0); Mean Corpuscular Hemoglobin 32.1 pg (27.0-31.0); Mean Platelet Volume 11.6 fL (7.4-10.4); Platelet Count 128 10x3/uL (130-400); RBC Distribution Width 23.3 % (11.5-14.5); Red Blood Cell (RBC) Count 2.68 mill/uL (4.70-6.10); White Blood Cell (WBC) Count 5.8 10x3/uL (4.8-10.8)
[2023-06-07 04:53] LABS: Anion Gap 13 mmol/L (10-20); BUN (Urea Nitrogen) 17 mg/dL (8.4-25.7); Calc. Creatinine Clearance 107 mL/min (70-130); Calcium 8.9 mg/dL (7.8-10.44); Carbon Dioxide 29 mmol/L (23-31); Chloride 103 mmol/L (98-107); Estimated GFR 85; Glucose 83 mg/dL (80-115); Potassium 3.2 mmol/L (3.5-5.1); Sodium 142 mmol/L (136-145)
[2023-06-07] MEDS: Furosemide 40 MG/4 ML VIAL SLOW IVP SCH ×2 (06:00→14:29)
[2023-06-07] MEDS: ALPRAZolam 0.5 MG TAB PO SCH (08:31)
[2023-06-07] MEDS: Gabapentin 300 MG CAP PO SCH ×2 (08:31→14:29)
[2023-06-07] MEDS: Amlodipine 10 MG TAB PO SCH (08:33)
[2023-06-07] MEDS: Morphine ER 15 MG TAB PO SCH (08:34)
[2023-06-07] MEDS: oxyCODONE 5 MG TAB PO PRN (08:43)
[2023-06-07] MEDS ORDERED: Potassium Chloride 20 MEQ TAB PO SCH (09:00)
[2023-06-07 09:41] VITALS: BP 128/80; TEMP 97.4
== END 2023-06-07 16:01 | disposition home health service (06) | DRG 180 ==
LOC: ERS 17:58 → MSONC 20:42
PROVIDERS: ADMIT Student in an Organized Health Care Education/Training Program; ATTEND Hospitalist
PROC: 0W9930Z Drainage of Right Pleural Cavity with Drainage Device, Percutaneous Approach (ICD-10-PCS; principal; 2023-06-06)
PROC: 0JH63XZ Insertion of Tunneled Vascular Access Device into Chest Subcutaneous Tissue and Fascia, Percutaneous Approach (ICD-10-PCS; 2023-06-06)
PROC: 30233N1 Transfusion of Nonautologous Red Blood Cells into Peripheral Vein, Percutaneous Approach (ICD-10-PCS; 2023-06-06)
DX: C78.01 Secondary malignant neoplasm of right lung (principal); J96.01 Acute respiratory failure with hypoxia; C49.9 Malignant neoplasm of connective and soft tissue, unspecified; J91.0 Malignant pleural effusion; Z88.0 Allergy status to penicillin; Z79.01 Long term (current) use of anticoagulants; Z79.899 Other long term (current) drug therapy; E78.5 Hyperlipidemia, unspecified; I10 Essential (primary) hypertension; Z90.89 Acquired absence of other organs; Z98.890 Other specified postprocedural states; F41.9 Anxiety disorder, unspecified; E87.6 Hypokalemia; D63.1 Anemia in chronic kidney disease; D63.0 Anemia in neoplastic disease
CPT/HCPCS: 36415; 36430; 71045; 71250; 80048; 80053; 81001; 84443; 84484; 85025; 85610; 85730; 86850; 86900; 86901; 87070; 87205; 88112; 88305; 93005; 96374; A7048; C1729; J1642; J1940; J2060; J2250; J2270; J2704; J3490; P9016